=== PATIENT | female | born 1945 | race Caucasian/White ===

== ENCOUNTER → 2016-05-17 10:14 | Outpatient (CLI) | payer MEDICARE ==
[2015-03-20 13:55] VITALS: BMI 20.4
[~2016-05-17 10:14] MED LIST: ACETAMINOPHEN500 M1 PO; GLUCOPHAGE500 MG PO; LIBRIUM25 MG PO; MACROBID100 MG PO; MAG-OX 400 MG400 MG PO; MULTI-DAY VITAM1 TAB PO; PROAIR HFA8.5 GM INH; PROPRANOLOL HCL20 MG PO
== END | disposition home or self-care (01) ==
LOC: D.MRI 05-13 08:30
DX: M54.5 Low back pain (principal)

== ENCOUNTER 2016-06-20 15:08 | Emergency (ER) | payer MEDICARE ==
[2015-03-20 13:55] VITALS: BMI 20.4
[2016-06-20 15:34] LABS: BASOPHILS 0.4 % (0-2); HEMATOCRIT 33.4 % (36.0-48.0); HEMOGLOBIN 11.5 g/dL (12-16); IMMATURE GRANULOCYTES 0.1 % (0-5); LYMPHOCYTES 23.8 % (15-50); MCH 31.2 pg (26.0-34.0); MCHC 34.4 g/dL (31.0-37.0); MCV 90.5 fL (80.0-100.0); MEAN PLATELET VOLUME 8.9 fL (7.4-10.4); MONOCYTES 11.8 % (2-11); NEUTROPHILS 61.9 % (40-80); PLATELET COUNT 221 10x3/uL (130-400); RBC 3.69 10x6/uL (4.00-5.40); RDW 13.6 % (11.5-14.5)
[2016-06-20 16:19] LABS: ALBUMIN 3.6 g/dL (3.4-5.0); BILIRUBIN - TOTAL 0.42 mg/dL (0.2-1.3); CALCIUM 8.8 mg/dL (8.5-10.1); CARBON DIOXIDE 26.1 mmol/L (21.0-32.0); CREATININE - SERUM 1.1 mg/dL (0.6-1.3); POTASSIUM - SERUM 4.1 mmol/L (3.5-5.1); PROTEIN - SERUM 7.4 g/dL (6.4-8.2)
== END 2016-06-20 18:55 | disposition home or self-care (01) ==
LOC: D.ER 15:08
PROVIDERS: Emergency Medicine
DX: E86.0 Dehydration (principal); F41.9 Anxiety disorder, unspecified; F17.200 Nicotine dependence, unspecified, uncomplicated

== ENCOUNTER 2017-12-28 05:22 | Inpatient (IN) | payer MEDICARE ==
[~2017-12-28] VITALS: Ht 165.1 cm; Wt 45.4 kg
--- NOTE | ~2017-12-28 | OP ---
PATIENT NAME: CLIFF LINDO MEDICAL RECORD: [id number] :45 LOCATION:[facility] ADMISSION DATE:12/28/17 SURGEON: MARY KAY BURRIS DO DATE OF OPERATION: 01/02/2018 PROCEDURE PERFORMED: Right reverse total shoulder for fracture. PREOPERATIVE DIAGNOSIS: Four-part right proximal humerus fracture. POSTOPERATIVE DIAGNOSIS: Four-part right proximal humerus fracture. INDICATIONS: Ms. Lindo is a 72-year-old female who fell onto her right side 5 days ago. She fractured her right hip and her right proximal humerus. The right total hip was done on the . Her hemoglobin was low and we waited until today to do her shoulder due to that and that it would be more stress on her body. She was informed of risks and benefits of the procedure and consented to them. SURGEON: Mary Kay Burris DO DESCRIPTION OF PROCEDURE: The patient was taken to the operative suite, laid in the supine position, and positioned in beachchair. She was intubated and sedated and then the right shoulder was prepped and draped in sterile fashion. She was given 900 mg of clindamycin preoperatively. Time-out was performed. Everyone was in agreement with correct side, site, patient, and procedure. The incision then began at the deltopectoral interval down to the pec, where the proximal centimeter of the pec was released and the long head of the biceps tendon was tenodesed to that stump on the humerus. The rotator interval was then opened. The subscap and supraspinatus were then tagged with #2 Ethibond and the humeral head was exposed. A cut was made, finished it off to the fracture and then the glenoid was exposed. A centering pin was used and reamer was used to clean off the glenoid in preparation for the baseplate. The baseplate was then placed and 4 peripheral screws were put in and then the superior was put on with 3 mm of lateralization. We then reamed it by hand and it came to a #9 stem. We trialed the trial. The version was set with a version radha at 30 degrees to the elbow and then this was reduced and fit quite well. It had good position and good tension on the deltoid as well as the conjoined tendon. This was then dislocated and removed. Cement was mixed. Cement restrictor was placed down the humeral shaft and then the cement was placed down the humeral shaft. The actual stem was then placed and impacted into place. Sutures were ran through the greater tuberosity and ran around the stem itself and the poly was placed. The shoulder was reduced. It fit well and then the tuberosity was tied down to the prosthesis. A piece of humeral head was used on the prosthesis as well for bone graft in the window. Then, the greater tuberosity was tied to the stem and the subscapularis was repaired to the humerus. The rotator interval was closed with #2 Ethibond in [id number] stitches. The shoulder had good range of motion after this and any bony spikes were removed at that time with a rongeur. The wound was then thoroughly irrigated and closed with 2-0 Vicryl in inverted interrupted fashion and 4-0 Monocryl on the skin. Then, a Prineo Dermabond was placed on the skin for skin closure and then Adaptic, ABD pad, and Medipore were placed on the shoulder. The patient was placed in a sling, awakened, and taken to recovery in stable condition. BLOOD LOSS: Approximately 100 mL. OPERATIVE REPORT [id number] CLIFF LINDO COMPLICATIONS: None. TRANSINT:[id number] Voice Confirmation ID: [id number] DOCUMENT ID: [id number] MARY KAY BURRIS DO at 1447 CC: [id number] DICTATION DATE: 01/02/18 1542 DAIRY EQUIPMENT INSTALLER: 01/02/18 1826 [facility] [place] IN [facility] [address] [place] [address]
--- NOTE | ~2017-12-28 | MORECARE ---
CASE MANAGEMENT DISCHARGE SUMMARY PATIENT: CLIFF LINDO UNIT: [id number] ADM DATE: 12/28/17 AGE: 72 : 45 SEX: F ROOM/BED: D.2201 AUTHOR: HEATHER CRYSTAL PHYSICIAN: REFERRING PHYSICIAN: SHONA DAMON MD DATE OF SERVICE: 01/10/18 Discharge Plan Patient Name: CLIFF LINDO Facility: [facility]:[place] : 1945 Planned Disposition: Inpatient Rehab Anticipated Discharge Date: Discharge Date: 01/04/2018 Expected LOS: 0 Initial Reviewer: [email or web address] Initial Review Date: 12/28/2017 Generated: 01/10/18 9:57 am Comments DCP- Discharge Planning Updated by [email or web address]: Madina Fischer on 01/04/18 12:[address] I spoke with mr Bustamante to let him know that she was being dc to inpatient rehab DCP- Discharge Planning Updated by [id number]: Madina Fischer on 01/04/18 12:[address] imm served and explained DCP- Discharge Planning Updated by [id number]: Madina Fischer on 01/01/18 1:[address] Patient Name: CLIFF LINDO Admission Status: ER Accout number: [id number] Admission Date: 12-28-2017 : 1945 Admission Diagnosis: Attending: SHONA DAMON Current LOS: 4 Anticipated DC Date: Planned Disposition: Inpatient Rehab Primary Insurance: MEDICARE A & B Discharge Planning Comments: CM met with patient to assess discharge planning needs. Patient lives independently with her and son where she plans to return after inpatient rehab. 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 She denies any DME or home health. She and her son agree that she will need inpatient rehab when she is discharged. They plan on taking a cab home. She will need walker and BSC when she is discharged. She is having arm surgery tomorrow. CM will continue to follow and assist with DC planning Side Stitching Machine Operator: Madina Fischer DCPIA - Discharge Planning Initial Assessment Updated by [email or web address]: Madina Fischer on 01/01/18 2:27 pm * Is the patient Alert and Oriented? Yes * How many steps to enter\exit or inside your home? ramp * PCP angy * Pharm[facility] * Preadmission Environment Home with Family * ADLs Independent * Equipment None * List name and contact numbers for known caregivers / representatives who currently or will assist patient after discharge: augustine Bustamante (son) [phone] * Verbal permission to speak to the caregivers and representatives has been obtained from the patient. Yes * Community resources currently utilized None * Additional services required to return to the preadmission environment? Yes * Can the patient safely return to the preadmission environment? No * Has this patient been hospitalized within the prior 30 days at any hospital? No Coverage Notice Reviewer: [id number] Jaime Fischer Notice Issued Date-Time: 01/04/2018 13:40 Notice Type: IM Discharge Notice Notice Delivered To: Patient Relationship to Patient: Fur Dry Cleaner Name: Delivery Method: HAND - Hand Delivered Sayra Days: Prior Verbal Notification: Recipient Understood Notice: Yes Recipient Signature: Yes Med Rec Note Co-signed by Attending: Coverage Notice Comment: Last DP export: 01/04/18 12:58 Patient Name: CLIFF LINDO Page [id number] at 0857 All edits/amendments must be made on the electronic document DICTATION DATE: 01/10/18856 CANVAS WORKER: TED 01/10/18856 RPT#: [id number] DC DATE:01/04/18 STATUS: DIS IN [facility] [address] [place] [address] END OF REPORT
--- NOTE | ~2017-12-28 | OP ---
PATIENT NAME: CLIFF LINDO MEDICAL RECORD: [id number] :45 LOCATION:[facility] ADMISSION DATE:12/28/17 SURGEON: DOE BURRIS DO DATE OF OPERATION: 12/28/2017 PROCEDURE PERFORMED: Right total hip arthroplasty. PREOPERATIVE DIAGNOSIS: Right femoral neck fracture. POSTOPERATIVE DIAGNOSIS: Right femoral neck fracture. INDICATIONS: Ms. Lindo is a 72-year-old female who had been sober for 2 years she said and got hold of a bottle last night, got drunk and fell onto her right side. She fractured her right hip at the subcapital region. She is a smoker and she says she does not drink any more other than last night. She fell onto her right side, fractured her right hip and her right proximal humerus. I decided to do the right hip first to get her up and ambulating. I informed her of the risks and benefits of the procedure including infection, bleeding, damage to nerves and vessels, fracture, need for further surgery. She was okay with those risks and she consented to the procedure, even blood clots and as the risk. She was okay with that and then consented to the procedure. SURGEON: Doe Burris DO ENGINEERING TEACHER: Kayode Field MD DESCRIPTION OF PROCEDURE: The patient was taken to the operative suite, laid in supine position, the right hip was prepped and draped in sterile fashion and then a timeout was performed. Everyone was in agreement as to the correct site, side, and patient. The patient received 2 grams of Ancef preoperatively. The incision was then began over the tensor fascia isaura using a 10-blade and then a Bovie. Careful dissection was made down to the tensor fascia isaura fascia. This was incised and the fascia was taken anterior to the muscle belly posteriorly. The interval in between the rectus was then opened up and the rectus was taken medially and tensor fascia isaura taken laterally. This procedure was assisted by Dr. Ezra Field. Once the interval was then opened between the tensor fascia isaura and the rectus, the ascending branch of the lateral femoral circumflex was found and tied and then Bovied and Aquamantys was used to coagulate as well. The capsule was then exposed and once the capsule was opened, a hamilton of blood came out due to the fracture. The capsule was then opened and tagged. Hohmanns were placed around the neck. The neck cut was made. The head was then removed and the pulvinar and ligamentum teres was removed out of the acetabulum. Reaming then began, we reamed up to a 48 and 48 cup fit nicely using OsseoTI 48 acetabular cup, a 38 bearing G7 dual mobility hip, and then once the acetabulum was placed it was in good position seen on x-ray. The femur was exposed and the canal finder was used and the Vessel cutter was then used posteriorly. The broaching began at 4 up to 8 and then reduced. Once the hip was reduced with a -3 neck, it seemed to be the correct fit. It was then dislocated again. Once it was dislocated, the stem was kind of loose and a 9 broach was put down and a 9 stem was put down and then we used a high offset 9 Taperloc stem on the femur. This was then reduced and seemed to be in good position and the actual implant was put on and reduced. AP pelvis was taken as well as a right hip to confirm good placement and good fit with the 9. No fracture was seen in the femur either. Thorough irrigation was done throughout the procedure and the capsule was then closed. Surgicel powder and tobramycin, vancomycin were placed in the OPERATIVE REPORT [id number] CLIFF LINDO wound. The tensor fascia isaura fascia was then closed with #1 Vicryl in a npjcio-bs-anhxp in a running locking stitch. The skin was closed with 2-0 Vicryl in inverted interrupted fashion, 4-0 Monocryl was ran the skin, and Prineo glue placed on the skin. Telfa and Tegaderm were placed on the hip. The patient was then awakened and taken to recovery in stable condition. BLOOD LOSS: Approximately 150 mL. COMPLICATIONS: None. TRANSINT:[id number] Voice Confirmation ID: [id number] DOCUMENT ID: [id number] DOE BURRIS DO at 1011 CC: [id number] DICTATION DATE: 12/28/17 1555 SERVICES TECH: 12/28/17 5220 ADM IN [facility] [id number] [place] [address]
--- NOTE | ~2017-12-28 | MORECARE ---
CASE MANAGEMENT DISCHARGE SUMMARY PATIENT: CLIFF LINDO UNIT: [id number] ADM DATE: 12/28/17 AGE: 72 : 45 SEX: F ROOM/BED: D.2201 AUTHOR: BONILLADOC PHYSICIAN: REFERRING PHYSICIAN: SHONA DAMON MD DATE OF SERVICE: 01/04/18 Discharge Plan Patient Name: CLIFF LINDO Facility: [facility]:[place] : 1945 Planned Disposition: Inpatient Rehab Anticipated Discharge Date: Discharge Date: Expected LOS: Initial Reviewer: [id number] Initial Review Date: 12/28/2017 Generated: 01/04/18 2:50 pm Comments DCP- Discharge Planning Updated by [id number]: Madina Fischer on 01/04/18 12:[address] imm served and explained DCP- Discharge Planning Updated by [email or web address]: Madina Fischer on 01/01/18 1:[address] Patient Name: CLIFF LINDO Admission Status: ER Accout number: [id number] Admission Date: 12-28-2017 : 1945 Admission Diagnosis: Attending: SHONA DAMON Current LOS: 4 Anticipated DC Date: Planned Disposition: Inpatient Rehab Primary Insurance: MEDICARE A & B Discharge Planning Comments: CM met with patient to assess discharge planning needs. Patient lives independently with her and son where she plans to return after inpatient rehab. 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 She denies any DME or home health. She and her son agree that she will need inpatient rehab when she is discharged. They plan on taking a cab home. She will need walker and BSC when she is discharged. She is having arm surgery tomorrow. CM will continue to follow and assist with DC planning Construction Rigger: Madina Fischer DCPIA - Discharge Planning Initial Assessment Updated by [email or web address]: Madina Fischer on 01/01/18 2:27 pm * Is the patient Alert and Oriented? Yes * How many steps to enter\exit or inside your home? ramp * PCP angy * Pharmacy [place] * Preadmission Environment Home with Family * ADLs Independent * Equipment None * List name and contact numbers for known caregivers / representatives who currently or will assist patient after discharge: augustine Bustamante (son) [phone] * Verbal permission to speak to the caregivers and representatives has been obtained from the patient. Yes * Community resources currently utilized None * Additional services required to return to the preadmission environment? Yes * Can the patient safely return to the preadmission environment? No * Has this patient been hospitalized within the prior 30 days at any hospital? No Coverage Notice Reviewer: [id number] Jaime Fischer Notice Issued Date-Time: 01/04/2018 13:40 Notice Type: IM Discharge Notice Notice Delivered To: Patient Relationship to Patient: Sales Manager Prearranged Funerals Name: Delivery Method: HAND - Hand Delivered Sayra Days: Prior Verbal Notification: Recipient Understood Notice: Yes Recipient Signature: Yes Med Rec Note Co-signed by Attending: Coverage Notice Comment: Last DP export: 01/01/18 1:36 Patient Name: CLIFF LINDO Page [id number] at 1351 All edits/amendments must be made on the electronic document DICTATION DATE: 01/04/18 1350 CUSTOM HOME INSTALLER: TED 01/04/18 1350 RPT#: [id number] DC DATE: STATUS: ADM IN [facility] [address] [place] [address] END OF REPORT
--- NOTE | ~2017-12-28 | MORECARE ---
CASE MANAGEMENT DISCHARGE SUMMARY PATIENT: CLIFF LINDO UNIT: [id number] ADM DATE: 12/28/17 AGE: 72 : 45 SEX: F ROOM/BED: D.2201 AUTHOR: HEATHER CRYSTAL PHYSICIAN: REFERRING PHYSICIAN: SHONA DAMON MD DATE OF SERVICE: 01/04/18 Discharge Plan Patient Name: CLIFF LINDO Facility: [facility]:[place] : 1945 Planned Disposition: Inpatient Rehab Anticipated Discharge Date: Discharge Date: Expected LOS: Initial Reviewer: [id number] Initial Review Date: 12/28/2017 Generated: 01/04/18 2:58 pm Comments DCP- Discharge Planning Updated by [email or web address]: Madina Fischer on 01/04/18 12:[address] I spoke with mr Bustamante to let him know that she was being dc to inpatient rehab DCP- Discharge Planning Updated by [email or web address]: Madina Fischer on 01/04/18 12:[address] imm served and explained DCP- Discharge Planning Updated by [id number]: Madina Fischer on 01/01/18 1:[address] Patient Name: CLIFF LINDO Admission Status: ER Accout number: [id number] Admission Date: 12-28-2017 : 1945 Admission Diagnosis: Attending: SHONA DAMON Current LOS: 4 Anticipated DC Date: Planned Disposition: Inpatient Rehab Primary Insurance: MEDICARE A & B Discharge Planning Comments: CM met with patient to assess discharge planning needs. Patient lives independently with her and son where she plans to return after inpatient rehab. 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 She denies any DME or home health. She and her son agree that she will need inpatient rehab when she is discharged. They plan on taking a cab home. She will need walker and BSC when she is discharged. She is having arm surgery tomorrow. CM will continue to follow and assist with DC planning Woolen Tester: Madina Fischer DCPIA - Discharge Planning Initial Assessment Updated by [id number]: Madian Fischer on 01/01/18 2:27 pm * Is the patient Alert and Oriented? Yes * How many steps to enter\exit or inside your home? ramp * PCP angy * Pharmacy [facility] * Preadmission Environment Home with Family * ADLs Independent * Equipment None * List name and contact numbers for known caregivers / representatives who currently or will assist patient after discharge: augustine Bustamante (son) [phone] * Verbal permission to speak to the caregivers and representatives has been obtained from the patient. Yes * Community resources currently utilized None * Additional services required to return to the preadmission environment? Yes * Can the patient safely return to the preadmission environment? No * Has this patient been hospitalized within the prior 30 days at any hospital? No Coverage Notice Reviewer: [email or web address] Jaime Fischer Notice Issued Date-Time: 01/04/2018 13:40 Notice Type: IM Discharge Notice Notice Delivered To: Patient Relationship to Patient: Assistant Librarian Name: Delivery Method: HAND - Hand Delivered Sayra Days: Prior Verbal Notification: Recipient Understood Notice: Yes Recipient Signature: Yes Med Rec Note Co-signed by Attending: Coverage Notice Comment: Last DP export: 01/04/18 12:51 Patient Name: CLIFF LINDO Page 17223 at 1358 All edits/amendments must be made on the electronic document DICTATION DATE: 01/04/181357 WOOD CALKER: TED 01/04/18 1358 RPT#: [id number] DC DATE: STATUS: ADM IN [facility] [address] [place] [address] END OF REPORT
--- NOTE | ~2017-12-28 | MORECARE ---
CASE MANAGEMENT DISCHARGE SUMMARY PATIENT: CLIFF LINDO UNIT: [id number] ADM DATE: 12/28/17 AGE: 72 : 45 SEX: F ROOM/BED: D.2201 AUTHOR: HEATHER CRYSTAL PHYSICIAN: REFERRING PHYSICIAN: SHONA DAMON MD DATE OF SERVICE: 01/01/18 Discharge Plan Patient Name: CLIFF LINDO Facility: [facility]:[place] : 1945 Planned Disposition: Inpatient Rehab Anticipated Discharge Date: Discharge Date: Expected LOS: Initial Reviewer: [email or web address] Initial Review Date: 12/28/2017 Generated: 01/01/18 3:36 pm Comments DCP- Discharge Planning Updated by [email or web address]: Madina Fischer on 01/01/18 1:[address] Patient Name: CLIFF LINDO Admission Status: ER Accout number: [id number] Admission Date: 12-28-2017 : 1945 Admission Diagnosis: Attending: SHONA DAMON Current LOS: 4 Anticipated DC Date: Planned Disposition: Inpatient Rehab Primary Insurance: MEDICARE A & B Discharge Planning Comments: CM met with patient to assess discharge planning needs. Patient lives independently with her and son where she plans to return after inpatient rehab. 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 She denies any DME or home health. She and her son agree that she will need inpatient rehab when she is discharged. They plan on taking a cab home. She will need walker and BSC when she is discharged. She is having arm surgery tomorrow. CM will continue to follow and assist with DC planning Program Scheduler: Madina Fischer DCPIA - Discharge Planning Initial Assessment Updated by [email or web address]: Madina Fischer on 01/01/18 2:27 pm * Is the patient Alert and Oriented? Yes * How many steps to enter\exit or inside your home? ramp * PCP angy * Pharmacy [facility] * Preadmission Environment Home with Family * ADLs Independent * Equipment None * List name and contact numbers for known caregivers / representatives who currently or will assist patient after discharge: augustine Bustamante (son) [phone] * Verbal permission to speak to the caregivers and representatives has been obtained from the patient. Yes * Community resources currently utilized None * Additional services required to return to the preadmission environment? Yes * Can the patient safely return to the preadmission environment? No * Has this patient been hospitalized within the prior 30 days at any hospital? No Patient Name: CLIFF LINDO Page 70052 at 1436 All edits/amendments must be made on the electronic document DICTATION DATE: 01/01/181435 ROLL SHOP SUPERVISOR: TED 01/01/181435 RPT#: [id number] DC DATE: STATUS: ADM IN [facility] [address] [place] [address] END OF REPORT
--- NOTE | ~2017-12-28 | HP ---
PATIENT: CLIFF LINDO MEDICAL RECORD: [id number] ACCOUNT: [id number] LOCATION:[facility] : 45 ADMISSION DATE: 12/28/17 PCP: SHONA DAMON MD HISTORY AND PHYSICAL EXAMINATION DATE OF ADMISSION: 12/28/2017 CHIEF COMPLAINT: Pain in right shoulder and pain in right hip. HISTORY OF PRESENT ILLNESS: The patient is a 72-year-old female who had fallen last night. She states she has not had any alcohol in the last 2 to 2-1/2 years. She did buy a pint of whiskey. After drinking whiskey, she states she attempted to answer phone, falling on the floor. She apparently laid in the floor from 6:00 p.m. to 6:00 a.m. this morning. She presented to the Emergency Room, where she was found to have a right hip fracture as well as a right proximal humeral fracture. It was felt the patient warranted admission. PAST MEDICAL HISTORY: Her past history is significant in that she has had history of having COPD. She has had vitamin D deficiency, hyperlipidemia, anxiety, prior history of alcoholism, tobacco use, and essential tremor. She has had history of having asthma in the past. MEDICATIONS: She has been on BuSpar 15 mg one tablet p.o. b.i.d., nabumetone 500 mg two tablets p.o. q.a.m., primidone 250 mg once a day, Ventolin inhaler two puffs q. 4 hours p.r.n. shortness of breath, and Zoloft 50 mg one p.o. daily. ALLERGIES: No known drug allergies. SOCIAL HISTORY: The patient is retired. Educated through the 12th grade. She is . She continues to be a smoker of a pack a day. She has smoked since age 16. She has had a history of alcoholism; but, as stated above, she has not had any alcohol for the past 2-1/2 years until yesterday. FAMILY HISTORY: Noncontributory. REVIEW OF SYSTEMS: CONSTITUTIONAL: She denies any headache, seizure, or syncope. She denies any change in visual or auditory acuity. PULMONARY: She denies any shortness of breath, cough or congestion, history of TB, asthma, or bronchitis. CARDIOVASCULAR: She has had no chest pain, palpitation, PND, or orthopnea. GASTROINTESTINAL: No chronic nausea, vomiting, melena, or hematochezia. GENITOURINARY: No urgency, frequency, or dysuria. PHYSICAL EXAMINATION: GENERAL: In the Emergency Room, she is alert. She is oriented times 3. VITAL SIGNS: Her temperature is 96.8, pulse 84, respirations 18, blood pressure 170/69, and O2 sat is 98%. HEENT: Her head is normocephalic. No lesions. Ears; TMs clear. Eyes; pupils are equal, round, and reactive to light. Her extraocular movements are intact. Her nasal cavity, oral cavity, and oropharynx clear. NECK: Supple. There is no adenopathy. HEART: Regular rate and rhythm without any murmurs, gallops, or rubs. LUNGS: Clear. HISTORY AND PHYSICAL [id number] CLIFF LINDO RAVEN ABDOMEN: Soft and nontender. EXTREMITIES: The patient has large area of ecchymosis over the right shoulder. She does have pain with movement. She also has shortening internal rotation of the right lower extremity and pain in the groin. DIAGNOSTIC DATA: She did have a CT scan of the head. CT scan showed mild chronic microvascular ischemic changes. No acute intracranial abnormalities were noted. Shoulder x-ray revealed impacted comminuted fracture of the right humeral neck as well as the head, extending through the greater tuberosity. Hip x-ray revealed probable nondisplaced fracture of the right femoral neck. LABORATORY DATA: She had a white count of 10.8, hemoglobin 10.9, hematocrit 31.2, and her platelets are 208. Sodium 129, potassium 4.1, chloride is 94, CO2 is 27, BUN is 5, and creatinine is 0.5. INR is 1.0. ASSESSMENT: Status post fall secondary to intoxication of alcohol, right humeral fracture, right hip fracture, history of COPD, anxiety, and essential tremor. PLAN: The patient is admitted. Orthopedic consultation will be obtained for open reduction and internal fixation of the fractures. We will start DT precautions. TRANSINT:[id number] Voice Confirmation ID: [id number] DOCUMENT ID: [id number] SHONA DAMON MD at 0658 CC: [id number] DICTATION DATE: 11/08/18 1822 ENGINEERING SURVEYOR: 12/28/172001 ADM IN [facility] [address] [id number]
[2017-12-28] MEDS ORDERED: MYSOLINE 50 MG50 MG PO (05:26)
[2017-12-28] MEDS ORDERED: PAXIL20 MG PO (05:27)
[2017-12-28 07:42] LABS: BASOPHILS 0.1 % (0-2); EOSINOPHILS 0.2 % (0-7); HEMATOCRIT 31.2 % (36.0-48.0); HEMOGLOBIN 10.9 g/dL (12-16); IMMATURE GRANULOCYTES 0.3 % (0-5); LYMPHOCYTES 8.5 % (15-50); MCH 35.6 pg (26.0-34.0); MCHC 34.9 g/dL (31.0-37.0); MEAN PLATELET VOLUME 8.5 fL (7.4-10.4); MONOCYTES 10.8 % (2-11); NEUTROPHILS 80.1 % (40-80); PLATELET COUNT 208 10x3/uL (130-400); RBC 3.06 10x6/uL (4.00-5.40); RDW 14.3 % (11.5-14.5); WBC 10.8 10x3/uL (4.8-10.8)
[2017-12-28 07:43] VITALS: BP 156/80
[2017-12-28 08:03] LABS: ALBUMIN 3.2 g/dL (3.4-5.0); ALKALINE PHOSPHATASE 100 U/L (46-116); ALT (SGPT) 18 U/L (10-68); BILIRUBIN - TOTAL 0.61 mg/dL (0.2-1.3); CALC OSMOLALITY 255 mosm/kg (275-300); CALCIUM 8.1 mg/dL (8.5-10.1); CARBON DIOXIDE 27.7 mmol/L (21.0-32.0); CHLORIDE - SERUM 94 mmol/L (98-107); CREATININE - SERUM 0.6 mg/dL (0.6-1.3); GLUCOSE 105 mg/dL (74-106); MAGNESIUM - SERUM 1.4 mg/dL (1.8-2.4); POTASSIUM - SERUM 4.1 mmol/L (3.5-5.1); PROTEIN - SERUM 6.5 g/dL (6.4-8.2); SODIUM 129 mmol/L (136-145); UREA NITROGEN 5 mg/dL (7-18); eGFR NON AFRICAN AMERICAN > 90 mL/min (90-120)
[2017-12-28 08:16] LABS: INR 1.02 (0.85-1.17); PROTIME 13.1 SECONDS (11.6-15.0)
[2017-12-28 17:03] VITALS: BP 179/65
[2017-12-28 18:05] VITALS: BP 179/65
[2017-12-28 19:47] VITALS: BP 164/76
[2017-12-29] VITALS (11 sets, daily range): BP systolic 109–154; BP diastolic 46–61; Ht 165.1 cm; Wt 45.4 kg
[2017-12-29 06:14] LABS: CALC OSMOLALITY 256 mosm/kg (275-300); CALCIUM 7.4 mg/dL (8.5-10.1); CARBON DIOXIDE 24.9 mmol/L (21.0-32.0); CHLORIDE - SERUM 97 mmol/L (98-107); CREATININE - SERUM 0.6 mg/dL (0.6-1.3); GLUCOSE 83 mg/dL (74-106); POTASSIUM - SERUM 3.7 mmol/L (3.5-5.1); SODIUM 130 mmol/L (136-145); UREA NITROGEN 4 mg/dL (7-18); eGFR NON AFRICAN AMERICAN > 90 mL/min (90-120)
[2017-12-29 07:14] LABS: BASOPHILS 0.1 % (0-2); EOSINOPHILS 0 % (0-7); IMMATURE GRANULOCYTES 0.5 % (0-5); LYMPHOCYTES 13.3 % (15-50); MCH 34.2 pg (26.0-34.0); MCV 103.7 fL (80.0-100.0); MEAN PLATELET VOLUME 10.1 fL (7.4-10.4); MONOCYTES 10.5 % (2-11); NEUTROPHILS 75.6 % (40-80); RDW 14.5 % (11.5-14.5)
[2017-12-29 07:16] LABS: RBC 2.19 10x6/uL (4.00-5.40); WBC 7.9 10x3/uL (4.8-10.8)
[2017-12-29 07:17] LABS: HEMATOCRIT 22.7 % (36.0-48.0); HEMOGLOBIN 7.5 g/dL (12-16); PLATELET COUNT 109 10x3/uL (130-400)
[2017-12-30 01:05] VITALS: BP 153/62
[2017-12-30 04:45] VITALS: BP 165/66
[2017-12-30 06:13] LABS: BASOPHILS 0.1 % (0-2); EOSINOPHILS 0.2 % (0-7); IMMATURE GRANULOCYTES 0.3 % (0-5); LYMPHOCYTES 8.6 % (15-50); MCHC 34.4 g/dL (31.0-37.0); MEAN PLATELET VOLUME 8.9 fL (7.4-10.4); MONOCYTES 11.9 % (2-11); NEUTROPHILS 78.9 % (40-80); RDW 17.3 % (11.5-14.5)
[2017-12-30 06:21] LABS: HEMATOCRIT 30.5 % (36.0-48.0); HEMOGLOBIN 10.5 g/dL (12-16); MCV 95.9 fL (80.0-100.0); PLATELET COUNT 176 10x3/uL (130-400); RBC 3.18 10x6/uL (4.00-5.40); WBC 10.9 10x3/uL (4.8-10.8)
[2017-12-30 06:26] LABS: CALC OSMOLALITY 254 mosm/kg (275-300); CALCIUM 7.6 mg/dL (8.5-10.1); CARBON DIOXIDE 26.1 mmol/L (21.0-32.0); CHLORIDE - SERUM 94 mmol/L (98-107); CREATININE - SERUM 0.6 mg/dL (0.6-1.3); GLUCOSE 115 mg/dL (74-106); POTASSIUM - SERUM 3.4 mmol/L (3.5-5.1); SODIUM 127 mmol/L (136-145); UREA NITROGEN 9 mg/dL (7-18); eGFR NON AFRICAN AMERICAN > 90 mL/min (90-120)
[2017-12-30 09:18] VITALS: BP 150/61
[2017-12-30 12:28] VITALS: BP 153/68
[2017-12-30 16:28] VITALS: BP 122/52
[2017-12-30 20:06] VITALS: BP 125/53
[2017-12-31 04:26] VITALS: BP 140/58
[2017-12-31 05:01] LABS: BASOPHILS 0.1 % (0-2); EOSINOPHILS 0.8 % (0-7); HEMATOCRIT 27.6 % (36.0-48.0); HEMOGLOBIN 9.5 g/dL (12-16); IMMATURE GRANULOCYTES 0.4 % (0-5); LYMPHOCYTES 9.1 % (15-50); MCH 32.8 pg (26.0-34.0); MCHC 34.4 g/dL (31.0-37.0); MCV 95.2 fL (80.0-100.0); MEAN PLATELET VOLUME 8.7 fL (7.4-10.4); MONOCYTES 11.6 % (2-11); PLATELET COUNT 174 10x3/uL (130-400); WBC 11.4 10x3/uL (4.8-10.8)
[2017-12-31 05:11] LABS: CALC OSMOLALITY 253 mosm/kg (275-300); CALCIUM 7.5 mg/dL (8.5-10.1); CARBON DIOXIDE 27.6 mmol/L (21.0-32.0); CHLORIDE - SERUM 94 mmol/L (98-107); GLUCOSE 107 mg/dL (74-106); POTASSIUM - SERUM 3.5 mmol/L (3.5-5.1); SODIUM 127 mmol/L (136-145); UREA NITROGEN 10 mg/dL (7-18)
[2017-12-31 05:14] LABS: CREATININE - SERUM 0.4 mg/dL (0.6-1.3); eGFR NON AFRICAN AMERICAN > 90 mL/min (90-120)
[2017-12-31 09:47] VITALS: BP 148/65
[2017-12-31 13:46] VITALS: BP 146/71
[2017-12-31 16:47] VITALS: BP 129/62
[2017-12-31 21:29] VITALS: BP 134/58
[2018-01-01 04:23] LABS: BASOPHILS 0.1 % (0-2); CALC OSMOLALITY 252 mosm/kg (275-300); CALCIUM 7.8 mg/dL (8.5-10.1); CARBON DIOXIDE 27.5 mmol/L (21.0-32.0); CHLORIDE - SERUM 93 mmol/L (98-107); CREATININE - SERUM 0.5 mg/dL (0.6-1.3); EOSINOPHILS 1.3 % (0-7); GLUCOSE 101 mg/dL (74-106); HEMATOCRIT 26.9 % (36.0-48.0); HEMOGLOBIN 9.5 g/dL (12-16); IMMATURE GRANULOCYTES 0.2 % (0-5); LYMPHOCYTES 12.5 % (15-50); MCH 33.8 pg (26.0-34.0); MCHC 35.3 g/dL (31.0-37.0); MCV 95.7 fL (80.0-100.0); MEAN PLATELET VOLUME 8.5 fL (7.4-10.4); MONOCYTES 13.8 % (2-11); NEUTROPHILS 72.1 % (40-80); PLATELET COUNT 205 10x3/uL (130-400); POTASSIUM - SERUM 3.8 mmol/L (3.5-5.1); RBC 2.81 10x6/uL (4.00-5.40); RDW 16.5 % (11.5-14.5); SODIUM 126 mmol/L (136-145); UREA NITROGEN 12 mg/dL (7-18); WBC 10.6 10x3/uL (4.8-10.8); eGFR NON AFRICAN AMERICAN > 90 mL/min (90-120)
[2018-01-01 05:02] VITALS: BP 146/63
[2018-01-01 08:32] VITALS: BP 149/69
[2018-01-01 12:48] VITALS: BP 110/55
[2018-01-01 17:17] VITALS: BP 135/59
[2018-01-01 21:11] VITALS: BP 146/62
[2018-01-02] VITALS (8 sets, daily range): BP systolic 120–152; BP diastolic 55–72
[2018-01-02 05:08] LABS: BASOPHILS 0.1 % (0-2); CALC OSMOLALITY 257 mosm/kg (275-300); CARBON DIOXIDE 28.8 mmol/L (21.0-32.0); CHLORIDE - SERUM 94 mmol/L (98-107); CREATININE - SERUM 0.5 mg/dL (0.6-1.3); GLUCOSE 109 mg/dL (74-106); HEMOGLOBIN 9.1 g/dL (12-16); IMMATURE GRANULOCYTES 0.3 % (0-5); LYMPHOCYTES 12.2 % (15-50); MCH 32.6 pg (26.0-34.0); MCHC 33.7 g/dL (31.0-37.0); MCV 96.8 fL (80.0-100.0); MEAN PLATELET VOLUME 8.7 fL (7.4-10.4); MONOCYTES 16.8 % (2-11); NEUTROPHILS 67.6 % (40-80); PLATELET COUNT 237 10x3/uL (130-400); RBC 2.79 10x6/uL (4.00-5.40); RDW 16.3 % (11.5-14.5); SODIUM 128 mmol/L (136-145); UREA NITROGEN 13 mg/dL (7-18); eGFR NON AFRICAN AMERICAN > 90 mL/min (90-120)
[2018-01-03 03:39] VITALS: BP 161/59
[2018-01-03 04:55] LABS: BASOPHILS 0.1 % (0-2); EOSINOPHILS 1.7 % (0-7); HEMATOCRIT 27.5 % (36.0-48.0); HEMOGLOBIN 9.3 g/dL (12-16); IMMATURE GRANULOCYTES 0.4 % (0-5); LYMPHOCYTES 11.2 % (15-50); MCH 32.9 pg (26.0-34.0); MCHC 33.8 g/dL (31.0-37.0); MCV 97.2 fL (80.0-100.0); MEAN PLATELET VOLUME 8.8 fL (7.4-10.4); MONOCYTES 16.6 % (2-11); PLATELET COUNT 270 10x3/uL (130-400); RBC 2.83 10x6/uL (4.00-5.40); RDW 16.2 % (11.5-14.5); WBC 10.7 10x3/uL (4.8-10.8)
[2018-01-03 05:24] LABS: CALCIUM 7.6 mg/dL (8.5-10.1); CHLORIDE - SERUM 94 mmol/L (98-107); GLUCOSE 101 mg/dL (74-106); POTASSIUM - SERUM 4.6 mmol/L (3.5-5.1); SODIUM 129 mmol/L (136-145); eGFR NON AFRICAN AMERICAN 87 mL/min (90-120)
[2018-01-03 05:27] LABS: CALC OSMOLALITY 260 mosm/kg (275-300); CREATININE - SERUM 0.7 mg/dL (0.6-1.3); UREA NITROGEN 19 mg/dL (7-18)
[2018-01-03 09:03] VITALS: BP 162/72
[2018-01-03 12:36] VITALS: BP 166/72
[2018-01-03 16:52] VITALS: BP 166/65
[2018-01-03 20:00] VITALS: BP 169/68
[2018-01-04 03:00] VITALS: BP 153/68
[2018-01-04 05:03] LABS: BASOPHILS 0.2 % (0-2); EOSINOPHILS 1.1 % (0-7); HEMATOCRIT 27.4 % (36.0-48.0); HEMOGLOBIN 9.5 g/dL (12-16); IMMATURE GRANULOCYTES 0.7 % (0-5); LYMPHOCYTES 6.6 % (15-50); MCH 32.9 pg (26.0-34.0); MCHC 34.7 g/dL (31.0-37.0); MEAN PLATELET VOLUME 8.7 fL (7.4-10.4); NEUTROPHILS 76.4 % (40-80); PLATELET COUNT 313 10x3/uL (130-400); RBC 2.89 10x6/uL (4.00-5.40); RDW 16.2 % (11.5-14.5); WBC 13.2 10x3/uL (4.8-10.8)
[2018-01-04 05:25] LABS: MCV 94.8 fL (80.0-100.0)
[2018-01-04 05:32] LABS: CALCIUM 7.8 mg/dL (8.5-10.1); CHLORIDE - SERUM 91 mmol/L (98-107); GLUCOSE 118 mg/dL (74-106); POTASSIUM - SERUM 4.2 mmol/L (3.5-5.1); SODIUM 124 mmol/L (136-145)
[2018-01-04 05:54] LABS: CALC OSMOLALITY 251 mosm/kg (275-300); CREATININE - SERUM 0.5 mg/dL (0.6-1.3); UREA NITROGEN 14 mg/dL (7-18); eGFR NON AFRICAN AMERICAN > 90 mL/min (90-120)
[2018-01-04 08:57] VITALS: BP 162/72
[2018-01-04] MEDS ORDERED: ELIQUIS2.5 MG PO (11:44)
[2018-01-04] MEDS ORDERED: MYSOLINE250 MG PO (11:45)
[2018-01-04] MEDS ORDERED: MEGACE400 MG/10 PO (11:47)
[2018-01-04] MEDS ORDERED: NORCO 5/325 TAB1 TAB PO (11:47)
[2018-01-04 12:46] VITALS: BP 198/93
[2018-01-04] MEDS ORDERED: CALCIUM 250+D T1 TAB PO (16:55)
[2018-01-04] MEDS ORDERED: MULTI-DAY VITAM1 TAB PO (16:56)
[2018-01-04] MEDS ORDERED: SENNA8.6 MG PO (16:56)
== END 2018-01-04 16:06 | DRG 469 ==
LOC: D.ER 05:22 → D.MS 07:24 → D.EDHOLD 07:24 → D.MS 08:33
PROVIDERS: Emergency Medicine; Family Medicine; Orthopaedic Surgery
PROC: 0SR90JZ Replacement of Right Hip Joint with Synthetic Substitute, Open Approach (ICD-10-PCS; principal; 2017-12-28 12:00)
PROC: 0RRJ00Z Replacement of Right Shoulder Joint with Reverse Ball and Socket Synthetic Substitute, Open Approach (ICD-10-PCS; 2018-01-02)
DX: S42.251A Displaced fracture of greater tuberosity of right humerus, initial encounter for closed fracture (principal); S72.011A Unspecified intracapsular fracture of right femur, initial encounter for closed fracture; D62 Acute posthemorrhagic anemia; J44.9 Chronic obstructive pulmonary disease, unspecified; F10.10 Alcohol abuse, uncomplicated; W19.XXXA Unspecified fall, initial encounter

== ENCOUNTER 2018-01-04 16:37 | Inpatient (IN) | payer MEDICARE ==
[~2018-01-04] VITALS: Ht 165.1 cm; Wt 47.6 kg
--- NOTE | ~2018-01-04 | RHP ---
PATIENT: CLIFF LINDO MEDICAL RECORD: [id number] ACCOUNT: [id number] LOCATION:[facility] : 45 ADMISSION DATE: 01/04/18 REHABILITATION HISTORY AND PHYSICAL EXAMINATION POST ADMISSION PHYSICIAN EXAMINATION DATE OF ADMISSION: 01/04/2018 ADMITTING DIAGNOSES: Major multiple fractures, status post right total hip replacement secondary to acute nondisplaced right hip subcapital fracture, also status post total shoulder arthroplasty secondary to a comminuted fracture of the right humeral head and neck with involvement of the greater tuberosity. HISTORY OF PRESENT ILLNESS: The patient admitted to inpatient rehab for multiple medical fractures involving the right hip and also the right humeral head. She presented to ED due to a fall the night prior to the hospitalization. She has a history of alcohol abuse, but has not had a drink in approximately 2 years. She apparently brought a pint of whiskey, had a couple drinks and fell. She attempted to answer the phone apparently fallen to the floor. She laid on the floor from 6:00 p.m. to 6:00 a.m. She presented with complaints of right hip and right shoulder pain. She was found to have an acute nondisplaced right hip subcapital fracture and comminuted fracture of the right humeral head involving the greater tuberosity. She underwent a right MESERET on 12/28/2017 and a right TSA on 01/02/2018. She has had acute blood loss anemia, requiring packed red blood cells. She has had IV antibiotic therapy and impaired mobility. Her right upper extremity is in a sling with weightbearing precautions. She has self-care deficit, weakness. Her primary caregiver is actually her and these are all discharge barriers for her going home. She lives at home with a debilitated . She was completely independent with her ADLs and mobility prior to this fall. Currently, set up for total assist with her ADLs and mod assist to total assist for mobility. She would like to return home back to her prior level of functioning if there is any possibility of this. COMORBIDITIES: Include status post fall with right hip ORIF; total shoulder replacement, status post fall; closed fracture of the right proximal humerus; hyponatremia; acute postop pain; abdominal pain; tobacco use; recent alcohol use and constipation. PAST MEDICAL HISTORY: Significant for COPD, vitamin D deficiency, hyperlipidemia, anxiety, history of alcoholism, tobacco use, essential tremor, asthma, and depression. PAST SURGICAL HISTORY: None prior to this accident. ALLERGIES: No known drug allergies. CURRENT MEDICATIONS: Include Calmoseptine to apply b.i.d., multivitamin daily, Paxil 20 mg daily, Megace 400 mg daily, Senokot 2 tabs at bedtime, calcium 500 mg t.i.d., Mysoline 250 mg at bedtime, [place] 1 tab every 4 hours p.r.n., Eliquis 2.5 mg b.i.d., and polyethylene glycol 17 grams in 8 ounces of water daily. HABITS: No current tobacco use. Obviously, she fell off the wagon and drank some alcohol the other night. FAMILY HISTORY: Noncontributory. HISTORY AND PHYSICAL [id number] CLIFF LINDO SOCIAL HISTORY: The patient hopes to return back home and get back to her prior level of functioning. REVIEW OF SYSTEMS: GENERAL: Denies weakness or fatigue. HEENT: Denies cold, cough, or congestion. CARDIOVASCULAR: Denies chest pain. PHYSICAL EXAMINATION: VITAL SIGNS: Stable, afebrile. GENERAL: A thin female in no acute distress upon exam. HEENT: Normocephalic and atraumatic. Mucosa moist. NECK: Supple. No lymphadenopathy. LUNGS: Clear at this time. HEART: Regular rate and rhythm. ABDOMEN: Benign. EXTREMITIES: She does have normal postop swelling. She has her arm in a sling and hip area looks pretty good. LABORATORY DATA: White count is 12.9, H&H of 9.5 and 27.3 and platelet count is 400. Her sodium is 124, potassium 4.1, BUN and creatinine of 14 and 0.4 and blood sugar is noted to be 108. ASSESSMENT: This is a 72-year-old female patient admitted to rehab with a working diagnosis of multiple fractures. The patient has potential to make improvement. We instituted the following multidisciplinary therapies including but not limited to physical, occupational, respiratory, speech, nutritional services, prosthetics and orthotics. Given her complex medical condition and risk for more complications, rehabilitation services cannot be provided at a low level of care such as senior living facility. PLAN: 1. Admit to [facility] for intensive inpatient therapy to include the following disciplines: A. Physical therapy to improve gait, all transfer skills and bed mobility to a modified independent level. B. Occupational therapy to a modified independent level. C. Case management to assist with discharge planning and placement options. D. Nutrition to assist with nutritional needs. E. Rehabilitation nursing to assist in monitoring the patient's underlying medical conditions and to assist with any type of bowel or bladder management. 2. The patient's current medication and medical care will be continued. 3. The patient will be placed on standard fall precautions. 4. I am going to go ahead and try to replace her sodium while we have her here, which is a common finding that we find in people with alcohol use. 5. I am going to follow up in the a.m. We check these levels and follow up appropriately. TRANSINT:[id number] Voice Confirmation ID: [id number] DOCUMENT ID: [id number] ALANA notes whether there has been none or any medical/functional change since admission: - No change since pre-admission screen. HISTORY AND PHYSICAL [id number] CLIFF LINDO attests patient continues to be appropriate for IRF: - Continues to be appropriate. MATT HERNANDES MD at 1854 CC: [id number] DICTATION DATE: 01/05/18 0841 SIMULATION SOFTWARE ENGINEER: 01/05/18 0923 ADM IN [facility] [address] [place] [address]
[~2018-01-04 16:37] MED LIST changes: +ELIQUIS2.5 MG PO; +MEGACE400 MG/10 PO; +MYSOLINE 50 MG50 MG PO; +MYSOLINE250 MG PO; +NORCO 5/325 TAB1 TAB PO; +PAXIL20 MG PO
[2018-01-04] MEDS ORDERED: CALCIUM 250+D T1 TAB PO (16:55)
[2018-01-04 16:56] VITALS: BP 172/71; BMI 17.5
[2018-01-04] MEDS ORDERED: SENNA8.6 MG PO (16:56)
[2018-01-04] MEDS ORDERED: MULTI-DAY VITAM1 TAB PO (16:56)
[2018-01-05 07:29] LABS: BASOPHILS 0.2 % (0-2); EOSINOPHILS 2.3 % (0-7); HEMATOCRIT 27.3 % (36.0-48.0); HEMOGLOBIN 9.5 g/dL (12-16); IMMATURE GRANULOCYTES 1.2 % (0-5); MCH 32.6 pg (26.0-34.0); MCHC 34.8 g/dL (31.0-37.0); MCV 93.8 fL (80.0-100.0); MEAN PLATELET VOLUME 8.6 fL (7.4-10.4); NEUTROPHILS 74.3 % (40-80); RBC 2.91 10x6/uL (4.00-5.40); RDW 16.3 % (11.5-14.5); WBC 12.9 10x3/uL (4.8-10.8)
[2018-01-05 07:35] LABS: PLATELET COUNT 400 10x3/uL (130-400)
[2018-01-05 07:58] LABS: CALC OSMOLALITY 251 mosm/kg (275-300); CALCIUM 8.2 mg/dL (8.5-10.1); CHLORIDE - SERUM 91 mmol/L (98-107); CREATININE - SERUM 0.4 mg/dL (0.6-1.3); GLUCOSE 108 mg/dL (74-106); POTASSIUM - SERUM 4.1 mmol/L (3.5-5.1); SODIUM 124 mmol/L (136-145); UREA NITROGEN 14 mg/dL (7-18); eGFR NON AFRICAN AMERICAN > 90 mL/min (90-120)
[2018-01-05 12:57] VITALS: Ht 165.1 cm; Wt 47.6 kg
[2018-01-05 19:00] VITALS: BP 103/38
[2018-01-06 06:40] LABS: CALCIUM 7.9 mg/dL (8.5-10.1); CHLORIDE - SERUM 93 mmol/L (98-107); CREATININE - SERUM 0.5 mg/dL (0.6-1.3); GLUCOSE 99 mg/dL (74-106); POTASSIUM - SERUM 4.3 mmol/L (3.5-5.1); SODIUM 126 mmol/L (136-145); eGFR NON AFRICAN AMERICAN > 90 mL/min (90-120)
[2018-01-06 06:41] LABS: CALC OSMOLALITY 254 mosm/kg (275-300); UREA NITROGEN 19 mg/dL (7-18)
[2018-01-06 08:22] VITALS: BP 131/61
[2018-01-06 20:15] VITALS: BP 126/55
[2018-01-07 08:00] VITALS: BP 148/60
[2018-01-07 23:20] VITALS: BP 131/75
[2018-01-08 06:21] LABS: BASOPHILS 0.2 % (0-2); EOSINOPHILS 1.4 % (0-7); HEMOGLOBIN 8.6 g/dL (12-16); IMMATURE GRANULOCYTES 1.2 % (0-5); LYMPHOCYTES 11.8 % (15-50); MCH 31.9 pg (26.0-34.0); MCHC 33.1 g/dL (31.0-37.0); MCV 96.3 fL (80.0-100.0); MEAN PLATELET VOLUME 8.5 fL (7.4-10.4); MONOCYTES 12.3 % (2-11); NEUTROPHILS 73.1 % (40-80); RDW 16.6 % (11.5-14.5); WBC 10.4 10x3/uL (4.8-10.8)
[2018-01-08 06:25] LABS: PLATELET COUNT 500 10x3/uL (130-400)
[2018-01-08 06:37] LABS: CALC OSMOLALITY 258 mosm/kg (275-300); CALCIUM 7.9 mg/dL (8.5-10.1); CARBON DIOXIDE 26.6 mmol/L (21.0-32.0); CHLORIDE - SERUM 95 mmol/L (98-107); CREATININE - SERUM 0.5 mg/dL (0.6-1.3); GLUCOSE 102 mg/dL (74-106); POTASSIUM - SERUM 4.4 mmol/L (3.5-5.1); SODIUM 128 mmol/L (136-145); UREA NITROGEN 18 mg/dL (7-18); eGFR NON AFRICAN AMERICAN > 90 mL/min (90-120)
[2018-01-08 07:50] VITALS: BP 160/61
[2018-01-09 01:48] VITALS: BP 128/56
[2018-01-09 07:50] VITALS: BP 144/63
[2018-01-09 19:25] VITALS: BP 143/78
[2018-01-10 06:53] LABS: BASOPHILS 0.2 % (0-2); EOSINOPHILS 1.5 % (0-7); HEMATOCRIT 24.7 % (36.0-48.0); HEMOGLOBIN 8.2 g/dL (12-16); IMMATURE GRANULOCYTES 1.1 % (0-5); LYMPHOCYTES 13.1 % (15-50); MCHC 33.2 g/dL (31.0-37.0); MCV 96.5 fL (80.0-100.0); MEAN PLATELET VOLUME 8.3 fL (7.4-10.4); MONOCYTES 10.8 % (2-11); NEUTROPHILS 73.3 % (40-80); PLATELET COUNT 563 10x3/uL (130-400); RBC 2.56 10x6/uL (4.00-5.40); RDW 16.7 % (11.5-14.5); WBC 10.4 10x3/uL (4.8-10.8)
[2018-01-10 06:58] LABS: CALC OSMOLALITY 257 mosm/kg (275-300); CALCIUM 8.5 mg/dL (8.5-10.1); CARBON DIOXIDE 23.4 mmol/L (21.0-32.0); CHLORIDE - SERUM 95 mmol/L (98-107); CREATININE - SERUM 0.5 mg/dL (0.6-1.3); GLUCOSE 102 mg/dL (74-106); POTASSIUM - SERUM 4.3 mmol/L (3.5-5.1); SODIUM 127 mmol/L (136-145); UREA NITROGEN 21 mg/dL (7-18); eGFR NON AFRICAN AMERICAN > 90 mL/min (90-120)
[2018-01-10 08:38] VITALS: BP 137/59
[2018-01-10 19:00] VITALS: BP 106/41
[2018-01-11 19:45] VITALS: BP 127/52
[2018-01-12 05:59] LABS: BASOPHILS 0.2 % (0-2); EOSINOPHILS 1.8 % (0-7); HEMATOCRIT 24.8 % (36.0-48.0); HEMOGLOBIN 8.2 g/dL (12-16); IMMATURE GRANULOCYTES 0.8 % (0-5); MCHC 33.1 g/dL (31.0-37.0); MCV 96.9 fL (80.0-100.0); MEAN PLATELET VOLUME 8.2 fL (7.4-10.4); MONOCYTES 14.4 % (2-11); NEUTROPHILS 69.8 % (40-80); PLATELET COUNT 537 10x3/uL (130-400); RBC 2.56 10x6/uL (4.00-5.40); RDW 16.7 % (11.5-14.5)
[2018-01-12 06:14] LABS: CALC OSMOLALITY 264 mosm/kg (275-300); CALCIUM 8.6 mg/dL (8.5-10.1); CARBON DIOXIDE 25.3 mmol/L (21.0-32.0); CHLORIDE - SERUM 98 mmol/L (98-107); CREATININE - SERUM 0.5 mg/dL (0.6-1.3); GLUCOSE 103 mg/dL (74-106); POTASSIUM - SERUM 4.2 mmol/L (3.5-5.1); SODIUM 130 mmol/L (136-145); UREA NITROGEN 24 mg/dL (7-18); eGFR NON AFRICAN AMERICAN > 90 mL/min (90-120)
[2018-01-12 07:51] VITALS: BP 153/61
[2018-01-12 22:38] VITALS: BP 134/63
[2018-01-13 08:04] VITALS: BP 127/55
[2018-01-13 11:50] LABS: HEMOGLOBIN 12.1 g/dL (12-16)
[2018-01-13 23:36] VITALS: BP 142/65
[2018-01-14 08:00] VITALS: BP 158/67
[2018-01-14 19:15] VITALS: BP 164/75
[2018-01-15 07:43] LABS: CALC OSMOLALITY 259 mosm/kg (275-300); CALCIUM 7.8 mg/dL (8.5-10.1); CARBON DIOXIDE 20.7 mmol/L (21.0-32.0); CHLORIDE - SERUM 100 mmol/L (98-107); CREATININE - SERUM 0.5 mg/dL (0.6-1.3); GLUCOSE 94 mg/dL (74-106); POTASSIUM - SERUM 3.2 mmol/L (3.5-5.1); SODIUM 130 mmol/L (136-145); UREA NITROGEN 9 mg/dL (7-18); eGFR NON AFRICAN AMERICAN > 90 mL/min (90-120)
[2018-01-15 07:44] LABS: BASOPHILS 0.1 % (0-2); EOSINOPHILS 0.9 % (0-7); HEMATOCRIT 33.1 % (36.0-48.0); HEMOGLOBIN 11.3 g/dL (12-16); IMMATURE GRANULOCYTES 0.3 % (0-5); LYMPHOCYTES 7.4 % (15-50); MCH 31.1 pg (26.0-34.0); MCHC 34.1 g/dL (31.0-37.0); MCV 91.2 fL (80.0-100.0); MEAN PLATELET VOLUME 8.3 fL (7.4-10.4); MONOCYTES 10.4 % (2-11); NEUTROPHILS 80.9 % (40-80); RBC 3.63 10x6/uL (4.00-5.40); RDW 16.9 % (11.5-14.5); WBC 10.9 10x3/uL (4.8-10.8)
[2018-01-15 07:46] LABS: PLATELET COUNT 405 10x3/uL (130-400)
[2018-01-15 19:30] VITALS: BP 152/67
[2018-01-16 08:00] VITALS: BP 160/76
[2018-01-16 19:30] VITALS: BP 141/56
[2018-01-17 07:46] LABS: BASOPHILS 0.1 % (0-2); EOSINOPHILS 1.3 % (0-7); HEMATOCRIT 33.1 % (36.0-48.0); HEMOGLOBIN 11.3 g/dL (12-16); IMMATURE GRANULOCYTES 0.2 % (0-5); LYMPHOCYTES 12.4 % (15-50); MCHC 34.1 g/dL (31.0-37.0); MCV 90.9 fL (80.0-100.0); MEAN PLATELET VOLUME 8.5 fL (7.4-10.4); MONOCYTES 11.1 % (2-11); NEUTROPHILS 74.9 % (40-80); PLATELET COUNT 346 10x3/uL (130-400); RBC 3.64 10x6/uL (4.00-5.40); RDW 16.4 % (11.5-14.5); WBC 8.2 10x3/uL (4.8-10.8)
[2018-01-17 08:01] VITALS: BP 151/70
[2018-01-17 08:03] LABS: CALC OSMOLALITY 262 mosm/kg (275-300); CARBON DIOXIDE 23.2 mmol/L (21.0-32.0); CHLORIDE - SERUM 101 mmol/L (98-107); CREATININE - SERUM 0.4 mg/dL (0.6-1.3); GLUCOSE 90 mg/dL (74-106); POTASSIUM - SERUM 3.2 mmol/L (3.5-5.1); SODIUM 132 mmol/L (136-145); UREA NITROGEN 6 mg/dL (7-18); eGFR NON AFRICAN AMERICAN > 90 mL/min (90-120)
[2018-01-17 19:10] VITALS: BP 169/72
[2018-01-18 08:00] VITALS: BP 158/71
[2018-01-18 19:15] VITALS: BP 142/66
[2018-01-19 06:08] LABS: BASOPHILS 0.3 % (0-2); EOSINOPHILS 1.3 % (0-7); HEMATOCRIT 32.1 % (36.0-48.0); HEMOGLOBIN 10.9 g/dL (12-16); IMMATURE GRANULOCYTES 0.3 % (0-5); MCH 31.1 pg (26.0-34.0); MCV 91.5 fL (80.0-100.0); MONOCYTES 15.3 % (2-11); NEUTROPHILS 65.8 % (40-80); PLATELET COUNT 323 10x3/uL (130-400); RBC 3.51 10x6/uL (4.00-5.40); RDW 16.2 % (11.5-14.5)
[2018-01-19 06:22] LABS: CARBON DIOXIDE 25.6 mmol/L (21.0-32.0); CHLORIDE - SERUM 102 mmol/L (98-107); CREATININE - SERUM 0.5 mg/dL (0.6-1.3); GLUCOSE 99 mg/dL (74-106); SODIUM 134 mmol/L (136-145); eGFR NON AFRICAN AMERICAN > 90 mL/min (90-120)
[2018-01-19 06:31] LABS: CALC OSMOLALITY 266 mosm/kg (275-300); POTASSIUM - SERUM 4.2 mmol/L (3.5-5.1); UREA NITROGEN 10 mg/dL (7-18)
[2018-01-19 08:00] VITALS: BP 162/70
[2018-01-19 19:00] VITALS: BP 138/60
[2018-01-20 08:00] VITALS: BP 145/67
[2018-01-20 22:16] VITALS: BP 131/62
[2018-01-21 08:00] VITALS: BP 152/74
[2018-01-21 19:30] VITALS: BP 145/64
[2018-01-22 06:40] LABS: BASOPHILS 0.4 % (0-2); EOSINOPHILS 2.5 % (0-7); HEMATOCRIT 38.4 % (36.0-48.0); HEMOGLOBIN 12.6 g/dL (12-16); IMMATURE GRANULOCYTES 0.5 % (0-5); LYMPHOCYTES 18.1 % (15-50); MCHC 32.8 g/dL (31.0-37.0); MCV 94.3 fL (80.0-100.0); MEAN PLATELET VOLUME 9.1 fL (7.4-10.4); MONOCYTES 13.5 % (2-11); PLATELET COUNT 312 10x3/uL (130-400); RBC 4.07 10x6/uL (4.00-5.40); RDW 15.9 % (11.5-14.5); WBC 7.7 10x3/uL (4.8-10.8)
[2018-01-22 07:04] LABS: CALC OSMOLALITY 266 mosm/kg (275-300); CARBON DIOXIDE 29.7 mmol/L (21.0-32.0); CHLORIDE - SERUM 95 mmol/L (98-107); CREATININE - SERUM 0.5 mg/dL (0.6-1.3); GLUCOSE 98 mg/dL (74-106); SODIUM 132 mmol/L (136-145); UREA NITROGEN 18 mg/dL (7-18); eGFR NON AFRICAN AMERICAN > 90 mL/min (90-120)
[2018-01-22 11:41] VITALS: BP 151/71
[2018-01-22 19:35] VITALS: BP 136/74
[2018-01-23 08:15] VITALS: BP 147/67
[2018-01-23] MEDS ORDERED: HYDROCODON-ACE1 EAC7 PO (08:46)
== END 2018-01-23 14:01 | disposition home health service (06) | DRG 560 ==
LOC: D.REHAB 16:37
PROVIDERS: Emergency Medicine
DX: S72.011D Unspecified intracapsular fracture of right femur, subsequent encounter for closed fracture with routine healing (principal); E87.1 Hypo-osmolality and hyponatremia; D62 Acute posthemorrhagic anemia; S42.291D Other displaced fracture of upper end of right humerus, subsequent encounter for fracture with routine healing; M97.31XD Periprosthetic fracture around internal prosthetic right shoulder joint, subsequent encounter; Z96.611 Presence of right artificial shoulder joint; W19.XXXD Unspecified fall, subsequent encounter; G89.18 Other acute postprocedural pain; R10.9 Unspecified abdominal pain; F17.200 Nicotine dependence, unspecified, uncomplicated; K59.00 Constipation, unspecified; J44.9 Chronic obstructive pulmonary disease, unspecified; Z47.1 Aftercare following joint replacement surgery

== ENCOUNTER → 2018-08-03 11:15 | Outpatient (CLI) | payer MEDICARE ==
[2018-01-05 12:57] VITALS: BMI 17.4
[~2018-08-03 11:15] MED LIST changes: +CALCIUM 250+D T1 TAB PO; +HYDROCODON-ACE1 EAC7 PO; +SENNA8.6 MG PO; +VALIUM 2 MG TAB2 MG PO
== END | disposition home or self-care (01) ==
LOC: D.CT 11:15
PROVIDERS: ATTEND Family Medicine
DX: R91.1 Solitary pulmonary nodule (principal)

== ENCOUNTER 2018-08-03 15:27 | Inpatient (IN) | payer MEDICARE ==
[~2018-08-03] VITALS: Ht 165.1 cm; Wt 45.4 kg
[~2018-08-03 15:27] MED LIST changes: -VALIUM 2 MG TAB2 MG PO
[2018-08-03 16:53] LABS: BASOPHILS 0.4 % (0-2); EOSINOPHILS 1.3 % (0-7); HEMOGLOBIN 12.6 g/dL (12-16); IMMATURE GRANULOCYTES 0.3 % (0-5); LYMPHOCYTES 12.5 % (15-50); MCH 32.1 pg (26.0-34.0); MCHC 34.1 g/dL (31.0-37.0); MCV 94.4 fL (80.0-100.0); MEAN PLATELET VOLUME 9.2 fL (7.4-10.4); MONOCYTES 6.3 % (2-11); NEUTROPHILS 79.2 % (40-80); RBC 3.92 10x6/uL (4.00-5.40); RDW 13.2 % (11.5-14.5); WBC 7.4 10x3/uL (4.8-10.8)
[2018-08-03 17:00] LABS: PLATELET COUNT 208 10x3/uL (130-400)
[2018-08-03 17:08] LABS: ALBUMIN 3.6 g/dL (3.4-5.0); ANION GAP 14.7 mmol/L (8-16); BILIRUBIN - TOTAL 0.35 mg/dL (0.2-1.3); CALCIUM 8.5 mg/dL (8.5-10.1); CARBON DIOXIDE 24.8 mmol/L (21.0-32.0); CREATININE - SERUM 0.9 mg/dL (0.6-1.3); POTASSIUM - SERUM 4.5 mmol/L (3.5-5.1); PROTEIN - SERUM 7.6 g/dL (6.4-8.2)
[2018-08-03 18:26] LABS: APPEARANCE CLEAR (CLEAR); COLOR STRAW (YELLOW)
[2018-08-03 18:27] LABS: BILIRUBIN NEGATIVE (NEGATIVE); GLUCOSE NEGATIVE (NEGATIVE); KETONE NEGATIVE (NEGATIVE); NITRITE NEGATIVE (NEGATIVE); PROTEIN NEGATIVE (NEGATIVE); UROBILINOGEN NORMAL (NORMAL)
[2018-08-03 19:22] LABS: CREATINE KINASE 65 UL (21-215); TROPONIN-I < 0.017 ng/mL (0.000-0.060)
[2018-08-03 20:00] VITALS: BP 103/70
--- NOTE | 2018-08-03 20:05 | NUR ---
REPORT RECIEVED FROM EIELEN IN ER.
--- NOTE | 2018-08-03 20:15 | NUR ---
ADMIT TO ROOM 2117 FROM ER. IV LR AT 75ML/HR INFUSING TO LFA. TELEMETRY STARTED. 92/SR. PT ALERT/ORIENTED. ADMISSION HISTORY AND ASSESSMENT COMPLETED. HOME MEDS REVIEWED/UPDATED. CALL LIGHT IN REACH. PT TEACHING ON SAFETY, USING CALL LIGHT FOR ASSISTANCE TO BATHROOM. PLAN OF CARE REVIEWED AND INITIATED.
--- NOTE | 2018-08-03 22:00 | NUR ---
PT GIVEN A SANDWICH TRAY AND DRINKS. WILL ORDER SOFT DIET FOR AM DUE TO HISTORY OF SWALLOWING PROBLEMS.
[2018-08-04] VITALS (7 sets, daily range): BP systolic 107–144; BP diastolic 55–66; Ht 165.1 cm; Wt 45.4 kg
[2018-08-04 01:31] LABS: BASOPHILS 0.5 % (0-2); EOSINOPHILS 1.1 % (0-7); HEMATOCRIT 29.9 % (36.0-48.0); HEMOGLOBIN 10.5 g/dL (12-16); IMMATURE GRANULOCYTES 0.2 % (0-5); MCH 32.8 pg (26.0-34.0); MCHC 35.1 g/dL (31.0-37.0); MCV 93.4 fL (80.0-100.0); NEUTROPHILS 67.2 % (40-80); PLATELET COUNT 189 10x3/uL (130-400); RDW 13.2 % (11.5-14.5); WBC 6.3 10x3/uL (4.8-10.8)
--- NOTE | 2018-08-04 01:31 | NUR ---
PT RESTING IN BED WITH NO DISTRESS. MONITOR AND CPOC.
[2018-08-04] MEDS ORDERED: VALIUM 2 MG TAB2 MG PO (01:37)
[2018-08-04 01:58] LABS: CKMB 0.9 U/L (0.0-3.6); CREATINE KINASE 44 UL (21-215)
[2018-08-04 01:59] LABS: TROPONIN-I < 0.017 ng/mL (0.000-0.060)
[2018-08-04 07:56] LABS: CKMB 0.9 U/L (0.0-3.6); CREATINE KINASE 40 UL (21-215); TROPONIN-I < 0.017 ng/mL (0.000-0.060)
--- NOTE | 2018-08-04 07:58 | NUR ---
REFUSES SCDS AT THIS TIME.
--- NOTE | 2018-08-04 09:48 | NUR ---
TELEMETRY SR. RESTS IN BED W/O C/O VOICED. CALL LIGHT IN REACH. WILL MONITOR.
--- NOTE | 2018-08-04 12:08 | NUR ---
B/P LYING 109/55, SITTING 133/58, AND STANDING 130/58.
--- NOTE | 2018-08-04 14:36 | NUR ---
IV AND TELEMETRY DCD. DC PLANS GIVEN. UNDERSTANDING VOICED. ESCORTED TO CAR BY W/C.
--- NOTE | 2018-08-06 08:27 | MORECARE ---
CASE MANAGEMENT DISCHARGE SUMMARY PATIENT: CLIFF LINDO UNIT: [id number] ADM DATE: 08/03/18 AGE: 72 : 45 SEX: F ROOM/BED: D.7 AUTHOR: HEATHER CRYSTAL PHYSICIAN: REFERRING PHYSICIAN: ANAHI HSIEH DO DATE OF SERVICE: 08/06/18 Discharge Plan Patient Name: CLIFF LINDO Facility: [facility]:[place] : 1945 Planned Disposition: Home Anticipated Discharge Date: 08/04/18 Discharge Date: 08/04/2018 Expected LOS: 1 Initial Reviewer: [email or web address] Initial Review Date: 08/06/2018 Generated: 08/06/18 9:27 am Patient Name: CLIFF LINDO Page [phone] at 0827 All edits/amendments must be made on the electronic document DICTATION DATE: 08/06/18825 COURT RECORDING MONITOR: TED 08/06/18825 RPT#: [id number] DC DATE:08/04/18 STATUS: DIS IN [facility] [address] [place] [address] END OF REPORT
== END 2018-08-04 14:37 | disposition home or self-care (01) | DRG 316 ==
LOC: D.ER 15:27 → D.M2 18:58
PROVIDERS: Emergency Medicine; ADMIT Family Medicine; ATTEND Family Medicine
DX: I95.9 Hypotension, unspecified (principal); E78.5 Hyperlipidemia, unspecified; J44.9 Chronic obstructive pulmonary disease, unspecified; F41.9 Anxiety disorder, unspecified; F32.9 Major depressive disorder, single episode, unspecified; F17.210 Nicotine dependence, cigarettes, uncomplicated; R42 Dizziness and giddiness

== ENCOUNTER → 2018-09-28 09:21 | Outpatient (CLI) | payer MEDICARE ==
[2018-08-04 12:43] VITALS: BMI 16.6
[~2018-09-28 09:21] MED LIST changes: +OMNICEF300 MG PO; +TESSALON PERLE100 MG PO; +VALIUM 2 MG TAB2 MG PO
== END | disposition home or self-care (01) ==
LOC: D.RT 09:21
PROVIDERS: ATTEND Internal Medicine Pulmonary Disease
DX: R06.09 Other forms of dyspnea (principal)

== ENCOUNTER 2018-10-02 05:27 | Outpatient (CLI) | payer MEDICARE ==
[~2018-10-02] VITALS: Ht 165.1 cm; Wt 44.9 kg
[~2018-10-02 05:27] MED LIST changes: -OMNICEF300 MG PO; -TESSALON PERLE100 MG PO
[2018-10-02] MEDS ORDERED: TESSALON PERLE100 MG PO (06:33)
[2018-10-02] MEDS ORDERED: OMNICEF300 MG PO (06:33)
[2018-10-02 06:37] LABS: BASOPHILS 0.8 % (0-2); HEMATOCRIT 38.2 % (36.0-48.0); HEMOGLOBIN 13.1 g/dL (12-16); IMMATURE GRANULOCYTES 0.2 % (0-5); LYMPHOCYTES 28.4 % (15-50); MCH 32.8 pg (26.0-34.0); MCHC 34.3 g/dL (31.0-37.0); MCV 95.5 fL (80.0-100.0); MEAN PLATELET VOLUME 9.9 fL (7.4-10.4); MONOCYTES 9.1 % (2-11); NEUTROPHILS 58.5 % (40-80); PLATELET COUNT 178 10x3/uL (130-400)
[2018-10-02 06:59] VITALS: BP 126/62; Ht 165.1 cm; Wt 44.9 kg
[2018-10-02 07:04] LABS: APTT 30.3 SECONDS (22.8-39.4); INR 1.1 (0.85-1.17); PROTIME 13.7 SECONDS (11.6-15.0)
--- NOTE | 2018-10-02 10:27 | NUR ---
NO DC ORDERS WERE GIVEN. PAGED DR. GARCIA AND HE CALLED. I INFORMED HIM OF LACK OF DC ORDERS. HE SAID SHE CAN GO IF SHE'S NOT COUGHING UP BLOOD AND IF HER O2 SAT IS WNL AND IF SHE CAN DRINK LIQUIDS W/O TROUBLE. WILL CONTINUE TO MONITOR.
--- NOTE | 2018-10-02 10:40 | NUR ---
DC INSTRUCTIONS GIVEN TO PT/FAMILY. STATE UNDERSTANDING. DC'D IV CATH FULLY INTACT.
--- NOTE | 2018-10-02 10:45 | NUR ---
PT LEFT UNIT VIA WC AT 1040
== END 2018-10-02 10:45 | disposition home or self-care (01) ==
LOC: D.OPS 05:27
PROVIDERS: ATTEND Internal Medicine Pulmonary Disease
DX: J18.9 Pneumonia, unspecified organism (principal); Z01.812 Encounter for preprocedural laboratory examination

== ENCOUNTER 2019-07-23 09:44 | Emergency (ER) | payer OTHER ==
[~2019-07-23] VITALS: Ht 165.1 cm; Wt 49.5 kg
[~2019-07-23 09:44] MED LIST changes: +OMNICEF300 MG PO; +TESSALON PERLE100 MG PO
[2019-07-23 09:45] VITALS: Ht 165.1 cm; Wt 49.5 kg
[2019-07-23] MEDS ORDERED: VALIUM5 MG PO (09:54)
[2019-07-23] MEDS ORDERED: ZOLOFT25 MG PO (09:54)
[2019-07-23] MEDS ORDERED: MOBIC7.5 MG PO (10:59)
[2019-07-23] MEDS ORDERED: TYLENOL ARTHRI650 MG PO (10:59)
[2019-07-23 11:24] VITALS: BP 180/82
[2019-07-25] MEDS ORDERED: HYDROCODON-ACE1 EAC7 PO (16:54)
== END 2019-07-23 11:24 | disposition home or self-care (01) ==
LOC: D.ER 09:44
DX: F10.10 Alcohol abuse, uncomplicated (principal); Y90.9 Presence of alcohol in blood, level not specified; F43.21 Adjustment disorder with depressed mood; W19.XXXA Unspecified fall, initial encounter; Y93.9 Activity, unspecified; Y92.9 Unspecified place or not applicable; M79.601 Pain in right arm

== ENCOUNTER 2019-07-26 11:32 | Day surgery (SDC) | payer OTHER ==
[~2019-07-26] VITALS: Ht 162.6 cm; Wt 49.0 kg
[~2019-07-26 11:32] MED LIST changes: +MOBIC7.5 MG PO; +TYLENOL ARTHRI650 MG PO; +VALIUM5 MG PO; +ZOLOFT25 MG PO
[2019-07-26 12:06] LABS: BASOPHILS 0.3 % (0-2); EOSINOPHILS 2.2 % (0-7); HEMATOCRIT 34.7 % (36.0-48.0); HEMOGLOBIN 11.4 g/dL (12-16); IMMATURE GRANULOCYTES 0.3 % (0-5); LYMPHOCYTES 23.3 % (15-50); MCH 33.7 pg (26.0-34.0); MCHC 32.9 g/dL (31.0-37.0); MCV 102.7 fL (80.0-100.0); MEAN PLATELET VOLUME 8.7 fL (7.4-10.4); MONOCYTES 9.2 % (2-11); NEUTROPHILS 64.7 % (40-80); PLATELET COUNT 195 10x3/uL (130-400); RBC 3.38 10x6/uL (4.00-5.40); RDW 13.5 % (11.5-14.5)
[2019-07-26 13:35] VITALS: BP 129/62; Ht 162.6 cm; Wt 49.0 kg
[2019-07-26 18:36] VITALS: BP 102/63
--- NOTE | 2019-07-26 20:30 | NUR ---
PT HAS VOIDED AND KEEP DOWN FLUIDS AND SNACK WITHOUT NAUSEA. HER IV SITE WAS DC'D AND A DRESSING APPLIED. AFTER GETTING DRESSED SHE WAS TAKEN TO A PRIVATE CAR OF A FRIEND AND GIVEN INSTRUCTIONS TO CALL DR BURRIS IN THE AM AND TAKE THE PAIN MED THAT HE GAVE HER A SCRIP FOR YESTERDAY AT HIS OFFICE. SHE KNOWS TO ICE AND ELEVATE IT.
--- NOTE | 2019-07-27 09:29 | OP ---
PATIENT NAME: CLIFF LINDO MEDICAL RECORD: [id number] :45 LOCATION:[facility] ADMISSION DATE: SURGEON: DOE BURRIS DO DATE OF OPERATION: 07/26/2019 PROCEDURE PERFORMED: Right distal radius open reduction internal fixation. PREOPERATIVE DIAGNOSIS: Displaced right intra-articular distal radius fracture. POSTOPERATIVE DIAGNOSIS: Displaced right intra-articular distal radius fracture. INDICATIONS: Ms. Lindo is a 73-year-old female who fell and sustained a fracture to her right distal radius. She was x-rayed and she was seen in my clinic. She was informed that she probably get it fixed to the intra-articular component and more that it was an apex volar with more than 10 degrees of dorsal tilt. She did have good function, and to avoid further pain, she would benefit from open reduction internal fixation. She is okay with that and is aware of the risks including infection, bleeding, damage to the median nerve, other nerves in the area, vessels and malunion, nonunion, need for further surgery, and she signed the consent. SURGEON: Doe Burris DO DESCRIPTION OF PROCEDURE: The patient was taken to the operative suite, laid in supine position and after given a block by anesthesia in the preoperative area and general anesthetic LMA was placed. The right upper extremity was then prepped and draped in sterile fashion. Timeout was performed. Everyone was in agreement with correct side, site, patient and procedure. I exsanguinated the right upper extremity with Esmarch and tourniquet was inflated to 250 mmHg, it was up for 21 minutes. I then began by making an incision over the flexor carpi radialis tendon. Careful dissection made down to the tendon. The tendon was taken ulnarly and then the dorsal aspect of the tendon sheath was cut and careful dissection was made down to the pronator quadratus. This was cleaned off the distal radius. Reduction was then made in the distal radius. The plate was then placed on an Acumed narrow plate, and once it was in adequate position, two K-wires held it and I put cortical screw in the shaft first and then 4 locking screws distally, 3 distally and the one in the radial styloid. The 2 locking screws then placed in the shaft and then the tourniquet was let down. Any bleeding was coagulated with a pickup and Bovie. I then irrigated and closed the skin with 2-0 Vicryl in inverted interrupted fashion and Krishna Delacruz assisted with this as well using 3-0 Vicryl in interrupted fashion and then Prineo glue placed on the skin. She was then dressed with Adaptic, 4 x 4s, cast padding and a volar splint, secured with an Gabriel wrap was placed on the patient. She was then awakened and taken to recovery in stable condition. BLOOD LOSS: Minimal. COMPLICATIONS: None. TRANSINT:[id number] Voice Confirmation ID: [id number] DOCUMENT ID: [id number] OPERATIVE REPORT [id number] CLIFF LINDO MICHAEL D, DO at 0929 CC: [id number] DICTATION DATE: 07/26/191816 WOOD PATTERNMAKER APPRENTICE: 07/27/19 0235 [facility] 07/26/[id number] [place] [address]
== END 2019-07-26 20:30 | disposition home or self-care (01) ==
LOC: D.OPS 11:32 → D.MS 18:20 → D.OPS 20:30
PROVIDERS: Anesthesiology; ATTEND Orthopaedic Surgery
DX: S52.571A Other intraarticular fracture of lower end of right radius, initial encounter for closed fracture (principal)

== ENCOUNTER → 2019-09-20 10:04 | Outpatient (CLI) | payer OTHER ==
[2019-07-26 13:35] VITALS: BMI 18.5
== END | disposition home or self-care (01) ==
LOC: D.NM 10:04
PROVIDERS: ATTEND Nurse Practitioner Family
DX: Z96.611 Presence of right artificial shoulder joint (principal)

== ENCOUNTER 2019-10-01 20:32 | Emergency (ER) | payer OTHER ==
[~2019-10-01] VITALS: Ht 162.6 cm; Wt 49.5 kg
[2019-10-01 20:39] VITALS: Ht 162.6 cm; Wt 49.5 kg
[2019-10-01 21:45] LABS: APTT 31.1 SECONDS (22.8-39.4); INR 0.97 (0.85-1.17); PROTIME 12.8 SECONDS (11.6-15.0)
[2019-10-01 21:51] LABS: CALC OSMOLALITY 250 mosm/kg (275-300); CALCIUM 7.8 mg/dL (8.5-10.1); CARBON DIOXIDE 28.5 mmol/L (21.0-32.0); CHLORIDE - SERUM 89 mmol/L (98-107); CREATININE - SERUM 0.7 mg/dL (0.6-1.3); GLUCOSE 92 mg/dL (74-106); SODIUM 126 mmol/L (136-145); UREA NITROGEN 8 mg/dL (7-18); eGFR NON AFRICAN AMERICAN 87 mL/min (90-120)
[2019-10-01 21:55] LABS: ALBUMIN 3.6 g/dL (3.4-5.0); ALKALINE PHOSPHATASE 117 U/L (30-120); ALT (SGPT) 27 U/L (10-68); BILIRUBIN - TOTAL 0.21 mg/dL (0.2-1.3); PROTEIN - SERUM 7.1 g/dL (6.4-8.2)
[2019-10-01 21:57] LABS: BILIRUBIN NEGATIVE (NEGATIVE); GLUCOSE NEGATIVE (NEGATIVE); KETONE NEGATIVE (NEGATIVE); NITRITE NEGATIVE (NEGATIVE); UROBILINOGEN NORMAL (NORMAL)
[2019-10-01 21:58] LABS: BASOPHILS 0.1 % (0-2); EOSINOPHILS 1.1 % (0-7); HEMATOCRIT 34.1 % (36.0-48.0); HEMOGLOBIN 11.8 g/dL (12-16); IMMATURE GRANULOCYTES 0.3 % (0-5); LYMPHOCYTES 20.2 % (15-50); MCH 33.2 pg (26.0-34.0); MCHC 34.6 g/dL (31.0-37.0); MCV 96.1 fL (80.0-100.0); MEAN PLATELET VOLUME 8.4 fL (7.4-10.4); NEUTROPHILS 69.3 % (40-80); PLATELET COUNT 163 10x3/uL (130-400); RBC 3.55 10x6/uL (4.00-5.40); RDW 12.8 % (11.5-14.5); WBC 7.1 10x3/uL (4.8-10.8)
[2019-10-02 00:02] VITALS: BP 165/74
== END 2019-10-02 00:03 | disposition home or self-care (01) ==
LOC: D.ER 20:32
PROVIDERS: Family Medicine
DX: S42.002A Fracture of unspecified part of left clavicle, initial encounter for closed fracture (principal); D64.9 Anemia, unspecified; E83.51 Hypocalcemia; E87.1 Hypo-osmolality and hyponatremia; R91.8 Other nonspecific abnormal finding of lung field; S20.219A Contusion of unspecified front wall of thorax, initial encounter; W19.XXXA Unspecified fall, initial encounter; Y93.9 Activity, unspecified; Y92.9 Unspecified place or not applicable; R07.9 Chest pain, unspecified; M25.512 Pain in left shoulder

== ENCOUNTER 2019-10-11 18:59 | Inpatient (IN) | payer OTHER ==
[~2019-10-11] VITALS: Ht 162.6 cm; Wt 47.7 kg
[2019-10-11 20:15] LABS: BASOPHILS 0.7 % (0-2); EOSINOPHILS 1.3 % (0-7); HEMATOCRIT 33.2 % (36.0-48.0); HEMOGLOBIN 11.7 g/dL (12-16); IMMATURE GRANULOCYTES 0.3 % (0-5); MCH 33.8 pg (26.0-34.0); MCHC 35.2 g/dL (31.0-37.0); MONOCYTES 8.2 % (2-11); NEUTROPHILS 67.5 % (40-80); RBC 3.46 10x6/uL (4.00-5.40); RDW 12.9 % (11.5-14.5); WBC 7.4 10x3/uL (4.8-10.8)
[2019-10-11 20:20] LABS: GLUCOSE NEGATIVE (NEGATIVE); NITRITE NEGATIVE (NEGATIVE)
[2019-10-11 20:21] LABS: BILIRUBIN NEGATIVE (NEGATIVE); EPITHELIAL CELLS 0-5 /hpf (0-5); KETONE NEGATIVE (NEGATIVE); RED CELLS - URINE 0-5 /hpf (0-5); UROBILINOGEN NORMAL (NORMAL); WHITE CELLS - URINE 0-5 /hpf (NEGATIVE)
[2019-10-11 20:22] LABS: BACTERIA MANY /hpf (NEGATIVE); PLATELET COUNT 310 10x3/uL (130-400)
[2019-10-11 20:26] LABS: CALC OSMOLALITY 242 mosm/kg (275-300); CALCIUM 8.6 mg/dL (8.5-10.1); CARBON DIOXIDE 20.8 mmol/L (21.0-32.0); CHLORIDE - SERUM 88 mmol/L (98-107); CREATININE - SERUM 0.8 mg/dL (0.6-1.3); GLUCOSE 80 mg/dL (74-106); POTASSIUM - SERUM 3.9 mmol/L (3.5-5.1); SODIUM 122 mmol/L (136-145); UREA NITROGEN 8 mg/dL (7-18); eGFR NON AFRICAN AMERICAN 74 mL/min (90-120)
[2019-10-11 20:37] LABS: APTT 32.8 SECONDS (22.8-39.4); INR 1.01 (0.85-1.17); PROTIME 13.2 SECONDS (11.6-15.0)
[2019-10-11 20:42] LABS: ALBUMIN 3.7 g/dL (3.4-5.0); ALKALINE PHOSPHATASE 137 U/L (30-120); ALT (SGPT) 22 U/L (10-68); BILIRUBIN - TOTAL 0.25 mg/dL (0.2-1.3); CREATINE KINASE 113 UL (21-215); MAGNESIUM - SERUM 1.6 mg/dL (1.8-2.4); PROTEIN - SERUM 7.3 g/dL (6.4-8.2); TROPONIN-I < 0.017 ng/mL (0.000-0.060)
--- NOTE | 2019-10-11 22:44 | NUR ---
BANANA BAG SENT TO FLOOR WITH PATIENT
[2019-10-11 22:54] VITALS: BP 117/63; Ht 162.6 cm; Wt 47.7 kg
[2019-10-12 04:00] VITALS: BP 116/50
--- NOTE | 2019-10-12 04:44 | NUR ---
ASSESSED AT THE TIME OF ADMISSION. SHE IS ALERT AND ORIENTED, ABLE TO VERBALIZE NEEDS. VERY TIRED WHEN SHE ARRIVED AND AFTER DOING THE ADMIT PAPERORK SHE FELL ASLEEP. SHE IS GETTING UP TO THE BATHROOM TO VOID WITH MINIMAL ASSIST BUT SHE IS CALLING FOR ASSIST.WE STRAIGHTENED THE SLING TO HER LEFT ARM AND IT REMAINS IN PLACE WHILE SHE IS IN BED. NO NEEDS IDENTIFIED.
[2019-10-12 06:50] LABS: BASOPHILS 0.6 % (0-2); EOSINOPHILS 1.1 % (0-7); HEMOGLOBIN 9.8 g/dL (12-16); IMMATURE GRANULOCYTES 0.3 % (0-5); MCH 32.9 pg (26.0-34.0); MCHC 33.8 g/dL (31.0-37.0); MCV 97.3 fL (80.0-100.0); MEAN PLATELET VOLUME 8.3 fL (7.4-10.4); MONOCYTES 13.1 % (2-11); NEUTROPHILS 65.9 % (40-80); PLATELET COUNT 336 10x3/uL (130-400); RBC 2.98 10x6/uL (4.00-5.40); RDW 13.2 % (11.5-14.5); WBC 6.4 10x3/uL (4.8-10.8)
--- NOTE | 2019-10-12 08:21 | NUR ---
UP TO BR, ALERT AND O, NS INFUSING, NO DISTRESS NOTED, CONT TO MONITOR
[2019-10-12 09:39] VITALS: BP 135/67
[2019-10-12 09:42] LABS: ALBUMIN 3.1 g/dL (3.4-5.0); ALKALINE PHOSPHATASE 115 U/L (30-120); ALT (SGPT) 22 U/L (10-68); BILIRUBIN - TOTAL 0.13 mg/dL (0.2-1.3); CALC OSMOLALITY 256 mosm/kg (275-300); CARBON DIOXIDE 17.3 mmol/L (21.0-32.0); CHLORIDE - SERUM 97 mmol/L (98-107); CKMB 1.4 U/L (0.0-3.6); CREATINE KINASE 92 UL (21-215); CREATININE - SERUM 0.7 mg/dL (0.6-1.3); POTASSIUM - SERUM 3.9 mmol/L (3.5-5.1); PROTEIN - SERUM 6.1 g/dL (6.4-8.2); SODIUM 130 mmol/L (136-145); TROPONIN-I < 0.017 ng/mL (0.000-0.060); UREA NITROGEN 8 mg/dL (7-18); eGFR NON AFRICAN AMERICAN 87 mL/min (90-120)
[2019-10-12 09:45] LABS: MAGNESIUM - SERUM 2.3 mg/dL (1.8-2.4)
[2019-10-12 09:51] LABS: GLUCOSE 68 mg/dL (74-106)
--- NOTE | 2019-10-12 10:40 | NUR ---
UP IN CHAIR AFTER WALKING ALEXANDER WITH PT
[2019-10-12 12:12] VITALS: BP 132/60
[2019-10-12] MEDS ORDERED: FOLIC ACID1 MG PO (13:59)
[2019-10-12] MEDS ORDERED: MULTI-DAY VITAM1 TAB PO (13:59)
[2019-10-12] MEDS ORDERED: NICODERM CQ1 EAC3 TRANSDERM (13:59)
[2019-10-12] MEDS ORDERED: VITAMIN B-1100 M1 PO (13:59)
--- NOTE | 2019-10-12 15:47 | NUR ---
TOBACCO QUITLINE FORM COMPLETED AND FAXED.
--- NOTE | 2019-10-12 16:34 | NUR ---
REVIEWED D/C PAPERS, IV REMOVED, TIP INTACT, AWAITING ON RIDE HOME
--- NOTE | 2019-10-12 17:00 | NUR ---
TAKEN FROM HOSPITAL PER W/C
== END 2019-10-12 17:00 | disposition home or self-care (01) | DRG 897 ==
LOC: D.ER 18:59 → D.MS 21:49
PROVIDERS: Family Medicine; ADMIT Family Medicine Adult Medicine; ATTEND Family Medicine Adult Medicine
DX: F10.129 Alcohol abuse with intoxication, unspecified (principal); E87.1 Hypo-osmolality and hyponatremia; E83.42 Hypomagnesemia; D64.9 Anemia, unspecified; F41.8 Other specified anxiety disorders; R91.8 Other nonspecific abnormal finding of lung field; W19.XXXA Unspecified fall, initial encounter

== ENCOUNTER 2019-10-23 17:01 | Inpatient (IN) | payer OTHER ==
[~2019-10-23] VITALS: Ht 162.6 cm; Wt 47.2 kg
[~2019-10-23 17:01] MED LIST changes: +FOLIC ACID1 MG PO; +NICODERM CQ1 EAC3 TRANSDERM; +VITAMIN B-1100 M1 PO
[2019-10-23 18:41] LABS: HEMATOCRIT 34.5 % (36.0-48.0); HEMOGLOBIN 11.3 g/dL (12-16); LYMPHOCYTES 13.9 % (15-50); MCH 32.9 pg (26.0-34.0); MCHC 32.8 g/dL (31.0-37.0); MCV 100.6 fL (80.0-100.0); MEAN PLATELET VOLUME 8.3 fL (7.4-10.4); NEUTROPHILS 79.3 % (40-80); RBC 3.43 10x6/uL (4.00-5.40); WBC 9.7 10x3/uL (4.8-10.8)
[2019-10-23 18:47] LABS: PLATELET COUNT 237 10x3/uL (130-400)
[2019-10-23 18:51] VITALS: BP 118/49
[2019-10-23 18:52] LABS: APTT 30.1 SECONDS (22.8-39.4); INR 1.02 (0.85-1.17); PROTIME 13.3 SECONDS (11.6-15.0)
[2019-10-23 18:53] LABS: CALCIUM 8.5 mg/dL (8.5-10.1); CARBON DIOXIDE 22.7 mmol/L (21.0-32.0); CREATININE - SERUM 0.9 mg/dL (0.6-1.3); POTASSIUM - SERUM 3.7 mmol/L (3.5-5.1)
[2019-10-23 18:59] LABS: ALBUMIN 3.7 g/dL (3.4-5.0); BILIRUBIN - TOTAL 0.32 mg/dL (0.2-1.3); MAGNESIUM - SERUM 1.7 mg/dL (1.8-2.4); PROTEIN - SERUM 7.3 g/dL (6.4-8.2)
--- NOTE | 2019-10-23 20:35 | NUR ---
PT PLACED IN [place], 2L NC O2 APPLIED. BP IS 74/35. ISAI HERNANDEZ ON UNIT, NOTIFIED OF PT'S BP.
--- NOTE | 2019-10-23 20:49 | NUR ---
VERBAL ORDER ISAI HERNANDEZ FOR 500ML NS BOLUS AT THIS TIME.
--- NOTE | 2019-10-23 20:55 | NUR ---
PT NO LONGER IN [place] POSITIONING.
--- NOTE | 2019-10-23 21:25 | NUR ---
LATE ENTRY, STOP TIME BANANA BAG 2124. STILL INFUSING ON TRANSFER TO FLOOR. APPROX 507 ML INFUSED.
--- NOTE | 2019-10-23 22:00 | NUR ---
ADMITTED TO ROOM FROM ER ALERT AND ORIENTIATED, C/O SEVER PAIN TO LEFT HIP WITH MOVEMNET, HAS SLING TO LEFT ARM FROM PREVIOUS FALL, SEE ASSESSMENT, CALL LIGHT IN REACH
[2019-10-23 22:12] VITALS: BP 143/62; BMI 17.9
--- NOTE | 2019-10-23 23:39 | NUR ---
LINDSEY CATH PLACED TOLERATED WELL, RETURN OF 350CC CLEAR YELLOW URINE
[2019-10-24] VITALS (13 sets, daily range): BP systolic 111–157; BP diastolic 51–65; Ht 162.6 cm; Wt 47.2 kg
[2019-10-24 03:15] LABS: UDS - AMPHET NEGATIVE QUAL (NEGATIVE); UDS - BARB POSITIVE QUAL (NEGATIVE); UDS - BENZO POSITIVE QUAL (NEGATIVE); UDS - COCAINE NEGATIVE QUAL (NEGATIVE); UDS - OPIATE POSITIVE QUAL (NEGATIVE); UDS - PCP NEGATIVE QUAL (NEGATIVE); UDS - THC POSITIVE QUAL (NEGATIVE)
[2019-10-24 03:20] LABS: BILIRUBIN NEGATIVE (NEGATIVE); KETONE SMALL mg/dL (NEGATIVE); NITRITE NEGATIVE (NEGATIVE); UROBILINOGEN NORMAL (NORMAL)
[2019-10-24 03:22] LABS: BACTERIA FEW /hpf (NONE SEEN); EPITHELIAL CELLS 0-5 /hpf (0-5); WHITE CELLS - URINE 0-5 /hpf (0-5)
[2019-10-24 07:52] LABS: BASOPHILS 0.2 % (0-2); EOSINOPHILS 0.6 % (0-7); HEMATOCRIT 27.6 % (36.0-48.0); IMMATURE GRANULOCYTES 0.7 % (0-5); LYMPHOCYTES 7.2 % (15-50); MCH 32.8 pg (26.0-34.0); MCHC 32.6 g/dL (31.0-37.0); MCV 100.7 fL (80.0-100.0); MEAN PLATELET VOLUME 8.9 fL (7.4-10.4); MONOCYTES 10.6 % (2-11); NEUTROPHILS 80.7 % (40-80); PLATELET COUNT 191 10x3/uL (130-400); RDW 13.5 % (11.5-14.5)
[2019-10-24 07:53] LABS: RBC 2.74 10x6/uL (4.00-5.40)
[2019-10-24 08:02] LABS: ALKALINE PHOSPHATASE 102 U/L (30-120); ALT (SGPT) 22 U/L (10-68); BILIRUBIN - TOTAL 0.47 mg/dL (0.2-1.3); CALCIUM 7.4 mg/dL (8.5-10.1); CARBON DIOXIDE 19.6 mmol/L (21.0-32.0); CHLORIDE - SERUM 101 mmol/L (98-107); CREATININE - SERUM 0.7 mg/dL (0.6-1.3); PHOSPHOROUS 3.9 mg/dL (2.5-4.9); PROTEIN - SERUM 5.8 g/dL (6.4-8.2); SODIUM 132 mmol/L (136-145); UREA NITROGEN 11 mg/dL (7-18); eGFR NON AFRICAN AMERICAN 87 mL/min (90-120)
[2019-10-24 08:04] LABS: CALC OSMOLALITY 261 mosm/kg (275-300); GLUCOSE 59 mg/dL (74-106); MAGNESIUM - SERUM 2.2 mg/dL (1.8-2.4); POTASSIUM - SERUM 4.4 mmol/L (3.5-5.1)
--- NOTE | 2019-10-24 08:18 | NUR ---
PT ALERT X 4. BREATH SOUNDS CLEAR BILAT, 2L O2 PER NC. IV TO RIGHT FOREARM PATENT, DRESSING CDI. LINDSEY IN PLACE. PREOP MEDICATIONS GIVEN PER ORDERS. BED LOW, CALL LIGHT IN REACH. NO OTHER NEEDS AT THIS TIME.
--- NOTE | 2019-10-24 09:42 | NUR ---
Rehab Note- Acute Inpatient Rehab prescreen order received. THe patient has scheduled surgery for today. She has [employer] insurance an will require a PreAuth prior to an acute inpatient rehab stay- will need both PT & OT Evals for PreAuth process. Will follow at this time. Thank you for this referral! Dede Cardona RN Clinical Liaison, [facility]
--- NOTE | 2019-10-24 12:40 | NUR ---
PT ARRIVES TO ROOM VIA BED ESCORTED BY RECOVERY ROOM STAFF. PT IS AAO X 4 AND ANSWERS ALL QUESTIONS APPROPRIATLEY. DRESSING TO LEFT HIP IS NOTED AND CDI. ICE PACK TO LEFT HIP. SCD TO RLE. O2 VIA NC @ 2L. PT DENIES PRESENCE OF PAIN AT THIS TIME. PIV TO RIGHT AC INFUSING WITHOUT DIFFICULTY. FALL PRECAUTIONS IN PLACE. BLE PEDAL PULSES ARE PALP. BED IS IN THE LOWEST POSITION. CALL LIGHT AND BEDSIDE TABLE ARE WITIHN REACH. SIDE RAILS X 2. PT DENIES PRESENCE OF N/V/DYSPNEA. WILL CONT TO MONITOR.
[2019-10-25 04:00] VITALS: BP 154/56
--- NOTE | 2019-10-25 04:51 | NUR ---
ASSESSED AT THE BEGINNING OF THE SHIFT. PT IS ALERT AND ORIENTED, ABLE TO VERBALIZE NEEDS. SHE IS OCC. A LITTLE CONFUSED BUT MAINLY ORIENTED. SHE IS WEARING A LT SHOULDER SLING AND HAS A RT LEG SCD IN PLACE WITH A LINDSEY CATH INTACT. WE HAVE GIVEN HER ENOUGH ASSIST AND SHE IS DOING WELL. THERE IS A HAY IN PLACE.
[2019-10-25 06:56] LABS: HEMATOCRIT 23.6 % (36.0-48.0); HEMOGLOBIN 7.7 g/dL (12-16); MCH 32.4 pg (26.0-34.0); MCHC 32.6 g/dL (31.0-37.0); MCV 99.2 fL (80.0-100.0); MEAN PLATELET VOLUME 8.6 fL (7.4-10.4); RBC 2.38 10x6/uL (4.00-5.40); RDW 13.4 % (11.5-14.5); WBC 9.1 10x3/uL (4.8-10.8)
--- NOTE | 2019-10-25 07:15 | NUR ---
REC'D IN BED AWAKE AND ALERT TO SELF. RESP EVEN AND UNLABORED WITH NO DISTRESS NOTED. CAN EXPRESS NEEDS AND WANTS. NO C/O NOTED OR VOICED. NO C/O NOTED OR VOICED. ASSESSMENT COMPLETED. C/L IN REACH AT BEDSIDE.
--- NOTE | 2019-10-25 09:30 | NUR ---
WAS INFORMED BY SON THAT PT MEDICATION HAS TO BE CRUSHED AND PLACED EITHER IN APPLE SAUCE OR PUDDING D/T PT HAVING HARD TIME SWALLING PILLS. INFORMED SON THAT WE WILL HAVE SPEECH TO TONY PT.
[2019-10-25 09:52] VITALS: BP 160/61
[2019-10-25 10:08] LABS: ALBUMIN 2.5 g/dL (3.4-5.0); ANION GAP 10.2 mmol/L (8-16); BILIRUBIN - TOTAL 0.25 mg/dL (0.2-1.3); CARBON DIOXIDE 23.7 mmol/L (21.0-32.0); CREATININE - SERUM 0.8 mg/dL (0.6-1.3); POTASSIUM - SERUM 3.9 mmol/L (3.5-5.1); PROTEIN - SERUM 5.4 g/dL (6.4-8.2)
--- NOTE | 2019-10-25 12:37 | NUR ---
I have reviewed this patient and I concur with the Shift Assessment completed by the Licensed Practical Nurse today this shift.
[2019-10-25 13:23] VITALS: BP 158/71
--- NOTE | 2019-10-25 14:41 | OP ---
PATIENT NAME: CLIFF LINDO MEDICAL RECORD: [id number] :45 LOCATION:[id number] ADMISSION DATE:10/23/19 SURGEON: JOLANTA MICHELLE MD DATE OF OPERATION: 10/24/2019 PREOPERATIVE DIAGNOSES: 1. Left femoral neck fracture. 2. Pelvic ring injury. POSTOPERATIVE DIAGNOSES: 1. Left femoral neck fracture. 2. Pelvic ring injury. PROCEDURE PERFORMED: 1. Exam of pelvic ring under anesthesia. 2. Percutaneous screw fixation, left femoral neck fracture. 3. Closed Management pelvic ring injury INDICATIONS FOR THE PROCEDURE: Ms. Lindo is a 74-year-old female who fell yesterday at home and injured her left hip and pelvis. She was seen in the Emergency Department and found to have a nondisplaced femoral neck fracture as well as a pelvic ring injury involving a left sacral ala fracture and right pubic rami fractures. She was admitted and preop workup was completed. Arrangement was made for her to come to the operating room today. Risks, benefits and alternatives of surgery were discussed with the patient and consent was obtained. DESCRIPTION OF THE PROCEDURE: The patient was met in the holding area where her identity and confirmation of procedure was performed. The left lower extremity was marked. She was taken to the operating room where she was placed supine on the operating table. Anesthesia was administered. The patient received preoperative antibiotics and timeout was performed for initiating the case. On initiation of the case, exam of the pelvic ring under anesthesia was performed. AP inlet and outlet views were obtained. A stress view was performed in both the inlet and outlet views. On the inlet view, there was no displacement of the pelvic ring. On the outlet view, there did appear to be some slight compression at the sacral fracture site, but again no displacement of the pelvic ring. We then moved to the femoral neck fixation portion of the case. The left lower extremity was prepped and draped in a sterile fashion. Fluoroscopy was then used to obtain a reduction of the hip. An incision was made at the lateral hip and our guide pin was then inserted to the lateral hip at the level of the lesser trochanter. It was adjusted for alignment of both the AP and lateral planes and our most inferior guide pin was inserted along the inferior femoral neck, centered in the head of the femur. Using the drill guide Luke gun device, we then placed our posterior screw along the superior-posterior aspect of the femoral neck and adjusted it for its position and then placed our anterior superior guide pin. With the guide pins in place, we then began placing our 6.5 partially threaded cannulated screws. A washer was placed on our inferior screw. It was measured and then advanced out under power until it was near the cortex. It was then hand tightened at the level of the cortex. We had good position and alignment of our screw. We then placed 2 more screws, one posterior superior and one anterior superior to complete our fixation. The wires were then backed off. Again, our screw positioning was determined to be OPERATIVE REPORT [id number] CLIFF LINDO safe and in good position. Guide pins were then removed and final images were obtained, showed good alignment and fixation of the femoral neck. The wound was then irrigated thoroughly with saline. The IT band was repaired with Vicryl suture. Subcutaneous tissue was closed with Vicryl suture and the skin was closed with jolene. A sterile dressing was placed. The patient was turned back over to anesthesia where she was awakened, extubated, and taken to recovery room in stable condition. POSTOPERATIVE PLAN: The patient is going to return to the floor for routine postoperative care. She will receive 24 hours postoperative antibiotics, be started on DVT prophylaxis tomorrow. Physical therapy will be consulted to assist with mobilization. Touchdown weightbearing of left lower extremity. She will likely need a course of rehab upon discharge. ANESTHESIA: General. COMPLICATIONS: None. ESTIMATED BLOOD LOSS: 25 mL. TRANSINT:[id number] Voice Confirmation ID: [id number] DOCUMENT ID: [id number] JOLANTA MICHELLE MD at 1441 CC: [id number] DICTATION DATE: 10/24/19 1207 CLIENT CONSULTANT: 10/24/19 1310 ADM IN [facility] [address] [place] [address]
[2019-10-25 17:49] VITALS: BP 137/63
[2019-10-26 04:00] VITALS: BP 161/68; BP 162/67
[2019-10-26 05:58] LABS: BASOPHILS 0.1 % (0-2); HEMATOCRIT 22.9 % (36.0-48.0); HEMOGLOBIN 7.6 g/dL (12-16); IMMATURE GRANULOCYTES 0.3 % (0-5); LYMPHOCYTES 11.7 % (15-50); MCH 32.6 pg (26.0-34.0); MCHC 33.2 g/dL (31.0-37.0); MCV 98.3 fL (80.0-100.0); MEAN PLATELET VOLUME 8.8 fL (7.4-10.4); MONOCYTES 11.9 % (2-11); PLATELET COUNT 146 10x3/uL (130-400); RBC 2.33 10x6/uL (4.00-5.40); RDW 13.2 % (11.5-14.5); WBC 7.2 10x3/uL (4.8-10.8)
[2019-10-26 06:20] LABS: CALC OSMOLALITY 263 mosm/kg (275-300); CALCIUM 7.3 mg/dL (8.5-10.1); CARBON DIOXIDE 25.1 mmol/L (21.0-32.0); CHLORIDE - SERUM 99 mmol/L (98-107); GLUCOSE 116 mg/dL (74-106); POTASSIUM - SERUM 3.5 mmol/L (3.5-5.1); SODIUM 132 mmol/L (136-145); UREA NITROGEN 8 mg/dL (7-18)
[2019-10-26 06:22] LABS: CREATININE - SERUM 0.5 mg/dL (0.6-1.3); MAGNESIUM - SERUM 1.5 mg/dL (1.8-2.4); PHOSPHOROUS 1.6 mg/dL (2.5-4.9); eGFR NON AFRICAN AMERICAN > 90 mL/min (90-120)
--- NOTE | 2019-10-26 07:15 | NUR ---
REC'D IN WALKING ROUNDS AWAKE AND ALERT. RESP EVEN AND UNLABORED WITH NO DISTRESS NOTED. CAN EXPRESS NEEDS AND WANTS. NO C/O NOTED OR VOICED ASSESSMENT COMPLETED. C/L IN REACH AT BEDSIDE.
[2019-10-26 10:00] VITALS: BP 117/60
[2019-10-26 12:42] VITALS: BP 126/47
--- NOTE | 2019-10-26 14:00 | NUR ---
WAS MEDICATED AT THIS TIME WITH NORCO FOR C/O HIP PAIN.
--- NOTE | 2019-10-26 16:27 | NUR ---
I have reviewed this patient and I concur with the Shift Assessment completed by the Licensed Practical Nurse today this shift.
[2019-10-26 17:39] VITALS: BP 129/52
[2019-10-26 20:00] VITALS: BP 107/41
--- NOTE | 2019-10-26 21:00 | NUR ---
LYING IN BED WATCHING TV. ALERT AND ORIENTED X4. RESP NONLABORED. O2 @ 1.5L/NC. SCDS IN USE BILAT. DRSG NOTED TO LT HIP IS C/D/I. NONPROD COUGH NOTED. PT GIVEN I.S. AND INSTRUCTED ON USE AND OBSERVED PT USE. LINDSEY CATH PATENT AND DRAINING CLEAR YELLOW URINE. NS @ 50 MLHR INFUSING IN LT FOREARM. RATES PAIN 8. DBP 44 SO THIS WRITERS JUDGEMENT NOT TO GIVE PAIN MED AT THIS TIME AND EXPLAINED TO PT AND SHE VERABLIZED UNDERSTANDING. BRUISES NOTED TO BUE. NO DISTRESS. SR ELEVATED X2. CL IN REACH.
--- NOTE | 2019-10-26 21:59 | NUR ---
OT NOTE: PT COMPLETED EOB SITTING WITH MOD A. PT COMPLETED SIT TO SUPINE WITH MIN/MOD A. PT COMPLETED HAIR GROOMING WITH MIN A. [phone] THANK YOU,CAMI NAVA
[2019-10-27] VITALS (10 sets, daily range): BP systolic 127–169; BP diastolic 58–77
--- NOTE | 2019-10-27 01:03 | NUR ---
MEDICATED WITH NORCO FOR C/O PAIN IN LT HIP. CL IN REACH.
[2019-10-27 06:29] LABS: BASOPHILS 0.2 % (0-2); EOSINOPHILS 2.2 % (0-7); HEMATOCRIT 20.5 % (36.0-48.0); IMMATURE GRANULOCYTES 0.2 % (0-5); LYMPHOCYTES 17.9 % (15-50); MCH 32.5 pg (26.0-34.0); MCHC 32.7 g/dL (31.0-37.0); MCV 99.5 fL (80.0-100.0); MONOCYTES 13.6 % (2-11); NEUTROPHILS 65.9 % (40-80); PLATELET COUNT 128 10x3/uL (130-400); RBC 2.06 10x6/uL (4.00-5.40); RDW 13.3 % (11.5-14.5); WBC 5.1 10x3/uL (4.8-10.8)
[2019-10-27 06:31] LABS: HEMOGLOBIN 6.7 g/dL (12-16)
--- NOTE | 2019-10-27 06:36 | NUR ---
PAGED DOG GROOMER FOR DR. HERNANDES TO REPORT CRITICAL HGB.
[2019-10-27 06:40] LABS: CALC OSMOLALITY 269 mosm/kg (275-300); CALCIUM 7.2 mg/dL (8.5-10.1); CARBON DIOXIDE 26.2 mmol/L (21.0-32.0); CHLORIDE - SERUM 103 mmol/L (98-107); CREATININE - SERUM 0.5 mg/dL (0.6-1.3); GLUCOSE 114 mg/dL (74-106); MAGNESIUM - SERUM 1.6 mg/dL (1.8-2.4); PHOSPHOROUS 1.9 mg/dL (2.5-4.9); POTASSIUM - SERUM 3.8 mmol/L (3.5-5.1); SODIUM 135 mmol/L (136-145); UREA NITROGEN 10 mg/dL (7-18); eGFR NON AFRICAN AMERICAN > 90 mL/min (90-120)
--- NOTE | 2019-10-27 09:41 | NUR ---
PT LAYING IN BED ON BACK. A/O. NO NEEDS AT THIS TIME. BLOOD NEEDS TO BE TRANSFUSED SO I ATTEMPTED 2 20G IV ON RIGHT FOREARM. UNSUCCESSFUL. Blanca BATES RN STARTED 20 G ON LEFT FOREARM ONE ATTEMPT. CL IN REACH. CALLED SON BACK. JOCELINE
--- NOTE | 2019-10-27 14:55 | NUR ---
PT LAYING IN BED ON BACK. NO NEEDS AT THIS TIME. WAS ABLE TO SWALLOW HER LIBRIUM WHOLE. CL IN REACH. NO NEEDS AT THIS TIME. 2ND BAG OF BLOOD INFUSING. WCTM
[2019-10-28] VITALS: BP 154/65
[2019-10-28 04:00] VITALS: BP 175/72
[2019-10-28 06:40] LABS: CALC OSMOLALITY 265 mosm/kg (275-300); CALCIUM 7.5 mg/dL (8.5-10.1); CARBON DIOXIDE 26.2 mmol/L (21.0-32.0); CHLORIDE - SERUM 101 mmol/L (98-107); CREATININE - SERUM 0.6 mg/dL (0.6-1.3); GLUCOSE 93 mg/dL (74-106); MAGNESIUM - SERUM 1.8 mg/dL (1.8-2.4); PHOSPHOROUS 3.4 mg/dL (2.5-4.9); POTASSIUM - SERUM 3.7 mmol/L (3.5-5.1); SODIUM 134 mmol/L (136-145); UREA NITROGEN 8 mg/dL (7-18); eGFR NON AFRICAN AMERICAN > 90 mL/min (90-120)
[2019-10-28 06:53] LABS: BASOPHILS 0.3 % (0-2); EOSINOPHILS 3.3 % (0-7); IMMATURE GRANULOCYTES 0.3 % (0-5); LYMPHOCYTES 16.9 % (15-50); MCH 31.6 pg (26.0-34.0); MCHC 33.9 g/dL (31.0-37.0); MEAN PLATELET VOLUME 9.2 fL (7.4-10.4); MONOCYTES 16.9 % (2-11); NEUTROPHILS 62.3 % (40-80); PLATELET COUNT 147 10x3/uL (130-400); RDW 15.7 % (11.5-14.5); WBC 5.8 10x3/uL (4.8-10.8)
[2019-10-28 06:54] LABS: HEMATOCRIT 30.1 % (36.0-48.0); HEMOGLOBIN 10.2 g/dL (12-16); MCV 93.2 fL (80.0-100.0); RBC 3.23 10x6/uL (4.00-5.40)
--- NOTE | 2019-10-28 08:30 | NUR ---
PT LAYING IN BED. REQUESTS ME TO STRAIGHTEN THE SHEETS. THIS WAS DONE. STRAIGHTENED HER RIGHT SOCK. NO FURTHER NEEDS AT THIS TIME. CL IN REACH. WCTM
[2019-10-28 09:27] VITALS: BP 184/77
[2019-10-28 13:45] VITALS: BP 123/74
--- NOTE | 2019-10-28 15:41 | NUR ---
PT RESTING IN BED. CL IN REACH. NO NEEDS AT THIS TIME. WCTM
[2019-10-28 17:48] VITALS: BP 165/70
[2019-10-28 20:28] VITALS: BP 145/69
[2019-10-29 00:24] VITALS: BP 175/77
--- NOTE | 2019-10-29 02:42 | NUR ---
REC'D. CHGE.OF SHIFT WALKING ROUNDS. IN BED WATCHING TV.DENIES PAIN AT PRESENT TIME WILL CONTINUE TO MONITOR FOR ANY CHGES NEUROVAASCULAR STATUS AND FOLLOW CURRENT PLAN OF CARE.
[2019-10-29 04:51] VITALS: BP 144/70
[2019-10-29 06:45] LABS: BASOPHILS 0.3 % (0-2); EOSINOPHILS 1.6 % (0-7); HEMATOCRIT 30.3 % (36.0-48.0); HEMOGLOBIN 9.9 g/dL (12-16); IMMATURE GRANULOCYTES 0.2 % (0-5); LYMPHOCYTES 15.5 % (15-50); MCH 30.7 pg (26.0-34.0); MCHC 32.7 g/dL (31.0-37.0); MCV 93.8 fL (80.0-100.0); MEAN PLATELET VOLUME 8.8 fL (7.4-10.4); MONOCYTES 16.1 % (2-11); NEUTROPHILS 66.3 % (40-80); PLATELET COUNT 168 10x3/uL (130-400); RBC 3.23 10x6/uL (4.00-5.40); RDW 15.1 % (11.5-14.5); WBC 5.7 10x3/uL (4.8-10.8)
[2019-10-29 06:46] LABS: CALC OSMOLALITY 270 mosm/kg (275-300); CALCIUM 7.9 mg/dL (8.5-10.1); CARBON DIOXIDE 25.6 mmol/L (21.0-32.0); CHLORIDE - SERUM 100 mmol/L (98-107); CREATININE - SERUM 0.6 mg/dL (0.6-1.3); GLUCOSE 115 mg/dL (74-106); MAGNESIUM - SERUM 1.7 mg/dL (1.8-2.4); SODIUM 135 mmol/L (136-145); eGFR NON AFRICAN AMERICAN > 90 mL/min (90-120)
[2019-10-29 06:47] LABS: UREA NITROGEN 13 mg/dL (7-18)
[2019-10-29 08:41] VITALS: BP 120/79
--- NOTE | 2019-10-29 11:54 | NUR ---
PATIENT HEAD ANIMAL KEEPER LIGHT COMPLAINING OF RIGHT SIDE IV HURTING. ATTEMPTED TO FLUSH AND INFILTRATED. REMOVED, IV CATH TIP INTACT.
--- NOTE | 2019-10-29 12:03 | NUR ---
PATIENT IN BED. INCONTINENT EPISODE. CLEANED UP AND DID A FULL BED CHANGE. PATIENT RESTING, AWAITING LUNCH. BED LOW POSITION, CALL LIGHT IN REACH, WILL CONTINUE TO MONITOR.
[2019-10-29 13:26] VITALS: BP 120/79
--- NOTE | 2019-10-29 14:28 | NUR ---
OT NOTE: ATTEMPTED TMT THIS AFTERNOON, HOWEVER, PT UNABLE TO TOLERATE DUE TO REPORTED FREQ EPISODES OF DIARRHEA. AURELIA HORVATH, OTR/L
--- NOTE | 2019-10-29 16:05 | NUR ---
Rehab Note- Spoke with SUSANNA Giraldo and she is going to discuss with the patient SNF placement due to being low level at this time. Will continue to follow at this time. Thank you for this referral! Dede Cardona RN Clinical Liaison, [facility] Rehab
[2019-10-29 16:24] VITALS: BP 163/73
[2019-10-29 20:00] VITALS: BP 161/78
--- NOTE | 2019-10-30 02:46 | NUR ---
CHGE. OF SHIFT HAD SMALL LOOSE BM STATES HAS BEEN DOING THIS ALL DAY. PERICARE GIVEN LINENS CHGED.WILL CONTINUE TO MONITOR FOR ANY CHGES NEUROVASCULAR STATUS AND FOLLOW CURRENT PLAN OF CARE.
[2019-10-30 04:00] VITALS: BP 92/64
[2019-10-30 06:47] LABS: CALC OSMOLALITY 266 mosm/kg (275-300); CALCIUM 8.2 mg/dL (8.5-10.1); CARBON DIOXIDE 24.9 mmol/L (21.0-32.0); CHLORIDE - SERUM 100 mmol/L (98-107); CREATININE - SERUM 0.5 mg/dL (0.6-1.3); GLUCOSE 97 mg/dL (74-106); MAGNESIUM - SERUM 1.8 mg/dL (1.8-2.4); POTASSIUM - SERUM 3.9 mmol/L (3.5-5.1); SODIUM 134 mmol/L (136-145); UREA NITROGEN 11 mg/dL (7-18); eGFR NON AFRICAN AMERICAN > 90 mL/min (90-120)
[2019-10-30 06:48] LABS: BASOPHILS 0.4 % (0-2); EOSINOPHILS 2.5 % (0-7); HEMATOCRIT 30.3 % (36.0-48.0); IMMATURE GRANULOCYTES 0.4 % (0-5); LYMPHOCYTES 16.3 % (15-50); MCH 31.2 pg (26.0-34.0); MCV 94.4 fL (80.0-100.0); MEAN PLATELET VOLUME 8.7 fL (7.4-10.4); MONOCYTES 18.9 % (2-11); NEUTROPHILS 61.5 % (40-80); PLATELET COUNT 193 10x3/uL (130-400); RBC 3.21 10x6/uL (4.00-5.40); RDW 14.9 % (11.5-14.5); WBC 5.7 10x3/uL (4.8-10.8)
[2019-10-30 09:36] VITALS: BP 178/81
--- NOTE | 2019-10-30 10:52 | NUR ---
PATIENT IN BED WATCHING TV. DENIES PAIN OR NEEDS. BED LOW POSITION, CALL LIGHT IN REACH, WILL CONTINUE TO MONITOR.
--- NOTE | 2019-10-30 12:49 | NUR ---
PATIENT SOLAR SALES AMBASSADOR LIGHT. EXPLAINS NEED TO URINATE. UP TO BEDSIDE COMMODE WITH X2 PERSON ASSIST.
[2019-10-30 13:24] VITALS: BP 161/73
--- NOTE | 2019-10-30 13:41 | NUR ---
Nutrition follow-up: Diet: Regular PO intake 75% of some meals +BM, loose Labs reviewed Wt: 104# Will continue to provide food choices with selective menus and honor food preferences. RDN following.
--- NOTE | 2019-10-30 16:06 | NUR ---
OT NOTE: PT COMPLETED BED MOB TASKS WITH MIN/MOD A. PT REQUIRED MOD A FOR POSITIONING. PT COMPLETED UB HYGIENE WITH SETUP. [phone] THANK YOU,CAMI NAVA
--- NOTE | 2019-10-30 17:13 | NUR ---
OT NOTE: ASSISTED PT WITH TRANSFERS TO DETERMINE APPROPRIATE DC LOCATION. PT IN RECLINER; MIN ASSIST TO SCOOT TO EDGE OF CHAIR. DUE TO CHAIR BEING LOW TO GROUND, SHE REQUIRED MOD ASSIST FOR SIT TO STAND; MOD VERBAL CUES FOR NWB.. HOWEEVER, ONCE PT IS UP TO STANDING, WITH USE OF WALKER SHE IS ABLE TO PIVOT ON R FOOT WITH MIN ASSIST FOR SUPPORT. PT IS WEAK IN ALL EXTREMETIES MAKING TRANSFERS DIFFICULT, HOWEVER, RECOMMEND IP REHAB TO ALLOW PT TO RETURN HOME TO [facility]. THOUGH SHE DOES EXHIBIT INCREASED PAIN IN L HIP, SHE IS MOTIVATED TO RETURN HOME. PERFORMS WELL WITH UPPER BODY ADLS, BUT REQUIRES EXT ASSIST WITH LOWER BODY ADLS. WILL REQUIRE USE OF ADAP EQUIP FROM REHAB. AURELIA HORVATH, OTR/L [phone]
[2019-10-30 18:21] VITALS: BP 142/69
[2019-10-30 20:00] VITALS: BP 131/66
--- NOTE | 2019-10-31 02:13 | NUR ---
REC'D CHGE OF SHIFT IN BED EYES CLOSED RESP. DEEP AND EVEN.WILL CONTINUE TO MONITOR FOR ANY CHGES NEUROVASCULAR STATUS AND FOLLOW CURRENT PLAN OF CARE
[2019-10-31 04:00] VITALS: BP 161/73
--- NOTE | 2019-10-31 05:02 | NUR ---
I have reviewed this patient and I concur with the Shift Assessment completed by the Licensed Practical Nurse today this shift.
[2019-10-31 06:57] LABS: BASOPHILS 0.2 % (0-2); EOSINOPHILS 2.4 % (0-7); HEMATOCRIT 29.1 % (36.0-48.0); HEMOGLOBIN 9.5 g/dL (12-16); IMMATURE GRANULOCYTES 0.5 % (0-5); LYMPHOCYTES 19.9 % (15-50); MCH 31.1 pg (26.0-34.0); MCHC 32.6 g/dL (31.0-37.0); MCV 95.4 fL (80.0-100.0); MEAN PLATELET VOLUME 8.7 fL (7.4-10.4); MONOCYTES 17.2 % (2-11); NEUTROPHILS 59.8 % (40-80); PLATELET COUNT 226 10x3/uL (130-400); RBC 3.05 10x6/uL (4.00-5.40); RDW 14.9 % (11.5-14.5); WBC 5.5 10x3/uL (4.8-10.8)
[2019-10-31 07:44] LABS: ALBUMIN 2.3 g/dL (3.4-5.0); ALKALINE PHOSPHATASE 92 U/L (30-120); ALT (SGPT) 16 U/L (10-68); BILIRUBIN - TOTAL 0.43 mg/dL (0.2-1.3); CALC OSMOLALITY 272 mosm/kg (275-300); CALCIUM 7.8 mg/dL (8.5-10.1); CARBON DIOXIDE 24.1 mmol/L (21.0-32.0); CHLORIDE - SERUM 102 mmol/L (98-107); CREATININE - SERUM 0.5 mg/dL (0.6-1.3); GLUCOSE 90 mg/dL (74-106); MAGNESIUM - SERUM 1.9 mg/dL (1.8-2.4); POTASSIUM - SERUM 4.1 mmol/L (3.5-5.1); PROTEIN - SERUM 5.2 g/dL (6.4-8.2); SODIUM 136 mmol/L (136-145); eGFR NON AFRICAN AMERICAN > 90 mL/min (90-120)
[2019-10-31 07:47] LABS: UREA NITROGEN 15 mg/dL (7-18)
[2019-10-31 09:48] VITALS: BP 153/70
[2019-10-31 12:00] VITALS: BP 146/72
--- NOTE | 2019-10-31 13:35 | NUR ---
OT NOTE: PERFORMED BED MOB WITH MAX ASSIST FOR SUPINE TO SIT; MIN/MOD ASIST FOR SIT TO STAND WITH WALKER; ABLE TO PIVOT ON R FOOT FROM BED TO CHAIR WITH MIN ASSIST; SIMPLE GROOMING WITH SET UP. AURELIA HORVATH, OTR/L [phone]
[2019-10-31 17:14] VITALS: BP 139/69
--- NOTE | 2019-10-31 17:22 | NUR ---
OT NOTE: PT COMPLETED EOB SITTING WITH MIN A. PT COMPLETED SUPINE TO SIT WITH MOD A. PT COMPLETED UE AROM WITH BED MOB TASKS. [phone] THANK YOU,CAMI NAVA
[2019-10-31 20:00] VITALS: BP 136/52
--- NOTE | 2019-10-31 20:00 | NUR ---
PATIENT RESTING IN BED WATCHING TV. NO S/S OF ACUTE DISTRESS. NO C/O AT THIS TIME. PATIENT HAS IV IN LEFT WRIST, NORMAL SALINE @ 50 ML/HR. IV IS PATENT WITHOUT REDNESS, SWELLING, OR TENDERNESS. PATIENT HAS DRESSING ON LEFT HIP, DRESSING IS C/D/I. PATIENT IS INCONTINENT OF BLADDER STATING, "I JUST HAVE NO IDEA WHEN IT IS COMING ANYMORE." CALL LIGHT WITHIN REACH. WILL CONTINUE TO MONITOR.
--- NOTE | 2019-10-31 20:16 | NUR ---
0700 BEDSIDE REPORT RECEIVED ASSESSMEN COMPLETE
--- NOTE | 2019-10-31 20:17 | NUR ---
1100 UP IN RECLINER CHAIR WATCHING TV
--- NOTE | 2019-10-31 20:18 | NUR ---
1600 ASSISTED BACK TO BED WITH ASSIST X 2
[2019-11-01] VITALS: BP 143/58
[2019-11-01 04:00] VITALS: BP 153/72
--- NOTE | 2019-11-01 05:13 | NUR ---
I have reviewed this patient and I concur with the Shift Assessment completed by the Licensed Practical Nurse today this shift.
[2019-11-01 06:31] LABS: BASOPHILS 0.5 % (0-2); EOSINOPHILS 3.3 % (0-7); HEMATOCRIT 28.8 % (36.0-48.0); HEMOGLOBIN 9.5 g/dL (12-16); IMMATURE GRANULOCYTES 0.4 % (0-5); LYMPHOCYTES 19.2 % (15-50); MCH 31.8 pg (26.0-34.0); MCV 96.3 fL (80.0-100.0); MEAN PLATELET VOLUME 8.7 fL (7.4-10.4); MONOCYTES 18.3 % (2-11); NEUTROPHILS 58.3 % (40-80); RBC 2.99 10x6/uL (4.00-5.40); RDW 14.6 % (11.5-14.5); WBC 5.5 10x3/uL (4.8-10.8)
[2019-11-01 06:38] LABS: PLATELET COUNT 272 10x3/uL (130-400)
[2019-11-01 06:55] LABS: ALBUMIN 2.3 g/dL (3.4-5.0); ALKALINE PHOSPHATASE 104 U/L (30-120); ALT (SGPT) 18 U/L (10-68); BILIRUBIN - TOTAL 0.27 mg/dL (0.2-1.3); CALC OSMOLALITY 269 mosm/kg (275-300); CALCIUM 8.2 mg/dL (8.5-10.1); CARBON DIOXIDE 25.2 mmol/L (21.0-32.0); CHLORIDE - SERUM 101 mmol/L (98-107); CREATININE - SERUM 0.7 mg/dL (0.6-1.3); GLUCOSE 99 mg/dL (74-106); MAGNESIUM - SERUM 1.9 mg/dL (1.8-2.4); PROTEIN - SERUM 5.7 g/dL (6.4-8.2); SODIUM 134 mmol/L (136-145); UREA NITROGEN 17 mg/dL (7-18); eGFR NON AFRICAN AMERICAN 87 mL/min (90-120)
--- NOTE | 2019-11-01 08:23 | NUR ---
The patient is awake and alert, sitting up eating breakfast, bilat. edema noted to bilat. lower extremities.
--- NOTE | 2019-11-01 08:31 | NUR ---
The patient is awake and sitting up eating breakfast, denies needs.
--- NOTE | 2019-11-01 08:46 | MORECARE ---
CASE MANAGEMENT DISCHARGE SUMMARY PATIENT: CLIFF LINDO UNIT: [id number] ADM DATE: 10/23/19 AGE: 74 : 45 SEX: F ROOM/BED: D.2229 AUTHOR: BONILLA,DOC PHYSICIAN: REFERRING PHYSICIAN: MARCELA HERNANDES MD DATE OF SERVICE: 11/01/19 Discharge Plan Patient Name: CLIFF LINDO Facility: [facility]:[place] : 1945 Planned Disposition: Anticipated Discharge Date: Discharge Date: Expected LOS: Initial Reviewer: [email or web address] Initial Review Date: 10/31/2019 Generated: 11/01/19 9:46 am Comments DCP- Discharge Planning Updated by [email or web address]: Kristal Herrera on 11/01/19 7:[address] Patient Name: CLIFF LINDO Admission Status: ER Accout number: [id number] Admission Date: 10-23-2019 : 1945 Admission Diagnosis:DISPLACED ARTICULAR FRACTURE OF HEAD OF LEFT FEMUR, INI Attending: MATT HERNANDES Current LOS: 9 Anticipated DC Date: Planned Disposition: Primary Insurance: NOVASYSMCR Discharge Planning Comments: SPOKE WITH PATIENT YESTERDAY AND SHE WOULD LIKE ANY SNF THAT IS IN NETWORK WITH HER INSURANCE. CANDIDA SIGNED. FAXED REFERRAL TO [facility] TO FIND SNF PLACEMENT. WAITING CALL BACK TODAY. Communication Signals Intelligence: Kristal Herrera DCP- Discharge Planning Updated by [email or web address]: Kristal Herrera on 10/30/19 3:[address] Patient Name: CLIFF LINDO Admission Status: ER Accout number: [id number] Admission Date: 10-23-2019 : 1945 Admission Diagnosis:DISPLACED ARTICULAR FRACTURE OF HEAD OF LEFT FEMUR, INI Attending: MATT HERNANDES Current LOS: 7 Anticipated DC Date: Planned Disposition: Primary Insurance: NOVASYSMCR Discharge Planning Comments: CM met with patient at bedside after explaining CM role and obtaining verbal consent. CM discussed availability / needs of home health, REHAB and medical equipment. PATIENT STATES CURRENT WITH [facility] BUT WANTS ME TO COME BACK LATER AND TALK WITH HER. SHE HAS TO USE THE BATHROOM. Communication Signals Intelligence: Kristal Herrera External Providers External Provider: OTHER-OTHER Next Contact Date: Service Request Date: Service Type: Resolution: Reviewer: Comments: Coverage Notice Reviewer: [email or web address] - Kristal Herrera Notice Issued Date-Time: 11/01/2019 8:42 Notice Type: Patient Choice Letter Notice Delivered To: Patient Relationship to Patient: Technology Director Name: Delivery Method: HAND - Hand Delivered Sayra Days: Prior Verbal Notification: Recipient Understood Notice: Yes Recipient Signature: Yes Med Rec Note Co-signed by Attending: Coverage Notice Comment: ANY SNF IN [place] THAT IS IN NETWORK WITH HER INSURANCE. FAXED REFERRAL TO [facility]. Patient Name: CLIFF LINDO Page [phone] at 0846 All edits/amendments must be made on the electronic document DICTATION DATE: 11/01/1946 ELEMENTARY SUBSTITUTE TEACHER: TED 11/01/1946 RPT#: [id number] DC DATE: STATUS: ADM IN [facility] [address] [place] [address] END OF REPORT
[2019-11-01 09:24] VITALS: BP 137/59
--- NOTE | 2019-11-01 10:51 | NUR ---
The patient c/o generalized pain rates pain 10/10, [place] po, monitor.
--- NOTE | 2019-11-01 11:30 | NUR ---
The patient is resting easier, but not asleep as she is receiving phone calls.
[2019-11-01 13:51] VITALS: BP 155/59
--- NOTE | 2019-11-01 15:16 | NUR ---
OT NOTE: PT COMPLETED SUPINE TO SIT WITH MOD A. PT COMPLETED SIT TO STAND WITH MIN/MOD A. PT COMPLETED BED TO C TSF WITH MIN A. PT COMPLETED TOILET HYGIENE WITH SETUP. [phone] THANK YOU,CAMI NAVA
--- NOTE | 2019-11-01 16:09 | NUR ---
Rehab Note- Acute Inpatient reconsulted with patient able to participate better with therapy services at this time. The patient has [employer] insurance and will require a PreAuth. Have initiated PreAuth process and faxed clinicals for review for possible inpatient acute rehab stay. Will await determination at this time. Thank you for this referral! Dede Cardona RN Clinical Liaison, [facility] Rehab
[2019-11-01 17:43] VITALS: BP 152/70
--- NOTE | 2019-11-01 18:20 | NUR ---
The patient is c/o pain where tape is, changed the IV tape to papertape.
--- NOTE | 2019-11-01 18:32 | NUR ---
The patient c/o pain generalized 11/29. [place] po provided. Monitor.
--- NOTE | 2019-11-01 20:00 | NUR ---
PATIENT RESTING IN BED WATCHING TV. NO S/S OF ACUTE DISTRESS. NO C/O AT THIS TIME. PATIENT HAS RIGHT FOREARM, SALINE LOC. IV IS PATENT WITHOUT REDNESS, SWELLING, OR TENDERNESS. PATIENT HAS A LEFT HIP DRESSING, AND SEEMS TO HAVE PAIN ANYTIME SHE MOVES. PATIENT IS INCONTINENT OF BOWEL AND BLADDER BECAUSE "IT HURTS TOO MUCH TO GET UP AND USE THE BEDSIDE COMMODE." CALL LIGHT WITHIN REACH. BED ALARM ON. WILL CONTINUE TO MONITOR.
[2019-11-01 20:10] VITALS: BP 159/62
[2019-11-02] VITALS: BP 149/56
--- NOTE | 2019-11-02 02:26 | NUR ---
I have reviewed this patient and I concur with the Shift Assessment completed by the Licensed Practical Nurse today this shift.
[2019-11-02 04:00] VITALS: BP 132/64
[2019-11-02 06:33] LABS: BASOPHILS 0.8 % (0-2); EOSINOPHILS 2.8 % (0-7); HEMATOCRIT 29.3 % (36.0-48.0); HEMOGLOBIN 9.5 g/dL (12-16); IMMATURE GRANULOCYTES 0.4 % (0-5); LYMPHOCYTES 16.9 % (15-50); MCHC 32.4 g/dL (31.0-37.0); MCV 95.8 fL (80.0-100.0); MEAN PLATELET VOLUME 8.7 fL (7.4-10.4); MONOCYTES 18.2 % (2-11); NEUTROPHILS 60.9 % (40-80); PLATELET COUNT 325 10x3/uL (130-400); RBC 3.06 10x6/uL (4.00-5.40); RDW 14.5 % (11.5-14.5); WBC 5.3 10x3/uL (4.8-10.8)
[2019-11-02 07:23] LABS: ALBUMIN 2.5 g/dL (3.4-5.0); ALKALINE PHOSPHATASE 113 U/L (30-120); ALT (SGPT) 18 U/L (10-68); BILIRUBIN - TOTAL 0.32 mg/dL (0.2-1.3); CALC OSMOLALITY 267 mosm/kg (275-300); CALCIUM 8.5 mg/dL (8.5-10.1); CARBON DIOXIDE 23.3 mmol/L (21.0-32.0); CHLORIDE - SERUM 99 mmol/L (98-107); CREATININE - SERUM 0.6 mg/dL (0.6-1.3); GLUCOSE 100 mg/dL (74-106); POTASSIUM - SERUM 3.9 mmol/L (3.5-5.1); SODIUM 133 mmol/L (136-145); UREA NITROGEN 18 mg/dL (7-18); eGFR NON AFRICAN AMERICAN > 90 mL/min (90-120)
[2019-11-02 09:54] VITALS: BP 144/60
--- NOTE | 2019-11-02 11:15 | NUR ---
PT ALERT X 4. BREATH SOUNDS CLEAR BILAT. IV TO RIGHT FOREARM, SALINE LOCKED. DRESSING TO LEFT HIP CDI. PT REPORTING PAIN OF 10/10, MEDICATED PER ORDERS, WILL CONTINUE TO MONITOR. BED LOW, CALL LIGHT IN REACH. NO OTHER NEEDS AT THIS TIME.
[2019-11-02 12:43] VITALS: BP 137/58
[2019-11-02 16:00] VITALS: BP 120/53
--- NOTE | 2019-11-02 19:10 | NUR ---
A&O, UP TO BEDSIDE COMMODE AND BACK IN BED, BREATHING EVEN UNLABORED, CALL LIGHT IN REACH, DENIES NEEDS, BED LOWEST POSITION, IV RFA SL, LEFT HIP DRESSING CDI
[2019-11-02 20:00] VITALS: BP 138/56
[2019-11-03] VITALS: BP 142/56
[2019-11-03 04:00] VITALS: BP 150/72
--- NOTE | 2019-11-03 06:00 | NUR ---
I have reviewed this patient and I concur with the Shift Assessment completed by the Licensed Practical Nurse today this shift.
[2019-11-03 06:25] LABS: BASOPHILS 0.6 % (0-2); EOSINOPHILS 2.8 % (0-7); HEMATOCRIT 29.2 % (36.0-48.0); HEMOGLOBIN 9.4 g/dL (12-16); IMMATURE GRANULOCYTES 0.6 % (0-5); LYMPHOCYTES 20.5 % (15-50); MCH 30.8 pg (26.0-34.0); MCHC 32.2 g/dL (31.0-37.0); MCV 95.7 fL (80.0-100.0); MEAN PLATELET VOLUME 8.6 fL (7.4-10.4); MONOCYTES 15.9 % (2-11); NEUTROPHILS 59.6 % (40-80); PLATELET COUNT 334 10x3/uL (130-400); RBC 3.05 10x6/uL (4.00-5.40); RDW 14.2 % (11.5-14.5); WBC 5.4 10x3/uL (4.8-10.8)
[2019-11-03 07:09] LABS: ALBUMIN 2.5 g/dL (3.4-5.0); ALKALINE PHOSPHATASE 132 U/L (30-120); BILIRUBIN - TOTAL 0.34 mg/dL (0.2-1.3); CALC OSMOLALITY 268 mosm/kg (275-300); CALCIUM 8.5 mg/dL (8.5-10.1); CARBON DIOXIDE 24.5 mmol/L (21.0-32.0); CHLORIDE - SERUM 99 mmol/L (98-107); CREATININE - SERUM 0.6 mg/dL (0.6-1.3); GLUCOSE 96 mg/dL (74-106); MAGNESIUM - SERUM 2.1 mg/dL (1.8-2.4); POTASSIUM - SERUM 3.9 mmol/L (3.5-5.1); PROTEIN - SERUM 6.2 g/dL (6.4-8.2); SODIUM 133 mmol/L (136-145); UREA NITROGEN 20 mg/dL (7-18); eGFR NON AFRICAN AMERICAN > 90 mL/min (90-120)
[2019-11-03 07:15] LABS: ALT (SGPT) 23 U/L (10-68)
[2019-11-03 08:46] VITALS: BP 126/59
[2019-11-03 12:44] VITALS: BP 164/76
[2019-11-03 16:42] VITALS: BP 131/54
--- NOTE | 2019-11-03 19:00 | NUR ---
ALERT AND ORIENTED WATCHING TV. TELE MONITOR ON AND SECURED PER ORDER. LEFT HIP DRESSING IN TACT. SPOKE WITH PATIENT ABOUT PAIN CONTROL. REQUESTS PAIN MEDICINE WHEN AVAILABLE. SPOKE WITH PATIENT ABOUT DAILY DRESSING CHANGE.. VERBALIZED UNDERSTANDING. DENIES FURTHER NEEDS AT THIS TIME. CALL LIGHT REMAINS CLOSE TO PATIENT. CPOC.
[2019-11-03 20:00] VITALS: BP 174/69
--- NOTE | 2019-11-03 22:00 | NUR ---
DRESSING CHANGE PERFORMED PER ORDER. PATIENT TOLERATED WELL. DENIES FURTHER NEEDS AT THIS TIME. CALL LIGHT REMAINS CLOSE. CPOC.
[2019-11-04] VITALS: BP 154/69
[2019-11-04 04:00] VITALS: BP 163/67
[2019-11-04 06:01] LABS: BASOPHILS 0.5 % (0-2); EOSINOPHILS 3.4 % (0-7); HEMATOCRIT 29.4 % (36.0-48.0); HEMOGLOBIN 9.5 g/dL (12-16); IMMATURE GRANULOCYTES 0.5 % (0-5); LYMPHOCYTES 21.9 % (15-50); MCH 30.9 pg (26.0-34.0); MCHC 32.3 g/dL (31.0-37.0); MCV 95.8 fL (80.0-100.0); MEAN PLATELET VOLUME 8.5 fL (7.4-10.4); MONOCYTES 13.6 % (2-11); NEUTROPHILS 60.1 % (40-80); PLATELET COUNT 351 10x3/uL (130-400); RBC 3.07 10x6/uL (4.00-5.40); RDW 13.9 % (11.5-14.5); WBC 5.5 10x3/uL (4.8-10.8)
[2019-11-04 06:30] LABS: ALBUMIN 2.6 g/dL (3.4-5.0); ALKALINE PHOSPHATASE 151 U/L (30-120); ALT (SGPT) 20 U/L (10-68); BILIRUBIN - TOTAL 0.34 mg/dL (0.2-1.3); CALC OSMOLALITY 265 mosm/kg (275-300); CALCIUM 8.5 mg/dL (8.5-10.1); CHLORIDE - SERUM 99 mmol/L (98-107); CREATININE - SERUM 0.6 mg/dL (0.6-1.3); GLUCOSE 84 mg/dL (74-106); MAGNESIUM - SERUM 1.8 mg/dL (1.8-2.4); POTASSIUM - SERUM 4.4 mmol/L (3.5-5.1); PROTEIN - SERUM 5.7 g/dL (6.4-8.2); SODIUM 132 mmol/L (136-145); UREA NITROGEN 17 mg/dL (7-18); eGFR NON AFRICAN AMERICAN > 90 mL/min (90-120)
--- NOTE | 2019-11-04 07:30 | NUR ---
PT RESTING QUIETLY IN BED. PT VOICES INCONTINENCE OF URINE. ASSISTED PT WITH ALICIA CARE AND CHANGE OF BED LINENS. REPORTS PAIN 3/10 AT THIS TIME. DENIES NEED FOR PAIN MEDICATION AT THIS TIME. SALINE LOC TO RIGHT FOREARM SITE WITHOUT REDNESS OR EDEMA. DENIES FURTHER NEEDS AT THIS TIME. CL WITHIN REACH. ENCOURAGED TO CALL WITH NEEDS. CONTINUE POC
[2019-11-04 09:11] VITALS: BP 134/61
[2019-11-04 12:41] VITALS: BP 131/60
--- NOTE | 2019-11-04 15:12 | NUR ---
Rehab Note- Received call and fax from Juli Briones with Auth approval for inpatient acute rehab stay. Auth #[id number]. Notified SUSANNA Giraldo of Auth approval. Thank you for this referral! Dede Cardona RN Clinical Liaison, [facility] Rehab
[2019-11-04] MEDS ORDERED: ACETAMINOPHEN500 M1 PO (16:30)
[2019-11-04] MEDS ORDERED: ELIQUIS2.5 MG PO (16:30)
[2019-11-04] MEDS ORDERED: MIRALAX17 GM PO (16:31)
[2019-11-04] MEDS ORDERED: COLACE100 MG PO (16:31)
[2019-11-04] MEDS ORDERED: PROTONIX40 MG PO (16:31)
[2019-11-04] MEDS ORDERED: LIBRIUM5 MG PO (16:31)
[2019-11-04 16:58] VITALS: BP 115/58
--- NOTE | 2019-11-04 17:00 | NUR ---
OT NOTE: PT COMPLETED SUPINE TO SIT WITH MIN A. PT COMPLETED SIT TO STAND USING WALKER WITH MIN A. PT REQUIRED FREQUENT CUES FOR NON WT BEARING ON LE. PT COMPLETED BED TO BSC TSF WITH MIN A. PT COMPLETED TOILETING TASKS WITH MIN A FOR GARMENT MANAGEMENT AND MOD A FOR HYGIENE. 1028-11 OLYA CORBETT COTA
--- NOTE | 2019-11-05 10:31 | MORECARE ---
CASE MANAGEMENT DISCHARGE SUMMARY PATIENT: CLIFF LINDO UNIT: [id number] ADM DATE: 10/23/19 AGE: 74 : 45 SEX: F ROOM/BED: D.2229 AUTHOR: BONILLA,DOC PHYSICIAN: REFERRING PHYSICIAN: MARCELA HERNANDES MD DATE OF SERVICE: 11/05/19 Discharge Plan Patient Name: CLIFF LINDO Facility: [facility]:[place] : 1945 Planned Disposition: Anticipated Discharge Date: Discharge Date: 11/04/2019 Expected LOS: Initial Reviewer: [email or web address] Initial Review Date: 10/31/2019 Generated: 11/05/19 11:31 am DCP- Discharge Planning Updated by [email or web address]: Kristal Herrera on 11/01/19 7:[address] Patient Name: CLIFF LINDO Admission Status: ER Accout number: [id number] Admission Date: 10-23-2019 : 1945 Admission Diagnosis:DISPLACED ARTICULAR FRACTURE OF HEAD OF LEFT FEMUR, INI Attending: MATT HERNANDES Current LOS: 9 Anticipated DC Date: Planned Disposition: Primary Insurance: NOVASYSMCR Discharge Planning Comments: SPOKE WITH PATIENT YESTERDAY AND SHE WOULD LIKE ANY SNF THAT IS IN NETWORK WITH HER INSURANCE. CANDIDA SIGNED. FAXED REFERRAL TO [facility] TO FIND SNF PLACEMENT. WAITING CALL BACK TODAY. Shredder Operator: Kristal Herrera DCP- Discharge Planning Updated by [id number]: Kristal Herrera on 10/30/19 3:[address] Patient Name: CLIFF LINDO Admission Status: ER Accout number: [id number] Admission Date: 10-23-2019 : 1945 Admission Diagnosis:DISPLACED ARTICULAR FRACTURE OF HEAD OF LEFT FEMUR, INI Attending: MATT HERNANDES Current LOS: 7 Anticipated DC Date: Planned Disposition: Primary Insurance: NOVASYSMCR Discharge Planning Comments: CM met with patient at bedside after explaining CM role and obtaining verbal consent. CM discussed availability / needs of home health, REHAB and medical equipment. PATIENT STATES CURRENT WITH [facility] BUT WANTS ME TO COME BACK LATER AND TALK WITH HER. SHE HAS TO USE THE BATHROOM. Shredder Operator: Kristal Herrera Coverage Notice Reviewer: [id number] - Kristal Sharon Notice Issued Date-Time: 11/01/2019 8:42 Notice Type: Patient Choice Letter Notice Delivered To: Patient Relationship to Patient: Linen Controller Name: Delivery Method: HAND - Hand Delivered Sayra Days: Prior Verbal Notification: Recipient Understood Notice: Yes Recipient Signature: Yes Med Rec Note Co-signed by Attending: Coverage Notice Comment: ANY SNF IN [place] THAT IS IN NETWORK WITH HER INSURANCE. FAXED REFERRAL TO [facility]. Last DP export: 11/01/19 7:46 a Patient Name: CLIFF LINDO Page [phone] at 1031 All edits/amendments must be made on the electronic document DICTATION DATE: 11/05/19 1030 MANAGER TRACK: TED 11/05/19 1030 RPT#: [id number] DC DATE:11/04/19 STATUS: DIS IN [id number] [place] [address] END OF REPORT
--- NOTE | 2019-11-06 08:55 | MORECARE ---
CASE MANAGEMENT DISCHARGE SUMMARY PATIENT: CLIFF LINDO UNIT: [id number] ADM DATE: 10/23/19 AGE: 74 : 45 SEX: F ROOM/BED: D.2229 AUTHOR: BONILLA,DOC PHYSICIAN: REFERRING PHYSICIAN: MARCELA HERNANDES MD DATE OF SERVICE: 11/06/19 Discharge Plan Patient Name: CLIFF LINDO Facility: [facility]:[place] : 1945 Planned Disposition: Anticipated Discharge Date: Discharge Date: 11/04/2019 Expected LOS: Initial Reviewer: [email or web address] Initial Review Date: 10/31/2019 Generated: 11/06/19 9:54 am DCP- Discharge Planning Updated by [id number]: Kristal Herrera on 11/01/19 7:[address] Patient Name: CLIFF LINDO Admission Status: ER Accout number: [id number] Admission Date: 10-23-2019 : 1945 Admission Diagnosis:DISPLACED ARTICULAR FRACTURE OF HEAD OF LEFT FEMUR, INI Attending: MATT HERNANDES Current LOS: 9 Anticipated DC Date: Planned Disposition: Primary Insurance: NOVASYSMCR Discharge Planning Comments: SPOKE WITH PATIENT YESTERDAY AND SHE WOULD LIKE ANY SNF THAT IS IN NETWORK WITH HER INSURANCE. CANDIDA SIGNED. FAXED REFERRAL TO [facility] TO FIND SNF PLACEMENT. WAITING CALL BACK TODAY. Lime Spreader: Kristal Herrera DCP- Discharge Planning Updated by [id number]: Kristal Herrera on 10/30/19 3:[address] Patient Name: CLIFF LINDO Admission Status: ER Accout number: [id number] Admission Date: 10-23-2019 : 1945 Admission Diagnosis:DISPLACED ARTICULAR FRACTURE OF HEAD OF LEFT FEMUR, INI Attending: MATT HERNANDES Current LOS: 7 Anticipated DC Date: Planned Disposition: Primary Insurance: NOVASYSMCR Discharge Planning Comments: CM met with patient at bedside after explaining CM role and obtaining verbal consent. CM discussed availability / needs of home health, REHAB and medical equipment. PATIENT STATES CURRENT WITH [facility] BUT WANTS ME TO COME BACK LATER AND TALK WITH HER. SHE HAS TO USE THE BATHROOM. Lime Spreader: Kristal Herrera Coverage Notice Reviewer: [id number] - Kristal Sharon Notice Issued Date-Time: 11/01/2019 8:42 Notice Type: Patient Choice Letter Notice Delivered To: Patient Relationship to Patient: Fleet Salesperson Name: Delivery Method: HAND - Hand Delivered Sayra Days: Prior Verbal Notification: Recipient Understood Notice: Yes Recipient Signature: Yes Med Rec Note Co-signed by Attending: Coverage Notice Comment: ANY SNF IN [place] THAT IS IN NETWORK WITH HER INSURANCE. FAXED REFERRAL TO [facility]. Last DP export: 11/05/19 9:31 a Patient Name: CLIFF LINDO Page [phone] at 0855 All edits/amendments must be made on the electronic document DICTATION DATE: 11/06/19854 ELECTRIC RELAY TESTER: TED 11/06/1955 RPT#: [id number] DC DATE:11/04/19 STATUS: DIS IN [id number] [place] [address] END OF REPORT
== END 2019-11-04 18:42 | DRG 956 ==
LOC: D.ER 17:01 → D.MS 19:29 → D.M3 19:29 → D.MS 10-24 12:14
PROVIDERS: Family Medicine; Orthopaedic Surgery; ADMIT Emergency Medicine; ATTEND Emergency Medicine
PROC: 0QH734Z Insertion of Internal Fixation Device into Left Upper Femur, Percutaneous Approach (ICD-10-PCS; principal; 2019-10-24 08:15)
DX: S72.002A Fracture of unspecified part of neck of left femur, initial encounter for closed fracture (principal); S32.511A Fracture of superior rim of right pubis, initial encounter for closed fracture; F17.213 Nicotine dependence, cigarettes, with withdrawal; E87.1 Hypo-osmolality and hyponatremia; D62 Acute posthemorrhagic anemia; F10.129 Alcohol abuse with intoxication, unspecified; E78.5 Hyperlipidemia, unspecified; W19.XXXA Unspecified fall, initial encounter; I95.9 Hypotension, unspecified; J43.9 Emphysema, unspecified; M19.90 Unspecified osteoarthritis, unspecified site; F41.8 Other specified anxiety disorders; E83.42 Hypomagnesemia

== ENCOUNTER 2019-11-04 18:21 | Inpatient (IN) | payer MEDICARE ==
[~2019-11-04] VITALS: Ht 162.6 cm; Wt 47.6 kg
--- NOTE | ~2019-11-04 | RHP ---
PATIENT: CLIFF LINDO MEDICAL RECORD: [id number] ACCOUNT: [id number] LOCATION:[facility]1110 : 45 ADMISSION DATE: 11/04/19 REHABILITATION HISTORY AND PHYSICAL EXAMINATION POST ADMISSION PHYSICIAN EXAMINATION ADMITTING DIAGNOSIS: Pelvic ring injury. HISTORY OF PRESENT ILLNESS: The patient is a 74-year-old female patient admitted secondary to a left sacral ala fracture anteriorly, which is comminuted and mildly displaced fracture in the right superior pubic ramus. She got an impacted minimally displaced fracture also on the left femoral neck. She was admitted through the Emergency Department on 10/23/2019 after she fell at home. She injured her left hip and pelvis. She was seen in the Emergency Room and found to have a nondisplaced femoral neck fracture as well as pelvic ring fracture involving the left sacral ala and also the right pubic ramus. The patient is complaining of low back and hip pain. She describes it as severe. Extremities has normal pulses. She has no other changes there. The patient was admitted to the facility on 10/11/2019 for multiple falls and acute alcohol intoxication. On 10/23/2019, she presented after another fall. She did have an elevated alcohol level at that time. The patient is awake and conversant, but has a poor recall the day's events. She does say that she tripped and fell over her own feet. She does reports she was told that she did have a low sodium in the past and that she was supposed to be taking salt pills upon her discharge. Orthopedic was consulted in the Emergency Department. The patient was admitted for further evaluation. She went to the OR on 10/29. She had a percutaneous screw fixation of left femoral neck fracture. Her postop has been complicated because of the acute blood loss anemia. She received 2 units packed red blood cells. She has also had a little bit of a postop temperature. Her blood pressure has been somewhat labile also. She has also had hyponatremia with sodium of 127. Previously, she lived with her son, was independent with ADLs and mobility using a rolling walker at times. Currently, she is mild to max assist for ADLs and mobility secondary nonweightbearing status on her left lower extremity and also pain control. She would like to return home after her stay here in the rehabilitation. Comorbidities include weakness, multiple falls, fracture of the pubic ramus, displaced fracture of the left femoral neck, hypotension, hyponatremia, anemia, alcohol abuse, nicotine dependence and withdrawal, hypoxia, labile blood pressure. PAST MEDICAL HISTORY: Significant for essential tremor, cataracts, she has got a history of dyslipidemia, emphysema, got a history of compression fractures, multiple falls. PAST SURGICAL HISTORY: Includes hysterectomy. She has had a history of shoulder surgery and hip surgery. ALLERGIES: No known drug allergies. CURRENT MEDICATIONS: Thiamine, she is 100 mg daily; she is on Zoloft 25 mg daily; polyethylene glycol 17 grams in 8 ounces of water daily; she is a Nicoderm patch 14 mg every 24 hours; she is on multivitamin daily; folic acid daily; Protonix 40 mg b.i.d.; she is on primidone 250 mg at bedtime; Colace 100 mg b.i.d.; Diazepam 5 mg b.i.d.; chlordiazepoxide 5 mg t.i.d.; Eliquis 2.5 mg HISTORY AND PHYSICAL [id number] CLIFF LINDO b.i.d.; [place] 5/325 one tab every 6 hours p.r.n., and Tylenol as needed. HABITS: Does have a history of tobacco use, alcohol use and also marijuana use. FAMILY HISTORY: Noncontributory. SOCIAL HISTORY: The patient hopes to return back home, get back to her prior level of functioning. REVIEW OF SYSTEMS: GENERAL: Does complain of weakness and fatigue. HEENT: She denies cold, cough or congestion. CARDIOVASCULAR: Denies any chest pain. PHYSICAL EXAMINATION: VITAL SIGNS: Stable, afebrile. GENERAL: A well-developed female, in no distress upon exam. HEENT: Normocephalic and atraumatic. Mucosa moist. NECK: Supple. No lymphadenopathy. LUNGS: Clear in upper carrera. No wheezing, rhonchi or rales. HEART: Regular rate and rhythm. No murmurs, rubs or gallops. ABDOMEN: Soft, benign, and nondistended. Positive bowel sounds times 4. She does have noted hepatomegaly. EXTREMITIES: Does have postop area that appears within normal limits at this time. NEUROLOGIC: She has proximal muscle weakness. LABORATORY DATA: Her white count was 6.4, H&H of 9.9 and 30.2 and platelet count of 386. Her sodium is 131, potassium 4.1, BUN and creatinine of 21 and 0.7 and blood sugar was noted to be 96. IMPRESSION: This is a 74-year-old female patient admitted to the rehab with a working diagnosis orthopedic in nature with impacted femoral neck fracture and a pubic ramus fracture. The patient has potential to make improvement. We instituted the following multidisciplinary therapies, including not limited to physical, occupational, respiratory, speech, nutritional services, prosthetics and orthotics. Given her complex medical condition and risks for more complications, rehabilitation services cannot be provided at a low level of care such a long term facility. PLAN: 1. Admit to [facility] for inpatient therapy to include the following disciplines; A. Physical therapy to improve gait, all transfer skills and bed mobility to a modified independent level. B. Occupational therapy to improve activities of daily living. C. Case management to help with discharge planning and placement options. D. Nutrition to assist with nutritional needs. E. Rehabilitation nursing to assist in monitoring the patient's underlying medical conditions and to assist with any type of bowel or bladder management. 2. The patient's current medication and medical care will be continued. 3. Placed on standard fall precautions. 4. The patient's estimated length of stay is approximately 7-10 days. 5. We will discuss this patient during care team staff meeting this week. Continue on home medicines where appropriate. Watch for any signs of DT. She HISTORY AND PHYSICAL [id number] CLIFF LINDO is on anticoagulants at this time and also GI prophylaxis and we will see again in the morning. TRANSINT:[id number] Voice Confirmation ID: [id number] DOCUMENT ID: [id number] ALANA notes whether there has been none or any medical/functional change since admission: - No change since preadmission screen. ALANA attests patient continues to be appropriate for IRF: - Continues to be appropriate. MARCELA HERNANDES MD CC: [id number] DICTATION DATE: 11/05/19 1044 DELINQUENT NOTICE MACHINE OPERATOR: 11/05/19 1307 ADM IN [facility] [address] [place] [address]
[~2019-11-04 18:21] MED LIST changes: +COLACE100 MG PO; +LIBRIUM5 MG PO; +MIRALAX17 GM PO; +PROTONIX40 MG PO
--- NOTE | 2019-11-04 19:37 | NUR ---
PT IN BED, NO NEEDS NOTED, SAFETY PRECAUTIONS IN PLACE,RESPIRATIONS EVEN/UNLABORED, FLUIDS/CALL LIGHT WITHIN REACH
[2019-11-04 20:00] VITALS: BP 155/84
[2019-11-04 23:20] VITALS: BP 137/54; BMI 18.0
[2019-11-05 07:16] LABS: CALC OSMOLALITY 265 mosm/kg (275-300); CALCIUM 8.9 mg/dL (8.5-10.1); CARBON DIOXIDE 26.4 mmol/L (21.0-32.0); CHLORIDE - SERUM 99 mmol/L (98-107); CREATININE - SERUM 0.7 mg/dL (0.6-1.3); GLUCOSE 96 mg/dL (74-106); POTASSIUM - SERUM 4.1 mmol/L (3.5-5.1); SODIUM 131 mmol/L (136-145); UREA NITROGEN 21 mg/dL (7-18); eGFR NON AFRICAN AMERICAN 87 mL/min (90-120)
[2019-11-05 07:48] LABS: BASOPHILS 0.5 % (0-2); EOSINOPHILS 2.5 % (0-7); HEMATOCRIT 30.7 % (36.0-48.0); HEMOGLOBIN 9.9 g/dL (12-16); IMMATURE GRANULOCYTES 0.5 % (0-5); LYMPHOCYTES 18.7 % (15-50); MCH 30.9 pg (26.0-34.0); MCHC 32.2 g/dL (31.0-37.0); MCV 95.9 fL (80.0-100.0); MEAN PLATELET VOLUME 8.6 fL (7.4-10.4); MONOCYTES 12.6 % (2-11); NEUTROPHILS 65.2 % (40-80); PLATELET COUNT 386 10x3/uL (130-400); RDW 13.7 % (11.5-14.5); WBC 6.4 10x3/uL (4.8-10.8)
[2019-11-05 08:10] VITALS: BP 136/65
--- NOTE | 2019-11-05 09:05 | NUR ---
SHE IS ALERT, TALKING. TAKES HER MEDICATIONS CRUSHED IN PUDDING. SHE HAS PROBLEMS WITH LARGE PILLS. SHE HAS A DRESSING TO HER UPPER THIGH, CLEAN, DRY, AND INTACT. THE CALL LIGHT IS WITHIN REACH.
[2019-11-05 12:24] VITALS: Ht 162.6 cm; Wt 47.6 kg
[2019-11-05 19:23] VITALS: BP 131/52
--- NOTE | 2019-11-05 19:37 | NUR ---
PT IN BED, NO IMMEDIATE NEEDS NOTED, RESPIRATIONS EVEN/UNLABORED, SAFETY PRECAUTIONS IN PLACE, FLUIDS/CALL LIGHT WITHIN REACH
--- NOTE | 2019-11-06 02:22 | NUR ---
PT ASLEEP, AROUSES EASILY TO VOICE, NO IMMEDIATE NEEDS NOTED, RESPIRATIONS EVEN/UNLABORED, PT SAFETY PRECAUTIONS IN PLACE, FLUIDS/CALL LIGHT WITHIN REACH
[2019-11-06 07:47] LABS: ANION GAP 8.5 mmol/L (8-16); CALCIUM 8.5 mg/dL (8.5-10.1); CARBON DIOXIDE 27.9 mmol/L (21.0-32.0); CREATININE - SERUM 0.8 mg/dL (0.6-1.3); POTASSIUM - SERUM 4.4 mmol/L (3.5-5.1)
[2019-11-06 07:48] LABS: BASOPHILS 0.7 % (0-2); EOSINOPHILS 2.4 % (0-7); HEMATOCRIT 30.4 % (36.0-48.0); HEMOGLOBIN 9.8 g/dL (12-16); IMMATURE GRANULOCYTES 0.7 % (0-5); LYMPHOCYTES 17.9 % (15-50); MCHC 32.2 g/dL (31.0-37.0); MCV 96.2 fL (80.0-100.0); MEAN PLATELET VOLUME 8.5 fL (7.4-10.4); MONOCYTES 11.7 % (2-11); NEUTROPHILS 66.6 % (40-80); PLATELET COUNT 390 10x3/uL (130-400); RBC 3.16 10x6/uL (4.00-5.40); RDW 13.8 % (11.5-14.5); WBC 5.8 10x3/uL (4.8-10.8)
--- NOTE | 2019-11-06 07:56 | NUR ---
PT RESTING IN BED WITH EYES OPEN CALL LIGHT IN REACH WILL MONITER
[2019-11-06 08:00] VITALS: BP 137/63
--- NOTE | 2019-11-06 10:26 | NUR ---
I have reviewed this patient and I concur with the Shift Assessment completed by the Licensed Practical Nurse today this shift.
--- NOTE | 2019-11-06 14:46 | NUR ---
CARE TEAM MEETING: PATIENT IS NEW TO UNIT FROM THE ACUTE FLOOR. PATIENT PCP IS DR. HSIEH. SHE IS A CLIENT OF [facility]. PATIENT PLANS TO DISCHARGE BACK TO HER HOME. PATIENT WILL BE RA AT NEXT MEETING. WILL CONTINUE TO FOLLOW WITH PATIENT.
--- NOTE | 2019-11-06 15:00 | NUR ---
PT RESTING IN BED WITH EYES OPEN CALL LIGHT IN REACH WILL MONITER
[2019-11-06 19:52] VITALS: BP 127/62
--- NOTE | 2019-11-06 23:58 | NUR ---
PT REQUESTED AND GIVEN ICE PACK FOR LEFT LEG PAIN, RESPIRATION EVEN/UNLABORED, NO NEEDS NOTED, PT SAFETY PRECAUTIONS IN PLACE, FLUIDS/CALL LIGHT WITHIN REACH
--- NOTE | 2019-11-07 04:26 | NUR ---
PRN NORCO GIVEN, 10 OF 10 LEG/HIP PAIN
--- NOTE | 2019-11-07 08:00 | NUR ---
PT RESTING IN BED WITH EYES OPEN CALL LIGHT IN REACH NO PROBLEMS WILL MONITER
[2019-11-07 08:10] VITALS: BP 136/55
--- NOTE | 2019-11-07 17:55 | NUR ---
PT RESTING IN BED WITH EYES OPEN CALL LIGHT IN REACH WILL MONITER
--- NOTE | 2019-11-07 19:21 | NUR ---
PT IN BED WATCHING TV, RESPIRATIONS EVEN/UNLABORED, NO IMMEDIATE NEEDS NOTED, FLUIDS/CALL LIGHT WITHIN REACH
[2019-11-07 19:34] VITALS: BP 133/58
--- NOTE | 2019-11-08 01:26 | NUR ---
PT IN BED ASLEEP, AROUSES EASILY TO VOICE, RESPIRATIONS EVEN/UNLABORED, NO IMMEDIATE NEEDS NOTED, FLUIDS/CALL LIGHT WITHIN REACH
--- NOTE | 2019-11-08 05:14 | NUR ---
PRN NORCO GIVEN FOR 10 OF 10 LEG PAIN
[2019-11-08 07:57] LABS: CALC OSMOLALITY 271 mosm/kg (275-300); CALCIUM 8.4 mg/dL (8.5-10.1); CARBON DIOXIDE 23.9 mmol/L (21.0-32.0); CHLORIDE - SERUM 99 mmol/L (98-107); CREATININE - SERUM 0.7 mg/dL (0.6-1.3); GLUCOSE 95 mg/dL (74-106); POTASSIUM - SERUM 4.1 mmol/L (3.5-5.1); SODIUM 132 mmol/L (136-145); UREA NITROGEN 33 mg/dL (7-18); eGFR NON AFRICAN AMERICAN 87 mL/min (90-120)
[2019-11-08 08:05] LABS: BASOPHILS 0.3 % (0-2); EOSINOPHILS 1.9 % (0-7); HEMATOCRIT 27.8 % (36.0-48.0); IMMATURE GRANULOCYTES 0.5 % (0-5); MCH 30.9 pg (26.0-34.0); MCHC 32.4 g/dL (31.0-37.0); MCV 95.5 fL (80.0-100.0); MEAN PLATELET VOLUME 8.5 fL (7.4-10.4); MONOCYTES 11.1 % (2-11); NEUTROPHILS 62.2 % (40-80); PLATELET COUNT 365 10x3/uL (130-400); RBC 2.91 10x6/uL (4.00-5.40); RDW 13.8 % (11.5-14.5); WBC 5.8 10x3/uL (4.8-10.8)
--- NOTE | 2019-11-08 08:30 | NUR ---
SHE IS ALERT, TALKING. NO C/O PAIN. LEFT HIP HAS POLINA, NO REDNESS. THE CALL LIGHT IS WITHIN REACH AND BED ALARM ON.
--- NOTE | 2019-11-08 15:02 | NUR ---
CLINICAL UPDATES FAXED TO [facility] , , AUTH. # [id number] WITH FAX CONFORMATION RECIEVED. WILL CONTINUE TO FOLLOW WITH PATIENT.
--- NOTE | 2019-11-08 16:12 | NUR ---
THE POLINA REMOVED FROM THE LEFT HIP, PER LIBIA SECOTO, DR. BYNUM'S NURSE. THE CALL LIGHT IS WITHIN REACH.
--- NOTE | 2019-11-08 19:54 | NUR ---
PATIENT USED CALL LIGHT FOR ASSIST. PATIENT MINIMAL ASSIST INTO & OUT OF BED & WHEELCHAIR. VOID ONLY. RETURNED TO LOW BED. CALL LIGHT WITHIN REACH. ALARM WAIVER SIGNED. WILL CONTINUE TO MONITOR.
[2019-11-08 19:56] VITALS: BP 160/64
--- NOTE | 2019-11-08 20:00 | NUR ---
PATIENT RECEIVED SITTING UP IN BED. ASSESSMENT & CALL LIGHT WITHIN REACH. CALL LIGHT WITHIN REACH. WILL CONTINUE TO MONITOR.
--- NOTE | 2019-11-08 20:30 | NUR ---
PATIENT GIVEN MEDICATIONS IN PUDDING. PATIENT TOILETED & HAD VOID ONLY. RETURNED TO LOW BED. CALL LIGHT WITHIN REACH. WILL CONTINUE TO MONITOR.
--- NOTE | 2019-11-09 00:08 | NUR ---
I have reviewed this patient and I concur with the Shift Assessment completed by the Licensed Practical Nurse today this shift.
--- NOTE | 2019-11-09 00:41 | NUR ---
PATIENT AWAKE. MINIMAL ASSIST INTO & OUT OF WHEELCHAIR. STANDBY ASSIST WITH TOILETING. VOID ONLY. RETURNED TO LOW BED. CALL LIGHT WITHIN REACH. WILL CONTINUE TO MONITOR.
--- NOTE | 2019-11-09 03:10 | NUR ---
ASSISTED PT TO RESTROOM AND BACK TO BED WITH MIN ASSIST. MODERATE VOID. PERICARE AND HAND HYGIENE PERFORMED INDEPENDENTLY. CALL LIGHT AND WATER WITHIN REACH. FALL PRECAUTIONS IN PLACE. CPOC
--- NOTE | 2019-11-09 03:43 | NUR ---
PATIENT AWAKE. APPLYING LOTION TO ARMS. BED LOW. CALL LIGHT WITHIN REACH. ICE WATER GIVEN. WILL CONTINUE TO MONITOR.
--- NOTE | 2019-11-09 05:03 | NUR ---
PATIENT USED CALL LIGHT FOR ASSIST. MINIMAL ASSIST INTO & OUT OF BED & WHEELCHAIR. PATIENT MINIAL ASSIST ONTO & OFF TOILET. VOID ONLY. BED LOW. CALL LIGHT WITHIN REACH. WILL CONTINUE TO MONITOR.
[2019-11-09 07:00] VITALS: BP 116/55
--- NOTE | 2019-11-09 08:06 | NUR ---
SHE IS ALERT, TALKING. TOOK THE "BIG" PILLS CRUSHES IN PUDDING. SHE GETTING OUT OF THE BED TO THE BATHROOM USING A WHEELCHAIR. THE CALL LIGHT IS WITHIN REACH AND THE BED ALARM IS ON.
[2019-11-09 19:51] VITALS: BP 131/53
--- NOTE | 2019-11-09 20:00 | NUR ---
PATIENT RECEIVED SITTING UP IN BED WATCHING TV. ASSESSMENT & VITAL SIGNS DONE. NO C/O PAIN OR DISTRESS. BED LOW. CALL LIGHT & BEDSIDE TABLE WITHIN REACH. WILL CONTINUE TO MONITOR.
--- NOTE | 2019-11-10 00:43 | NUR ---
PATIENT USED CALL LIGHT FOR ASSIST. PATIENT STANDBY ASSIST ONTO & OFF OF COMMODE & IN & OUT OF WHEEELCHAIR. VOID ONLY. RETURNED TO LOW BED. CALL LIGHT WITHIN REACH. WILL CONTINUE TO MONITOR.
--- NOTE | 2019-11-10 02:40 | NUR ---
PATIENT STANDBY ASSIST INTO & OUT OF BED, ON & OFF COMMODE. PATIENT INDEPENDENT CLEANING SELF. RETURNED TO LOW BED. CALL LIGHT WITHIN REACH. WILL CONTINUE TO MONITOR.
[2019-11-10 07:33] VITALS: BP 118/56
--- NOTE | 2019-11-10 08:24 | NUR ---
ASSISSTED PATIENT TO THE BEDPAN. PLACED PATIENT IN CLEAN CLOTHES AND IN THE WHEELCHAIR. DELIVERED BREAKFAST TRAY TO THE BEDSIDE TABLE
[2019-11-10 19:50] VITALS: BP 142/63
--- NOTE | 2019-11-10 20:00 | NUR ---
PATIENT RECEIVED LAYING IN BED WATCHING TV. ASSESSMENT & VITAL SIGNS DONE. PATIENT STANDBY ASSIST IN & OUT OF BED. STANDBY ON & OFF COMMODE. VOID ONLY. RETURNED TO LOW BED. CALL LIGHT WITHIN REACH. WILL CONTINUE TO MONITOR.
--- NOTE | 2019-11-11 01:21 | NUR ---
PATIENT USED CALL LIGHT FOR ASSIST. PATIENT STANDBY INTO & OUT OF BED & WHEELCHAIR. PATIENT STANDBY ONTO & OFF COMMODE. VOID ONLY. BED LOW. CALL LIGHT WITHIN REACH. WILL CONTINUE TO MONITOR.
--- NOTE | 2019-11-11 04:25 | NUR ---
PATIENT USED CALL LIGHT FOR ASSIST. PATIENT STANDBY ASSIST TO BATHROOM. PATIENT RETURNED BACK TO LOW BED. CALL LIGHT WITHIN REACH. WILL CONTINUE TO MONITOR.
[2019-11-11 06:31] LABS: BASOPHILS 0.2 % (0-2); EOSINOPHILS 1.5 % (0-7); HEMATOCRIT 26.7 % (36.0-48.0); HEMOGLOBIN 8.4 g/dL (12-16); IMMATURE GRANULOCYTES 0.3 % (0-5); LYMPHOCYTES 19.8 % (15-50); MCH 30.9 pg (26.0-34.0); MCHC 31.5 g/dL (31.0-37.0); MCV 98.2 fL (80.0-100.0); MEAN PLATELET VOLUME 8.9 fL (7.4-10.4); MONOCYTES 10.4 % (2-11); NEUTROPHILS 67.8 % (40-80); PLATELET COUNT 310 10x3/uL (130-400); RBC 2.72 10x6/uL (4.00-5.40); WBC 6.5 10x3/uL (4.8-10.8)
[2019-11-11 06:33] LABS: ANION GAP 11.5 mmol/L (8-16); CALCIUM 8.3 mg/dL (8.5-10.1); CARBON DIOXIDE 23.9 mmol/L (21.0-32.0); CREATININE - SERUM 0.8 mg/dL (0.6-1.3); POTASSIUM - SERUM 4.4 mmol/L (3.5-5.1)
--- NOTE | 2019-11-11 12:52 | NUR ---
Nutrition Follow-up: Diet: Regular + Ensure TID PO intake: 100% x last 7 meals. States that her appetite is "excellent." She is writing in food preferences on menu. States that she is drinking Ensure. Last BM: 11/09/19. Wt: 105# (11/05/19) Meds noted: megace (started 11/05/19), miralax. Labs noted: Na 133(L), Glu 125 Recommend continue current diet, oral nutrition supplements, and appetite stimulant. RD following.
[2019-11-11 19:25] VITALS: BP 144/64
--- NOTE | 2019-11-11 20:00 | NUR ---
AWAKE AND ALERT. RESTING IN BED WITH RESPIRATIONS UNLABORED. UP TO BATHROOM AND BACK TO BED. NO ACUTE DISTRESS NOTED. CALL LIGHT IN REACH.
--- NOTE | 2019-11-12 02:42 | NUR ---
SLEEPING WITH RESPIRATIONS UNLABORED. NO DISTRESS NOTED.
--- NOTE | 2019-11-12 05:01 | NUR ---
QUIET HOURS. NO ACUTE CHANGES IN CONDITION THIS SHIFT. RESTING IN BED WITH NO DISTRESS NOTED.
--- NOTE | 2019-11-12 07:43 | NUR ---
PT RESTING IN BED WITH EYES OPEN CALL LIGHT IN REACH WILL MONITER
[2019-11-12 08:01] VITALS: BP 131/61
--- NOTE | 2019-11-12 18:17 | NUR ---
PT RESTING IN BED WITH EYES OPEN CALL LIGHT IN REACH NO PROBLEMS WILL MONITER
--- NOTE | 2019-11-12 19:32 | NUR ---
AWAKE AND ALERT. RESTING IN BED WITH RESPIRATIONS UNLABORED. STATES SHE HAD A GOOD DAY AND HER APPETITE WAS SO MUCH BETTER SINCE SHE HAS BEEN ON MEGACE. NO ACUTE DISTRESS NOTED. CALL LIGHT IN REACH.
[2019-11-12 19:37] VITALS: BP 164/57
--- NOTE | 2019-11-13 01:10 | NUR ---
RESTING QUIETLY WITH RESPIRATIONS UNLABORED. NO DISTRESS NOTED.
--- NOTE | 2019-11-13 03:11 | NUR ---
AWAKE IN BED WATCHING TV. DENIES NEEDS OR DISCOMFORTS AT THIS TIME.
--- NOTE | 2019-11-13 05:15 | NUR ---
QUIET HOURS. NO ACUTE CHANGES IN CONDITION THIS SHIFT. RESTING IN BED WITH NO DISTRESS NOTED.
[2019-11-13 06:32] LABS: BASOPHILS 0.3 % (0-2); EOSINOPHILS 1.1 % (0-7); HEMATOCRIT 28.1 % (36.0-48.0); HEMOGLOBIN 8.9 g/dL (12-16); IMMATURE GRANULOCYTES 0.4 % (0-5); LYMPHOCYTES 18.2 % (15-50); MCH 30.9 pg (26.0-34.0); MCHC 31.7 g/dL (31.0-37.0); MCV 97.6 fL (80.0-100.0); MEAN PLATELET VOLUME 8.9 fL (7.4-10.4); MONOCYTES 9.3 % (2-11); NEUTROPHILS 70.7 % (40-80); PLATELET COUNT 282 10x3/uL (130-400); RBC 2.88 10x6/uL (4.00-5.40); RDW 14.1 % (11.5-14.5); WBC 7.4 10x3/uL (4.8-10.8)
[2019-11-13 06:37] LABS: ANION GAP 10.9 mmol/L (8-16); CALCIUM 8.6 mg/dL (8.5-10.1); CARBON DIOXIDE 25.9 mmol/L (21.0-32.0); CREATININE - SERUM 0.9 mg/dL (0.6-1.3); POTASSIUM - SERUM 4.8 mmol/L (3.5-5.1)
[2019-11-13 08:00] VITALS: BP 142/84
--- NOTE | 2019-11-13 08:38 | NUR ---
SHE IS IN THE GYM, TOOK MEDICATIONS WITH PUDDING, CRUSHED. NO NEW ISSUES. PRN GIVEN FOR PAIN. SHE HAS SOME THERAPY LEFT TO DO.
--- NOTE | 2019-11-13 10:49 | NUR ---
LATE ENTRY FOR 11/12/19 CLINICAL UPDATES FAXED TO JC AT , AUTH. # [id number], WITH FAX CONFORMATION RECIEVED
--- NOTE | 2019-11-13 13:41 | NUR ---
CARE TEAM MEETING: PATIENT IS DOING WELL IN THERAPY AND WILL DC IN AM. WILL CONTINUE TO FOLLOW WITH PATIENT.
[2019-11-13 19:08] VITALS: BP 138/54
--- NOTE | 2019-11-13 20:00 | NUR ---
PATIENT RECEIVED SITTING UP IN BED WATCHING TV. ASSESSMENT & VITAL SIGNS DONE. BED LOW. CALL LIGHT WITHIN REACH. WILL CONTINUE TO MONITOR.
--- NOTE | 2019-11-14 02:32 | NUR ---
PATIENT USED CALL LIGHT FOR ASSIST. C/O OF PAIN LEVEL 9 TO BOTH LEGS. NORCO GIVEN PER ORDER. BED LOW. CALL LIGHT WITHIN REACH. WILL CONTINUE TO MONITOR.
[2019-11-14 07:58] VITALS: BP 123/63
[2019-11-14] MEDS ORDERED: NORCO-7.5 PO (08:31)
[2019-11-14] MEDS ORDERED: MEGACE400 MG/10 PO (08:32)
--- NOTE | 2019-11-14 09:14 | NUR ---
SHE IS READY TO GO HOME TODAY. SHE IS GOING TO THE BATHROOM BY HERSELF WITH THE WHEELCHAIR. PRN GIVEN FOR PAIN. THE CALL LIGHT IS WITHIN REACH AND THE BED ALARM IS ON.
--- NOTE | 2019-11-14 09:37 | NUR ---
PATIENT DISCHARGING HOME TODAY WITH FAMILY. [facility] WILL RESUME THERAPY AT HOME. CANDIDA SIGNED, IMM SERVED AND EXPLAINED, ONE GIVEN TO PATIENT AND ONE FILED IN CHART. NO COMPARE DATA REVIEWED PATIENT IS A CLIENT OF [facility] AND WISHES TO CONTINUE WITH THEIR SERVICE. MICHAEL HAS DELIVERED A WHEELCHAIR. DR. HSIEH 11/21/19 @ 10:00, DR. JOLANTA MICHELLE 12/06/19 @ 9:00. DC INSTRUCTIONS HAVE BEEN FAXED TO PCP, HOME HEALTH, PATIENT INSURANCE ( [facility], AUTH. # [id number] , FAXED TO , WITH FAX CONFORMATION RECIEVED) AND REVIEWED WITH PATIENT PER PRIMARY NURSE.
--- NOTE | 2019-11-14 13:30 | NUR ---
EDUCATED HER ABOUT HER MEDICATIONS, ANSWERED QUESTIONS ABOUT HER MEDICATIONS AND FOLLOW UP APPOINTMENTS. SHE SIGNED HER PAPAERWORK, SHE IS WAITING FOR SON TO GET HER, LEFT VIA A WHEELCHAIR TO THE FRONT DOOR.
== END 2019-11-14 13:35 | disposition home health service (06) | DRG 560 ==
LOC: D.REHAB 18:21
PROVIDERS: ADMIT Emergency Medicine; ATTEND Emergency Medicine
DX: S32.511D Fracture of superior rim of right pubis, subsequent encounter for fracture with routine healing (principal); E87.1 Hypo-osmolality and hyponatremia; F17.203 Nicotine dependence unspecified, with withdrawal; D62 Acute posthemorrhagic anemia; W19.XXXD Unspecified fall, subsequent encounter; S72.002D Fracture of unspecified part of neck of left femur, subsequent encounter for closed fracture with routine healing; R53.1 Weakness; I95.9 Hypotension, unspecified; D64.9 Anemia, unspecified; R09.02 Hypoxemia; F10.129 Alcohol abuse with intoxication, unspecified; F41.8 Other specified anxiety disorders; M19.90 Unspecified osteoarthritis, unspecified site; J43.9 Emphysema, unspecified; E83.42 Hypomagnesemia

== ENCOUNTER 2020-04-12 09:45 | Inpatient (IN) | payer OTHER ==
[~2020-04-12] VITALS: Ht 162.6 cm; Wt 40.8 kg
[2020-04-12] VITALS (7 sets, daily range): BP systolic 138–154; BP diastolic 69–77; BMI 15.4
[~2020-04-12 09:45] MED LIST changes: +NORCO-7.5 PO
--- NOTE | 2020-04-12 09:56 | NUR ---
PATIENT PLACED IN GOWN AND ASSISTED TO POSITION OF COMFORT.
[2020-04-12 10:14] LABS: BASOPHILS 0.2 % (0-2); EOSINOPHILS 0.4 % (0-7); HEMATOCRIT 27.7 % (36.0-48.0); HEMOGLOBIN 9.2 g/dL (12-16); IMMATURE GRANULOCYTES 1.3 % (0-5); LYMPHOCYTE ABS# 0.87 10x3/uL (1.18-3.74); LYMPHOCYTES 8.8 % (15-50); MCHC 33.2 g/dL (31.0-37.0); MCV 99.3 fL (80.0-100.0); MEAN PLATELET VOLUME 7.7 fL (7.4-10.4); MONOCYTES 9.4 % (2-11); NEUTROPHIL ABS# 7.88 10x3/uL (1.56-6.13); NEUTROPHILS 79.9 % (40-80); PLATELET COUNT 242 10x3/uL (130-400); RBC 2.79 10x6/uL (4.00-5.40); RDW 12.4 % (11.5-14.5); WBC 9.9 10x3/uL (4.8-10.8)
--- NOTE | 2020-04-12 10:14 | NUR ---
RADIOLOGY AT BEDSIDE FOR X RAYS.
[2020-04-12 10:21] LABS: APTT 35.7 SECONDS (22.8-39.4); INR 1.27 (0.85-1.17); PROTIME 14.8 SECONDS (11.6-15.0)
[2020-04-12 10:45] LABS: CALC OSMOLALITY 261 mosm/kg (275-300); CALCIUM 8.3 mg/dL (8.5-10.1); CARBON DIOXIDE 19.2 mmol/L (21.0-32.0); CHLORIDE - SERUM 90 mmol/L (98-107); CREATININE - SERUM 1.4 mg/dL (0.6-1.3); GLUCOSE 96 mg/dL (74-106); POTASSIUM - SERUM 4.1 mmol/L (3.5-5.1); SODIUM 128 mmol/L (136-145); UREA NITROGEN 26 mg/dL (7-18); eGFR NON AFRICAN AMERICAN 39 mL/min (90-120)
[2020-04-12 11:14] LABS: ALBUMIN 2.5 g/dL (3.4-5.0); ALKALINE PHOSPHATASE 147 U/L (30-120); ALT (SGPT) 54 U/L (10-68); BILIRUBIN - TOTAL 0.65 mg/dL (0.2-1.3); CKMB 0.6 U/L (0.0-3.6); CREATINE KINASE 23 UL (21-215); PRO BNP 345 pg/mL (0-125); PROTEIN - SERUM 6.9 g/dL (6.4-8.2); TROPONIN-I < 0.017 ng/mL (0.000-0.060)
--- NOTE | 2020-04-12 12:10 | NUR ---
PATIENT CLEANED OF STOOL, NEW BRIEF APPLIED, NEW SOCKS AND BLANKET APPLIED.
--- NOTE | 2020-04-12 12:30 | NUR ---
DR WOODS AT BEDSIDE.
--- NOTE | 2020-04-12 13:32 | NUR ---
PATIENT ASSISTED TO POSITION OF COMFORT.
--- NOTE | 2020-04-12 16:43 | NUR ---
PATIENT BRIEF CLEANED AND TAKEN TO SURGERY BY OR TEAM.
--- NOTE | 2020-04-12 19:04 | NUR ---
ADDITIONAL ASSESSMENT; LT WRIST IS ALSO WRAPPED WITH MERNA BAND. THUMB WITH CAST PADDING.
--- NOTE | 2020-04-12 19:16 | NUR ---
REPORT FROM [facility]. ASSUMING CARE AT THIS TIME.
--- NOTE | 2020-04-12 20:19 | NUR ---
PATIENT AMB WITH STEADY GAIT TO AND FROM BATHROOM. NAD NOTED AND A&OX4.
[2020-04-13] VITALS (7 sets, daily range): BP systolic 104–140; BP diastolic 50–65
--- NOTE | 2020-04-13 07:12 | OP ---
PATIENT NAME: CLIFF LINDO MEDICAL RECORD: [id number] :45 LOCATION:D. D.1208 ADMISSION DATE:04/12/20 SURGEON: MARY KAY BURRIS DO DATE OF OPERATION: 04/12/2020 PROCEDURE PERFORMED: Left reverse total shoulder arthroplasty. PREOPERATIVE DIAGNOSIS: Left humeral head fracture. POSTOPERATIVE DIAGNOSIS: Left humeral head fracture. INDICATIONS: Ms. Lindo is a 74-year-old female, who fell about 10 days ago. She reports she was unable to come to the clinic to get checked out due to the snow and she came to the ER today. She had bruising. She has a base of the thumb fracture as well, metacarpal, it was nondisplaced and she fractured through the humeral head. It had shifted medially and inferiorly. Due to that fact I told her we would need to fix it and a reverse total shoulder would be the best option for her to get her moving right away. She was okay with that and she signed consent. She was aware of the risks and benefits of the procedure including infection, bleeding, fracture, need for further surgery, continued pain, blood clots, failure of implants, dislocation and she signed the consent. SURGEON: MARY KAY BURRIS DO DESCRIPTION OF PROCEDURE: The patient was taken to the operative suite, laid in supine position, given general anesthetic and LMA was placed. She was then moved over to the OR bed and positioned in the beach chair position and given 900 mg of clindamycin. The left shoulder was prepped and draped in sterile fashion. Timeout was performed. Everyone was in agreeance with the correct side, site, patient and procedure. I then made an incision over the deltopectoral interval, made careful dissection down to the humeral head. I sized the humerus. I tied the long head of the biceps tendon to the pec after I release part of the pec and then took the interval up into the shoulder joint. I then tagged the subscapularis and peeled it off the humerus. I then removed the humeral head as it fractured right at the surgical neck and I removed it. We then exposed the glenoid, removed the labrum, put a centering pin in and reamed out the glenoid, impacted in the baseplate for the glenosphere, put in a 30 screw for the standard screw and then two 25 and a 20 in the superior anterior, inferior, posterior two 25 and the posterior superior was a 20 locking screws. I then impacted on the glenosphere and then exposed the humerus, reamed and then broached to 13. I trialled a +3 tray, it fit very well, had good tension on the deltoid and conjoined tendon, did not dislocate easily. I then dislocated that and removed the trials and put in the actual implants and put a retention poly in. She had good range of motion and there was no shucking, had good tension on the conjoined tendon as well as the deltoid fibers. We then irrigated with 10% povidine iodine with 500 mL of normal saline solution, let it sit for a couple of minutes and irrigated out with a liter of normal saline proximally and coagulated any bleeding with Aquamantys. I then put in zaire, vancomycin and tobramycin powder. Jose Delacruz, certified surgical heel sprayer first then closed the skin after I put a drain in and exited posteriorly. He closed the skin with 2-0 Vicryl in interrupted fashion, 4-0 Monocryl ran the skin and Prineo glue on the skin. Dressed with Telfa and Tegaderm. She was then put in also a thumb spica splint, awakened and taken to recovery in stable condition. OPERATIVE REPORT [id number] CLIFF LINDO BLOOD LOSS: Minimal. COMPLICATIONS: None. TRANSINT:[id number] Voice Confirmation ID: [id number] DOCUMENT ID: [id number] MARY KAY BURRIS DO at 0712 CC: [id number] DICTATION DATE: 04/12/201849 DRIVE TESTER: 04/13/20 0138 ADM IN [facility] [address] [place] [id number]
--- NOTE | 2020-04-13 08:04 | NUR ---
PT SEEN AND ASSESSED. STATES PAIN 2/10 AT PRESENT. LEFT SHOULDER DRESSING CLEAN DRY AND INTACT WITH ROSE DRAIN COMPRESSED. LEFT ARM IN SLING. BILAT SCDS ON. INSTRUCTED/ENCOURAGED FOR INCENTIVE SPIROMETRY-PULLED 500CC. CALL LIGHT IN REACH
[2020-04-13 08:17] LABS: INR 1.23 (0.85-1.17); PROTIME 14.3 SECONDS (11.6-15.0)
[2020-04-13 08:18] LABS: APTT 38.2 SECONDS (22.8-39.4)
[2020-04-13 09:49] LABS: BASOPHILS 0.2 % (0-2); EOSINOPHILS 0.4 % (0-7); HEMATOCRIT 23.1 % (36.0-48.0); HEMOGLOBIN 7.7 g/dL (12-16); LYMPHOCYTE ABS# 0.63 10x3/uL (1.18-3.74); LYMPHOCYTES 7.7 % (15-50); MCHC 33.3 g/dL (31.0-37.0); MCV 99.1 fL (80.0-100.0); MEAN PLATELET VOLUME 7.8 fL (7.4-10.4); MONOCYTES 6.2 % (2-11); NEUTROPHIL ABS# 6.87 10x3/uL (1.56-6.13); NEUTROPHILS 84.5 % (40-80); PLATELET COUNT 209 10x3/uL (130-400); RBC 2.33 10x6/uL (4.00-5.40); RDW 12.3 % (11.5-14.5); WBC 8.1 10x3/uL (4.8-10.8)
[2020-04-13 10:08] LABS: BILIRUBIN - TOTAL 0.21 mg/dL (0.2-1.3); CALCIUM 7.7 mg/dL (8.5-10.1); CREATININE - SERUM 1.2 mg/dL (0.6-1.3); PROTEIN - SERUM 5.8 g/dL (6.4-8.2)
[2020-04-13 10:10] LABS: ANION GAP 10.9 mmol/L (8-16); CARBON DIOXIDE 25.3 mmol/L (21.0-32.0); POTASSIUM - SERUM 3.2 mmol/L (3.5-5.1)
[2020-04-13 11:11] LABS: % SATURATION 26 % (15-55); IRON 20 ug/dl (35-150); TOTAL IRON BIND CAPACITY 76 ug/dl (260-445); UNSAT IRON BIND CAPACITY 56 ug/dl (150-375)
[2020-04-13 11:39] LABS: FERRITIN 785 ng/mL (3-244); LDH 180 U/L (81-234)
[2020-04-13 14:57] LABS: UDS - AMPHET NEGATIVE QUAL (NEGATIVE); UDS - BARB POSITIVE QUAL (NEGATIVE); UDS - BENZO POSITIVE QUAL (NEGATIVE); UDS - COCAINE NEGATIVE QUAL (NEGATIVE); UDS - OPIATE POSITIVE QUAL (NEGATIVE); UDS - PCP NEGATIVE QUAL (NEGATIVE); UDS - THC NEGATIVE QUAL (NEGATIVE)
[2020-04-13 15:46] LABS: BILIRUBIN NEGATIVE (NEGATIVE); KETONE MODERATE mg/dL (NEGATIVE); NITRITE NEGATIVE (NEGATIVE); UROBILINOGEN NORMAL mg/dL (< 2)
[2020-04-13 15:58] LABS: BACTERIA MODERATE HPF (NONE SEEN)
--- NOTE | 2020-04-13 18:22 | NUR ---
1750-BLOOD TRANSFUSION STARTED. INSTRUCTED PT TO LET NURSE KNOW IF ANY SOB, ITCHING, OR WHEEZING DEVELOPS. CONTINUE TO MONITOR. CALL LIGHT IN REACH
--- NOTE | 2020-04-13 21:40 | NUR ---
1 UNIT PRBC TRANSFUSION COMPLETE. NO S/S OF A REACTION. PT ASKED FOR HER BRIEF TO BE CHANGED DUE TO INCONTINENCE OF URINE. BRIEF CHANGED AND SHE WAS CLEANED UP. SHE DENIES PAIN OR NEEDS AT THIS TIME. HER BED IS LOW, BED ALARM ON AND CALL LIGHT IS WITHIN REACH.
[2020-04-14] VITALS: BP 118/62
[2020-04-14 05:55] VITALS: BP 122/74
--- NOTE | 2020-04-14 07:29 | NUR ---
DAVOL DRAIN REMOVED PER ORDERS TO LEFT SHOULDER. SMALL 2 X 2 COVERED WITH WHITE SQUARE BORDER GUAZE. DATED. TOLERATED WELL.
[2020-04-14 07:36] VITALS: BP 140/65
--- NOTE | 2020-04-14 07:57 | NUR ---
AWAKE AND ALERT. ORIENTED X3. LUNGS HAVE WHEEZES THROUGHOUT LUNG BLACK. REPORTS DRY COUGH. SKIN IS INTACT WITHOUT REDNESS EXCEPT INCISION TO LEFT SHOULDER WHICH HAS A DRY INTACT DRESSING IN PLACE. NEURO CHECKS TO LEFT ARM WNL. IV TO RIGHT FOREARM/AC AREA IS PATENT WITHOUT REDNESS AT INSERTION SITE. DENIES NEEDS.
[2020-04-14 08:04] LABS: BASOPHILS 0.3 % (0-2); EOSINOPHILS 0.3 % (0-7); HEMATOCRIT 26.2 % (36.0-48.0); HEMOGLOBIN 8.8 g/dL (12-16); IMMATURE GRANULOCYTES 1.3 % (0-5); LYMPHOCYTE ABS# 0.86 10x3/uL (1.18-3.74); LYMPHOCYTES 14.2 % (15-50); MCH 31.9 pg (26.0-34.0); MCHC 33.6 g/dL (31.0-37.0); MONOCYTES 8.1 % (2-11); NEUTROPHIL ABS# 4.57 10x3/uL (1.56-6.13); NEUTROPHILS 75.8 % (40-80); PLATELET COUNT 182 10x3/uL (130-400); RBC 2.76 10x6/uL (4.00-5.40); RDW 14.6 % (11.5-14.5)
[2020-04-14 08:16] LABS: ALKALINE PHOSPHATASE 126 U/L (30-120); ALT (SGPT) 28 U/L (10-68); BILIRUBIN - TOTAL 0.33 mg/dL (0.2-1.3); CALCIUM 7.7 mg/dL (8.5-10.1); CARBON DIOXIDE 23.4 mmol/L (21.0-32.0); CHLORIDE - SERUM 99 mmol/L (98-107); POTASSIUM - SERUM 3.8 mmol/L (3.5-5.1); PROTEIN - SERUM 5.1 g/dL (6.4-8.2); SODIUM 134 mmol/L (136-145); eGFR NON AFRICAN AMERICAN 87 mL/min (90-120)
[2020-04-14 08:17] LABS: CALC OSMOLALITY 266 mosm/kg (275-300); CREATININE - SERUM 0.7 mg/dL (0.6-1.3); GLUCOSE 97 mg/dL (74-106); UREA NITROGEN 10 mg/dL (7-18)
[2020-04-14 08:18] LABS: MCV 94.9 fL (80.0-100.0)
--- NOTE | 2020-04-14 09:43 | NUR ---
ATE MOST OF BREAKFAST. TOOK AM MEDS CRUSHED. DENIES NEEDS.
[2020-04-14 11:20] VITALS: BP 154/67
--- NOTE | 2020-04-14 11:49 | NUR ---
Rehab Note- Acute Inpatient Rehab prescreen order received. The patient has [employer] insurance and will require a PreAUth prior to an inpatient acute rehab stay. She has a pending OT Eval that will be needed for PreAuth process. Will begin PreAuth and follow at this time. THank you for this referral! Dede Cardona RN Clinical Liaison,, [facility] Rehab
[2020-04-14 17:50] VITALS: BP 136/76
--- NOTE | 2020-04-14 18:54 | NUR ---
PATIENT RESTING IN BED WITH NO S/S OF DISTRESS. BED IN LOWEST POSITION AND CALL LIGHT WITHIN REACH. ENCOURAGED PATIENT TO CALL WITH NEEDS.
--- NOTE | 2020-04-14 19:11 | NUR ---
RESTING QUIETLY IN BED. DENIES NEEDS. NO CHANGES NOTED.
[2020-04-14 19:54] VITALS: BP 132/62
--- NOTE | 2020-04-14 21:29 | NUR ---
ADMINISTERED MEDS PER ORDERS. PATIENT RACHEL. WELL ENCOURAGED TO CALL WITH NEEDS.
[2020-04-15 05:05] VITALS: BP 145/72
[2020-04-15] MEDS ORDERED: HYDROCODON-ACE1 EA10 PO (07:24)
--- NOTE | 2020-04-15 07:40 | NUR ---
PT RESTING IN BED. C/O PAIN TO LEFT SHOULDER 11/29 AT THIS TIME. PAIN MEDICATION ADMINISTERED PER MD ORDERS. DRESSING TO LEFT SHOULDER C/D/I. SLING IN PLACE. EXTREMITY WARM TO TOUCH, ABLE TO MOVE FINGERS. IV TO RIGHT FOREARM WITH 1/2 NS @ 50ML/HR INFUSING VIA PUMP. SITE WITHOUT REDNESS OR EDEMA. DENIES FURTHER NEEDS AT THIS TIME. CL WITHIN REACH. ENCOURAGED TO CALL WITH NEEDS. CONTINUE POC
[2020-04-15 08:54] LABS: BASOPHILS 0.2 % (0-2); EOSINOPHILS 0.6 % (0-7); HEMATOCRIT 27.6 % (36.0-48.0); HEMOGLOBIN 9.2 g/dL (12-16); LYMPHOCYTE ABS# 1.11 10x3/uL (1.18-3.74); LYMPHOCYTES 16.7 % (15-50); MCH 31.8 pg (26.0-34.0); MCHC 33.3 g/dL (31.0-37.0); MCV 95.5 fL (80.0-100.0); MEAN PLATELET VOLUME 8.4 fL (7.4-10.4); MONOCYTES 9.9 % (2-11); NEUTROPHIL ABS# 4.69 10x3/uL (1.56-6.13); NEUTROPHILS 70.6 % (40-80); PLATELET COUNT 210 10x3/uL (130-400); RBC 2.89 10x6/uL (4.00-5.40); RDW 14.3 % (11.5-14.5); WBC 6.6 10x3/uL (4.8-10.8)
[2020-04-15 09:15] LABS: ALKALINE PHOSPHATASE 139 U/L (30-120); ALT (SGPT) 26 U/L (10-68); BILIRUBIN - TOTAL 0.23 mg/dL (0.2-1.3); CALC OSMOLALITY 262 mosm/kg (275-300); CALCIUM 7.9 mg/dL (8.5-10.1); CARBON DIOXIDE 28.4 mmol/L (21.0-32.0); CHLORIDE - SERUM 99 mmol/L (98-107); CREATININE - SERUM 0.6 mg/dL (0.6-1.3); GLUCOSE 102 mg/dL (74-106); POTASSIUM - SERUM 3.5 mmol/L (3.5-5.1); PROTEIN - SERUM 5.3 g/dL (6.4-8.2); SODIUM 132 mmol/L (136-145); UREA NITROGEN 8 mg/dL (7-18); eGFR NON AFRICAN AMERICAN > 90 mL/min (90-120)
[2020-04-15 09:21] VITALS: BP 155/77
--- NOTE | 2020-04-15 11:09 | NUR ---
OT NOTE: PT DOING WELL. BED MOB WITH MIN ASSIST FOR SUPINE TO SIT. AMB TO BATHROOM WITH MIN ASSIST... UNSTEADY GAIT; TOILETING WITH SBA; MOD ASSIST TO FREDA BRIEF AND SOCKS; AMB AROUND ROOM FOR ENDURANCE TRAINING. ABLE TO PERFORM GROOMING TASKS WITH SET UP...READJUSTED SLING AND CLEANED L ARM SECONDARY TO PT REPORTING SEVERE ITCHING. PT ALSO POINTS OUT A SMALL AREA ON L LOWER QUAD OF ABDOMEN. APPEARS TO BE A WOUND THAT IS HEALING. SHE REPORTS THAT IT CAME UP SINCE SHES BEEN IN HOSPITAL. NURSING NOTIFED AND CAME TO EXAMINE. AURELIA HORVATH, OTR/L [id number]
--- NOTE | 2020-04-15 11:30 | MORECARE ---
CASE MANAGEMENT DISCHARGE SUMMARY PATIENT: CLIFF LINDO UNIT: [id number] ADM DATE: 04/12/20 AGE: 74 : 45 SEX: F ROOM/BED: [facility]8 AUTHOR: HEATHER CRYSTAL PHYSICIAN: REFERRING PHYSICIAN: SILVIO WOODS MD DATE OF SERVICE: 04/15/20 Discharge Plan Patient Name: CLIFF LINDO Facility: [facility]:[place] : 1945 Planned Disposition: Inpatient Rehab Anticipated Discharge Date: Discharge Date: Expected LOS: Initial Reviewer: [email or web address] Initial Review Date: 04/12/2020 Generated: 04/15/20 12:29 pm Patient Name: CLIFF LINDO Page 42414 at 1130 All edits/amendments must be made on the electronic document DICTATION DATE: 04/15/20 112 BUSINESS PROCESS COORDINATOR: TED 04/15/20 1129 RPT#: [id number] DC DATE: STATUS: ADM IN [facility] [address] [place] [address] END OF REPORT
--- NOTE | 2020-04-15 11:38 | MORECARE ---
CASE MANAGEMENT DISCHARGE SUMMARY PATIENT: CLIFF LINDO UNIT: [id number] ADM DATE: 04/12/20 AGE: 74 : 45 SEX: F ROOM/BED: D.1208 AUTHOR: BONILLA,DOC PHYSICIAN: REFERRING PHYSICIAN: SILVIO WOODS MD DATE OF SERVICE: 04/15/20 Discharge Plan Patient Name: CLIFF LINDO Facility: [facility]:[place] : 1945 Planned Disposition: Inpatient Rehab Anticipated Discharge Date: Discharge Date: Expected LOS: Initial Reviewer: [email or web address] Initial Review Date: 04/12/2020 Generated: 04/15/20 12:38 pm Comments DCP- Discharge Planning Updated by [email or web address]: Miranda Combs on 04/15/20 10:[address] Patient Name: CLIFF LINDO Admission Status: ER Accout number: [id number] Admission Date: 04-12-2020 : 1945 Admission Diagnosis:HYPO-OSMOLALITY AND HYPONATREMIA Attending: SILVIO WOODS Current LOS: 3 Anticipated DC Date: Planned Disposition: Inpatient Rehab Primary Insurance: [employer] Discharge Planning Comments: CM met with patient to complete initial dc planning assessment. CM educated patient on the CM role and verbal consent given by patient to complete assessment. Patient lives at home with friend. Patient is independent. At discharge patient plans to return home and feels this is a safe discharge. CM discussed availability of home health, rehab services, and medical equipment. CANDIDA signed requesting inpatient rehab @ [facility]. CM spoke with Shania and they will send out for auth. Patient plans to resume [facility]. Patient will have friend to transport home. Patient denied known discharge needs at this time. CM will continue to follow and will assist as needed with dc plans/needs. Software Systems Architect: Miranda Combs DCPIA - Discharge Planning Initial Assessment Updated by [email or web address]: Miranda Combs on 04/15/20 11:32 am * Is the patient Alert and Oriented? Yes * How many steps to enter\exit or inside your home? * PCP FARO * Pharmacy [facility] * Preadmission Environment Home with Family * ADLs Independent * Equipment Wheelchair * Other Equipment GRABBER * List name and contact numbers for known caregivers / representatives who currently or will assist patient after discharge: LEILA GÓMEZ - [phone], * Verbal permission to speak to the caregivers and representatives has been obtained from the patient. N/A * Community resources currently utilized Home Health * Please name any agencies selected above. [facility] * Additional services required to return to the preadmission environment? No * Can the patient safely return to the preadmission environment? Yes * Has this patient been hospitalized within the prior 30 days at any hospital? No Last DP export: 04/15/20 10:30 a Patient Name: CLIFF LINDO Page 26879 at 1138 All edits/amendments must be made on the electronic document DICTATION DATE: 04/15/201137 GEOMETRY PROFESSOR: TED 04/15/208 RPT#: [id number] DC DATE: STATUS: ADM IN [facility] [address] [place] [address] END OF REPORT
--- NOTE | 2020-04-15 11:47 | MORECARE ---
CASE MANAGEMENT DISCHARGE SUMMARY PATIENT: CLIFF LINDO UNIT: [id number] ADM DATE: 04/12/20 AGE: 74 : 45 SEX: F ROOM/BED: D.1208 AUTHOR: BONILLA,DOC PHYSICIAN: REFERRING PHYSICIAN: SILVIO WOODS MD DATE OF SERVICE: 04/15/20 Discharge Plan Patient Name: CLIFF LINDO Facility: [facility]:[place] : 1945 Planned Disposition: Inpatient Rehab Anticipated Discharge Date: Discharge Date: Expected LOS: Initial Reviewer: [email or web address] Initial Review Date: 04/12/2020 Generated: 04/15/20 12:46 pm Comments DCP- Discharge Planning Updated by [email or web address]: Miranda Combs on 04/15/20 10:[address] Patient Name: CLIFF LINDO Admission Status: ER Accout number: [id number] Admission Date: 04-12-2020 : 1945 Admission Diagnosis:HYPO-OSMOLALITY AND HYPONATREMIA Attending: SILVIO WOODS Current LOS: 3 Anticipated DC Date: Planned Disposition: Inpatient Rehab Primary Insurance: [employer] Discharge Planning Comments: CM met with patient to complete initial dc planning assessment. CM educated patient on the CM role and verbal consent given by patient to complete assessment. Patient lives at home with friend. Patient is independent. At discharge patient plans to return home and feels this is a safe discharge. CM discussed availability of home health, rehab services, and medical equipment. CANDIDA signed requesting inpatient rehab @ [facility]. CM spoke with Shania and they will send out for auth. Patient plans to resume [facility]. Patient will have friend to transport home. Patient denied known discharge needs at this time. CM will continue to follow and will assist as needed with dc plans/needs. Medium Cycle Salesperson: Miranda Combs DCPIA - Discharge Planning Initial Assessment Updated by [id number]: Miranda Combs on 04/15/20 11:32 am * Is the patient Alert and Oriented? Yes * How many steps to enter\exit or inside your home? * PCP FARO * Pharmacy [facility] * Preadmission Environment Home with Family * ADLs Independent * Equipment Wheelchair * Other Equipment GRABBER * List name and contact numbers for known caregivers / representatives who currently or will assist patient after discharge: LEILA GÓMEZ - [phone], * Verbal permission to speak to the caregivers and representatives has been obtained from the patient. N/A * Community resources currently utilized Home Health * Please name any agencies selected above. [facility] * Additional services required to return to the preadmission environment? No * Can the patient safely return to the preadmission environment? Yes * Has this patient been hospitalized within the prior 30 days at any hospital? No Coverage Notice Reviewer: [email or web address] Jaime Combs Notice Issued Date-Time: 04/15/2020 10:05 Notice Type: IM Discharge Notice Notice Delivered To: Patient Relationship to Patient: Self Potato Inspector Name: Delivery Method: HAND - Hand Delivered Sayra Days: Prior Verbal Notification: Recipient Understood Notice: Yes Recipient Signature: Yes Med Rec Note Co-signed by Attending: Coverage Notice Comment: Reviewer: [id number] Combs Notice Issued Date-Time: 04/15/2020 10:05 Notice Type: Patient Choice Letter Notice Delivered To: Patient Relationship to Patient: Self Potato Inspector Name: Delivery Method: HAND - Hand Delivered Sayra Days: Prior Verbal Notification: Recipient Understood Notice: Yes Recipient Signature: Yes Med Rec Note Co-signed by Attending: Coverage Notice Comment: INPATIENT REHAB [facility] Last DP export: 04/15/20 10:38 a Patient Name: CLIFF LINDO Page [phone] at 1147 All edits/amendments must be made on the electronic document DICTATION DATE: 04/15/20 1146 MILL TENDER SECOND OPERATOR: TED 04/15/20 1146 RPT#: [id number] DC DATE: STATUS: ADM IN [facility] [address] [place] [address] END OF REPORT
[2020-04-15 12:09] VITALS: Ht 162.6 cm; Wt 40.8 kg
[2020-04-15 13:43] VITALS: BP 149/70
--- NOTE | 2020-04-15 16:29 | NUR ---
OT NOTE: PT COMPLETED SUPINE TO SIT WITH MIN A. PT COMPLETED SIT TO STAND WITH CGA. PT COMPLETED ADL MOB WITH CGA. PT REQUIRED MIN A FOR SLING ADJUSTMENT. PT COMPLETED SITTING BALANCE WITH SBA. 1240-1 OLYA CORBETT COTA
[2020-04-15 16:58] VITALS: BP 148/69
[2020-04-15 20:00] VITALS: BP 109/62
[2020-04-16 04:30] VITALS: BP 142/61
[2020-04-16 07:24] VITALS: BP 140/62
--- NOTE | 2020-04-16 08:10 | NUR ---
PT ALERT, ORIENTED, AND AWAKE. NO NEEDS AT THIS TIME. STATES PAIN IS A 7 OUT OF 10 ON THE PAIN SCALE. CL IN REACH. WCTM
[2020-04-16 09:07] LABS: HEMATOCRIT 28.5 % (36.0-48.0); HEMOGLOBIN 9.5 g/dL (12-16); MCH 33.1 pg (26.0-34.0); MCHC 33.3 g/dL (31.0-37.0); MEAN PLATELET VOLUME 7.7 fL (7.4-10.4); NEUTROPHILS 67.3 % (40-80); PLATELET COUNT 243 10x3/uL (130-400); RBC 2.87 10x6/uL (4.00-5.40); RDW 14.6 % (11.5-14.5); WBC 5.9 10x3/uL (4.8-10.8)
[2020-04-16 09:12] LABS: MCV 99.3 fL (80.0-100.0)
[2020-04-16 09:24] LABS: ALKALINE PHOSPHATASE 125 U/L (30-120); ALT (SGPT) 21 U/L (10-68); BILIRUBIN - TOTAL 0.24 mg/dL (0.2-1.3); CALC OSMOLALITY 265 mosm/kg (275-300); CALCIUM 7.7 mg/dL (8.5-10.1); CARBON DIOXIDE 26.1 mmol/L (21.0-32.0); CHLORIDE - SERUM 99 mmol/L (98-107); CREATININE - SERUM 0.6 mg/dL (0.6-1.3); GLUCOSE 89 mg/dL (74-106); POTASSIUM - SERUM 3.4 mmol/L (3.5-5.1); PROTEIN - SERUM 5.2 g/dL (6.4-8.2); SODIUM 134 mmol/L (136-145); UREA NITROGEN 9 mg/dL (7-18); eGFR NON AFRICAN AMERICAN > 90 mL/min (90-120)
--- NOTE | 2020-04-16 10:23 | NUR ---
Rehab Note- Received notification of approved authorization for an inpatient acute rehab stay. Auth #[id number] for 7 days. Notified SUSANNA Jean. Thank you for this referral! Dede Cardona RN Clinical Liaison, [facility] Rehab
--- NOTE | 2020-04-16 12:33 | NUR ---
PT DRESSING CHANGED PER DR BURRIS. INCISION CLEAN, DRY, AND INTACT. NO NEEDS AT THIS TIME. CL IN REACH. WCTM
--- NOTE | 2020-04-16 14:56 | NUR ---
IV THERAPY REMOVED FROM RIGHT FOREARM WITH TIP INTACT. DISCHARGE PAPERS SIGNED FOR REHAB.
--- NOTE | 2020-04-16 16:15 | NUR ---
OT NOTE: PT COMPLETED BUE AROM EXS. PT COMPLETED SUPINE TO SIT WITH CGA. PT COMPLETED ADLMOB WITH CGA. PT REQUIRED TOTAL A WITH MEDICAL EQUIPMENT MANAGEMENT. PT COMPLETED TOILETING WITH SPV. PT COMPLETED TOILET HYGIENE WITH MIN-MOD A. PT ATTEMPTED HYGIENE. [id number] THANK YOU,CAMI NAVA
--- NOTE | 2020-04-16 17:20 | MORECARE ---
CASE MANAGEMENT DISCHARGE SUMMARY PATIENT: CLIFF LINDO UNIT: [id number] ADM DATE: 04/12/20 AGE: 74 : 45 SEX: F ROOM/BED: D.1208 AUTHOR: BONILLA,DOC PHYSICIAN: REFERRING PHYSICIAN: SILVIO WOODS MD DATE OF SERVICE: 04/16/20 Discharge Plan Patient Name: CLIFF LINDO Facility: [facility]:[place] : 1945 Planned Disposition: Inpatient Rehab Anticipated Discharge Date: Discharge Date: 04/16/2020 Expected LOS: Initial Reviewer: [email or web address] Initial Review Date: 04/12/2020 Generated: 04/16/20 6:20 pm Comments DCP- Discharge Planning Updated by [email or web address]: Miranda Combs on 04/15/20 10:[address] Patient Name: CLIFF LINDO Admission Status: ER Accout number: [id number] Admission Date: 04-12-2020 : 1945 Admission Diagnosis:HYPO-OSMOLALITY AND HYPONATREMIA Attending: SILVIO WOODS Current LOS: 3 Anticipated DC Date: Planned Disposition: Inpatient Rehab Primary Insurance: [employer] Discharge Planning Comments: CM met with patient to complete initial dc planning assessment. CM educated patient on the CM role and verbal consent given by patient to complete assessment. Patient lives at home with friend. Patient is independent. At discharge patient plans to return home and feels this is a safe discharge. CM discussed availability of home health, rehab services, and medical equipment. CANDIDA signed requesting inpatient rehab @ [facility]. CM spoke with Shania and they will send out for auth. Patient plans to resume [facility]. Patient will have friend to transport home. Patient denied known discharge needs at this time. CM will continue to follow and will assist as needed with dc plans/needs. Emergency Man: Miranda Combs DCPIA - Discharge Planning Initial Assessment Updated by [email or web address]: Miranda Combs on 04/15/20 11:32 am * Is the patient Alert and Oriented? Yes * How many steps to enter\exit or inside your home? * PCP FARO * Pharmacy [facility] * Preadmission Environment Home with Family * ADLs Independent * Equipment Wheelchair * Other Equipment GRABBER * List name and contact numbers for known caregivers / representatives who currently or will assist patient after discharge: LEILA GÓMEZ - [phone], * Verbal permission to speak to the caregivers and representatives has been obtained from the patient. N/A * Community resources currently utilized Home Health * Please name any agencies selected above. [facility] * Additional services required to return to the preadmission environment? No * Can the patient safely return to the preadmission environment? Yes * Has this patient been hospitalized within the prior 30 days at any hospital? No Coverage Notice Reviewer: [email or web address] Jaime Combs Notice Issued Date-Time: 04/15/2020 10:05 Notice Type: IM Discharge Notice Notice Delivered To: Patient Relationship to Patient: Self Laborer Tree Tapping Name: Delivery Method: HAND - Hand Delivered Sayra Days: Prior Verbal Notification: Recipient Understood Notice: Yes Recipient Signature: Yes Med Rec Note Co-signed by Attending: Coverage Notice Comment: Reviewer: [email or web address] Combs Notice Issued Date-Time: 04/15/2020 10:05 Notice Type: Patient Choice Letter Notice Delivered To: Patient Relationship to Patient: Self Laborer Tree Tapping Name: Delivery Method: HAND - Hand Delivered Sayra Days: Prior Verbal Notification: Recipient Understood Notice: Yes Recipient Signature: Yes Med Rec Note Co-signed by Attending: Coverage Notice Comment: INPATIENT REHAB [facility] Last DP export: 04/15/20 10:47 a Patient Name: CLIFF LINDO Page 49767 at 1720 All edits/amendments must be made on the electronic document DICTATION DATE: 04/16/20 172 CORPORATE SECURITIES RESEARCH ANALYST: TED 04/16/20 172 RPT#: [id number] DC DATE:04/16/20 STATUS: DIS IN [facility] [address] [place] [address] END OF REPORT
== END 2020-04-16 14:26 | DRG 483 ==
LOC: D.ER 09:45 → D.EDHOLD 14:07 → D.M3 14:07
PROVIDERS: Family Medicine; Orthopaedic Surgery; ADMIT Emergency Medicine; ATTEND Emergency Medicine
PROC: 0RRK00Z Replacement of Left Shoulder Joint with Reverse Ball and Socket Synthetic Substitute, Open Approach (ICD-10-PCS; principal; 2020-04-12 16:00)
DX: S42.302A Unspecified fracture of shaft of humerus, left arm, initial encounter for closed fracture (principal); E43 Unspecified severe protein-calorie malnutrition; E87.1 Hypo-osmolality and hyponatremia; F17.203 Nicotine dependence unspecified, with withdrawal; D62 Acute posthemorrhagic anemia; N17.9 Acute kidney failure, unspecified; Z68.1 Body mass index [BMI] 19.9 or less, adult; S62.202A Unspecified fracture of first metacarpal bone, left hand, initial encounter for closed fracture; W18.30XA Fall on same level, unspecified, initial encounter; M79.622 Pain in left upper arm; F10.20 Alcohol dependence, uncomplicated; F12.90 Cannabis use, unspecified, uncomplicated; Z91.81 History of falling; J43.9 Emphysema, unspecified; F41.8 Other specified anxiety disorders

== ENCOUNTER 2020-04-16 14:48 | Inpatient (IN) | payer MEDICARE ==
[~2020-04-16] VITALS: Ht 162.6 cm; Wt 37.2 kg
[~2020-04-16 14:48] MED LIST changes: +HYDROCODON-ACE1 EA10 PO
[2020-04-16 15:26] VITALS: BP 104/62; BMI 14.1
--- NOTE | 2020-04-16 19:15 | NUR ---
RECIEVED PT SITTING UP IN BED WATCHING TV. CL IN REACH. DENIES NEEDS AT THIS TIME. BED IN LOW SIDE RAILS X2. A/O X4. LUNGS CLEAR. BOWEL ACTIVE X4. RESP EVEN AND UNLABORED. LEFT ARM IN SLING. CPOC
[2020-04-16 20:00] VITALS: BP 125/63
--- NOTE | 2020-04-17 06:16 | NUR ---
I have reviewed this patient and I concur with the Shift Assessment completed by the Licensed Practical Nurse today this shift.
[2020-04-17 06:19] LABS: BASOPHILS 0.4 % (0-2); EOSINOPHILS 1.2 % (0-7); HEMATOCRIT 26.1 % (36.0-48.0); HEMOGLOBIN 8.4 g/dL (12-16); LYMPHOCYTE ABS# 1.56 10x3/uL (1.18-3.74); LYMPHOCYTES 20.6 % (15-50); MCH 31.6 pg (26.0-34.0); MCHC 32.2 g/dL (31.0-37.0); MCV 98.1 fL (80.0-100.0); MEAN PLATELET VOLUME 8.1 fL (7.4-10.4); MONOCYTES 14.7 % (2-11); NEUTROPHIL ABS# 4.62 10x3/uL (1.56-6.13); NEUTROPHILS 61.1 % (40-80); PLATELET COUNT 220 10x3/uL (130-400); RBC 2.66 10x6/uL (4.00-5.40); RDW 14.3 % (11.5-14.5)
[2020-04-17 06:26] LABS: WBC 7.6 10x3/uL (4.8-10.8)
[2020-04-17 06:32] LABS: CALC OSMOLALITY 265 mosm/kg (275-300); CALCIUM 7.8 mg/dL (8.5-10.1); CARBON DIOXIDE 28.2 mmol/L (21.0-32.0); CHLORIDE - SERUM 102 mmol/L (98-107); CREATININE - SERUM 0.6 mg/dL (0.6-1.3); GLUCOSE 84 mg/dL (74-106); POTASSIUM - SERUM 3.9 mmol/L (3.5-5.1); SODIUM 134 mmol/L (136-145); UREA NITROGEN 11 mg/dL (7-18); eGFR NON AFRICAN AMERICAN > 90 mL/min (90-120)
--- NOTE | 2020-04-17 08:00 | NUR ---
PATIENT IS ALERT/ORIET. CALL LIGHT WITHIN REACH. VOICES NO NEEDS AT THIS TIME. WILL CONTINUE WITH PLAN OF CARE
[2020-04-17 08:03] VITALS: BP 127/56
--- NOTE | 2020-04-17 09:39 | NUR ---
PATIENT ADMITTED TO REHAB FROM ACUTE FLOOR. HER PCP IS DR. HSIEH. DISCHARGE PLANS ARE TO RETURN HOME. SHE IS CLIENT OF [facility] AND WANTS TO CONTINUE WITH THEM [place]. DME AT HOME IS A WHEELCHAIR. WILL CONTINUE TO FOLLOW WITH PATIENT.
--- NOTE | 2020-04-17 09:51 | NUR ---
OCCUPATIONAL THERAPIST WORKING WITH CLEM[employer]. HELPING PATIENT WITH A SHOWER.
--- NOTE | 2020-04-17 13:30 | NUR ---
PATIENT RESTING IN BED AFTER THERAPY. EYES SHUT. CALL LIGHT WITHIN REACH.
[2020-04-17 15:20] VITALS: Ht 162.6 cm; Wt 37.2 kg
--- NOTE | 2020-04-17 16:10 | NUR ---
EYES OPEN, SITTING UP IN BED WATCHING T.V. CALL LIGHT WITHIN REACH
[2020-04-17 20:00] VITALS: BP 126/58
--- NOTE | 2020-04-17 21:45 | NUR ---
PATIENT USED CALL LIGHT FOR ASSIST TO BATHROOM. ALARM TURNED OFF. PATIENT MINIMAL ASSIST OUT OF BED. VOID ONLY. RETURNED TO LOW BED. LEFT ARM PLACED ON PILLOW. ALARM ON. CALL LIGHT WITHIN REACH. WILL CONTINUE TO MONITOR.
--- NOTE | 2020-04-18 01:07 | NUR ---
PATIENT USED CALL LIGHT FOR ASSIST. PATIENT MINIMAL ASSIST OUT OF BED & IN & OUT OF WHEELCHAIR ONTO COMMODE. VOID ONLY. RETURNED TO LOW BED, NO ASSIST. ALARM ON. CALL LIGHT & BEDSIDE TABLE WITHIN REACH. WILL CONTINUE TO MONITOR.
--- NOTE | 2020-04-18 03:39 | NUR ---
PATIENT EYES CLOSED. RESPIRATIONS 18 & EVEN. LEFT ARM ELEVATED ON PILLOW. NO C/O PAIN OR DISTRESS AT THIS TIME. BEDSIDE TABLE & CALL LIGHT WITHIN REACH. ALARM ON. WILL CONTINUE TO MONITOR.
--- NOTE | 2020-04-18 07:53 | NUR ---
PATIENT IS ALERT/ORIENT. CALL LIGHT WITHIN REACH. VOICES NO NEEDS AT THIS TIME. WILL CONTINUE WITH PLAN OF CARE
[2020-04-18 09:55] VITALS: BP 121/588
--- NOTE | 2020-04-18 14:41 | NUR ---
PATIENT IN REHAB ROOM. WORKING WITH OCCUPATIONAL THERAPIST
--- NOTE | 2020-04-18 20:00 | NUR ---
PATIENT RECEIVED SITTING UP IN BED. LEFT ARM SLING ON & ARM ELEVATED ON PILLOW. NO C/O PAIN OR DISTRESS AT THIS TIME. ASSESSMENT & VITAL SIGNS DONE. PATIENT TOILETED & HAD VOID & BM. PATIENT WASHED HER HANDS. RETURNED TO LOW BED. ALARM ON. CALL LIGHT & BEDSIDE TABLE WITHIN REACH. WILL CONTINUE TO MONITOR.
[2020-04-18 20:06] VITALS: BP 122/52
--- NOTE | 2020-04-19 00:29 | NUR ---
I have reviewed this patient and I concur with the Shift Assessment completed by the Licensed Practical Nurse today this shift.
--- NOTE | 2020-04-19 01:01 | NUR ---
PATIENT USED CALL LIGHT FOR ASSIST. PATIENT STANDBY ASSIST AMBULATING TO BATHROOM. VOID & BM. PATIENT WASHED HER HANDS. RETURNED TO LOW BED. ALARM ON. BEDSIDE TABLE & CALL LIGHT WITHIN REACH. WILL CONTINUE TO MONITOR.
--- NOTE | 2020-04-19 03:21 | NUR ---
PATIENT AWAKE ASKING FOR SNACK. PATIENT GIVEN SHERBERT & ICE WATER. BED LOW. CALL LIGHT WITHIN REAH. WILL CONTINUE TO MONITOR.
[2020-04-19 08:00] VITALS: BP 120/84
--- NOTE | 2020-04-19 15:01 | NUR ---
PT RESTING IN BED WITH EYES OPEN CALL LIGHT IN REACH WILL MONITER
--- NOTE | 2020-04-19 17:54 | NUR ---
PT RESTING IN BED WITH EYES OPEN CALL LIGHT IN REACH NO PROBLEMS WILL MONITER
--- NOTE | 2020-04-19 18:40 | NUR ---
I have reviewed this patient and I concur with the Shift Assessment completed by the Licensed Practical Nurse today this shift.
[2020-04-19 19:48] VITALS: BP 127/58
--- NOTE | 2020-04-19 23:50 | NUR ---
I have reviewed this patient and I concur with the Shift Assessment completed by the Licensed Practical Nurse today this shift.
--- NOTE | 2020-04-20 02:35 | NUR ---
PATIENT EYES CLOSED. RESPIRATIONS 18 & EVEN. LEFT ARM ON PILLOW. BED LOW. ALARM ON. CALL LIGHT WITHIN REACH. WILL CONTINUE TO MONITOR.
--- NOTE | 2020-04-20 04:49 | NUR ---
PATIENT AWAKE. NEW DRESSING PER DR. BURRIS APPLIED TO LEFT UPPER ARM. TAPE & GLUE INTACT. NO DRAINAGE NOTED ON OLD DRESSING. PATIENT TOLERATED IT WELL.
[2020-04-20 07:46] VITALS: BP 120/60
[2020-04-20 09:43] LABS: BASOPHILS 0.3 % (0-2); EOSINOPHILS 0.9 % (0-7); HEMATOCRIT 23.6 % (36.0-48.0); HEMOGLOBIN 7.6 g/dL (12-16); LYMPHOCYTE ABS# 1.36 10x3/uL (1.18-3.74); LYMPHOCYTES 19.7 % (15-50); MCH 31.9 pg (26.0-34.0); MCHC 32.2 g/dL (31.0-37.0); MCV 99.2 fL (80.0-100.0); MONOCYTES 17.5 % (2-11); NEUTROPHILS 60.6 % (40-80); PLATELET COUNT 255 10x3/uL (130-400); RBC 2.38 10x6/uL (4.00-5.40); RDW 14.5 % (11.5-14.5); WBC 6.9 10x3/uL (4.8-10.8)
[2020-04-20 09:51] LABS: ANION GAP 9.4 mmol/L (8-16); CALCIUM 7.6 mg/dL (8.5-10.1); CARBON DIOXIDE 26.3 mmol/L (21.0-32.0); POTASSIUM - SERUM 3.7 mmol/L (3.5-5.1)
--- NOTE | 2020-04-20 19:12 | NUR ---
RECEIVED PT SITTING UP IN BED WATCHING TV. CL IN REACH. DENIES NEEDS AT THIS TIME. BED IN LOW SIDE RAILS X2. BED ALARM ON. RESP EVEN AND UNLABORED. LEFT ARM SLING IN PLACE. MINIMAL ASSIST/STAND BY GETTING UP. LUNGS CLEAR. BOWEL ACTIVE X4. CPOC
[2020-04-20 20:05] VITALS: BP 124/55
--- NOTE | 2020-04-21 01:24 | NUR ---
I have reviewed this patient and I concur with the Shift Assessment completed by the Licensed Practical Nurse today this shift.
[2020-04-21 08:00] VITALS: BP 122/57
--- NOTE | 2020-04-21 13:51 | NUR ---
CLINICAL UPDATES FAXED TO CLARISA/LAURA , AUTH. #[id number] REQUESTING EXTENSION OF DAYS. FAX CONFORMATION RECEIVED.WILL CONTINUE TO FOLLOW WITH PATIENT.
--- NOTE | 2020-04-21 14:00 | NUR ---
Nutrition Follow-up Diet: Regular + Ensure TID PO intake: 100% x last 4 meals recorded. Spoke with patient's RN who states that patient is eating all the food on her tray and that she needs double/larger portions to help with weight gain. She is drinking Ensure TID. Patient did throw-up on her lunch tray today. Last BM: 03/24/20 x 2. Wt: 82# (04/17/20) Meds noted: thiamin, miralax, MVI, folate, megace Labs noted: Na 135(L), BUN 20(H), Glu 132(H) Recommendations/Interventions: -Will have kitchen increase portion sizes -Recommend continue current diet and oral nutrition supplement -RD will continue to monitor PO intake and wt trend -RD will follow-up within 7 days.
--- NOTE | 2020-04-21 19:12 | NUR ---
RECIEVED PT LYING IN BED RESTING QUIETLY. NO DISTRESS NOTED. EYES CLOSED. RESP EVEN AND UNLABORED. 2ND UNIT OF BLOOD BEING ADMINISTERED AT THIS TIME THRU PERIPHERAL IV IN RIGHT FOREARM. VITALS WNL. NO S/S OF ADVERSE REACTIONS. BED IN LOW SIDE RAILS X2. A/O X4. LUNGS CLEAR. BOWEL ACTIVE X4. LEFT ARM IN SLING. CPOC
[2020-04-21 19:20] VITALS: BP 158/65
--- NOTE | 2020-04-22 05:02 | NUR ---
I have reviewed this patient and I concur with the Shift Assessment completed by the Licensed Practical Nurse today this shift.
[2020-04-22 06:53] LABS: ANION GAP 10.5 mmol/L (8-16); CALCIUM 7.9 mg/dL (8.5-10.1); CARBON DIOXIDE 24.8 mmol/L (21.0-32.0); CREATININE - SERUM 0.8 mg/dL (0.6-1.3)
[2020-04-22 06:54] LABS: POTASSIUM - SERUM 4.3 mmol/L (3.5-5.1)
[2020-04-22 07:21] LABS: BASOPHILS 0.5 % (0-2); EOSINOPHILS 1.1 % (0-7); HEMOGLOBIN 10.9 g/dL (12-16); IMMATURE GRANULOCYTES 0.4 % (0-5); LYMPHOCYTE ABS# 1.48 10x3/uL (1.18-3.74); LYMPHOCYTES 18.8 % (15-50); MCH 30.6 pg (26.0-34.0); MCV 92.7 fL (80.0-100.0); MEAN PLATELET VOLUME 8.5 fL (7.4-10.4); MONOCYTES 18.5 % (2-11); NEUTROPHIL ABS# 4.79 10x3/uL (1.56-6.13); NEUTROPHILS 60.7 % (40-80); PLATELET COUNT 270 10x3/uL (130-400); RBC 3.56 10x6/uL (4.00-5.40); RDW 17.6 % (11.5-14.5); WBC 7.9 10x3/uL (4.8-10.8)
[2020-04-22 07:27] VITALS: BP 159/74
--- NOTE | 2020-04-22 08:34 | NUR ---
SHE IS WORKING WITH THERAPY. HER LEFT ARM IS IN A SLING. SHE LIKES HER MEDICATIONS CRUSHED. WILL ASK ABOUT THE CAST ON HER ARM.
--- NOTE | 2020-04-22 09:59 | NUR ---
SPOKE WITH DR. BURRIS, HE SAID TO TAKE THE CAST OFF OF HER LEFT ARM. CONTINUE WEARING THE SLING.
[2020-04-22 20:29] VITALS: BP 144/66
--- NOTE | 2020-04-23 02:06 | NUR ---
I have reviewed this patient and I concur with the Shift Assessment completed by the Licensed Practical Nurse today this shift.
[2020-04-23 08:06] VITALS: BP 154/70
--- NOTE | 2020-04-23 13:58 | NUR ---
PT RESTING IN BED WITH EYES OPEN CALL LIGHT IN REACH WILL MONITER
--- NOTE | 2020-04-23 15:06 | NUR ---
CARE TEAM MEETING: PATIENT IS DOING WELL IN THERAPY. HER TENATIVE DC DATE IS 04/30/20. WILL CONTINUE TO FOLLOW WITH PATIENT AND WILL ASSIST WITH HER DC NEEDS.
--- NOTE | 2020-04-23 18:18 | NUR ---
PT RESTING IN BED WITHE EYES OPEN CALL LIGHT IN REACH NO PROBLEMS WILL MONITER
[2020-04-23 20:28] VITALS: BP 168/70
--- NOTE | 2020-04-24 02:24 | NUR ---
PT RESTING WITH EYES CLOSED. RESPIRATIONS EVEN AND UNLABORED. HER BED IS LOW, BED ALARM ON AND CALL LIGHT WITHIN REACH.
[2020-04-24 07:51] LABS: ANION GAP 11.2 mmol/L (8-16); CALCIUM 8.5 mg/dL (8.5-10.1); CARBON DIOXIDE 23.3 mmol/L (21.0-32.0); CREATININE - SERUM 0.9 mg/dL (0.6-1.3); POTASSIUM - SERUM 4.5 mmol/L (3.5-5.1)
[2020-04-24 08:00] VITALS: BP 140/63
--- NOTE | 2020-04-24 08:00 | NUR ---
PT RESTING IN BED WITH EYES OPEN CALL LIGHT IN REACH NO PROBLEMS WILL MONITER
[2020-04-24 08:01] LABS: BASOPHILS 0.5 % (0-2); EOSINOPHILS 1.4 % (0-7); HEMATOCRIT 33.9 % (36.0-48.0); HEMOGLOBIN 11.2 g/dL (12-16); IMMATURE GRANULOCYTES 0.5 % (0-5); LYMPHOCYTE ABS# 1.61 10x3/uL (1.18-3.74); LYMPHOCYTES 18.9 % (15-50); MCH 30.8 pg (26.0-34.0); MCV 93.1 fL (80.0-100.0); MEAN PLATELET VOLUME 8.5 fL (7.4-10.4); MONOCYTES 9.5 % (2-11); NEUTROPHILS 69.2 % (40-80); PLATELET COUNT 267 10x3/uL (130-400); RBC 3.64 10x6/uL (4.00-5.40); RDW 17.1 % (11.5-14.5); WBC 8.5 10x3/uL (4.8-10.8)
--- NOTE | 2020-04-24 18:08 | NUR ---
PT RESTING IN BED WITH EYES OPEN CALL LIGHT IN REACH NO PROBLEMS WILL MONITER
[2020-04-24 19:36] VITALS: BP 160/73
--- NOTE | 2020-04-24 20:00 | NUR ---
PATIENT RECEIVED SITTING UP IN BED WATCHING TV. ASSESSMENT & VITAL SIGNS DONE. LEFT ARM & SHOULDER IN SLING. NO C/O PAIN AT THIS TIME. BED LOW. ALARM ON. CALL LIGHT WITHIN REACH. WILL CONTINUE TO MONITOR.
--- NOTE | 2020-04-25 00:28 | NUR ---
PATIENT USED CALL LIGHT FOR ASSIST TO BATHROOM. PATIENT MINIMAL ASSIST OUT OF BED. PATIENT AMBULATED TO BATHROOM. SLOW STEADY GAIT WITH THIS NURSE WALKING BEDSIDE PATIENT. NO ASSIST WITH TOILETING. VOID ONLY. NO ASSIST ON OR OFF COMMODE. PATIENT WASHED HER HANDS. DENTURES RINSED OFF. ADHESIVE APPLIED TO UPPER DENTURE. PATIENT PLACED DENTURES IN MOUTH & RETURNED TO BED. SLOW STEADY GAIT. PATIENT HOB 25 DEGREES, PATIENT PLACED HER BODY IN POSITION OF CHOICE. ALARM ON. SIDETABLE, CALL LIGHT WITHIN REACH. WILL CONTINUE TO MONITOR.
--- NOTE | 2020-04-25 01:18 | NUR ---
I have reviewed this patient and I concur with the Shift Assessment completed by the Licensed Practical Nurse today this shift.
--- NOTE | 2020-04-25 02:06 | NUR ---
PATIENT USED CALL LIGHT FOR ASSIST. PATIENT MINIMAL ASSIST OUT OF BED. STANDBY ASSIST AMBULATING TO BATHROOM. VOID ONLY. PATIENT WASHED HANDS. STANDBY ASSIST TO BED. ALARM ON. PATIENT REQUEST FOR PUDDING. PUDDING OPENED & GIVEN TO PATIENT. BED LOW. CALL LIGHT WITHIN REACH. WILL CONTINUE TO MONITOR.
--- NOTE | 2020-04-25 07:45 | NUR ---
PATIENT IS ALERT/ORIENT. CALL LIGHT WITHIN REACH. VOICES NO NEEDS AT THIS TIME. WILL CONTINUE WITH PLAN OF CARE.
[2020-04-25 10:21] VITALS: BP 162/100
--- NOTE | 2020-04-25 12:27 | NUR ---
PATIENT NEEDS HELP WITH MEAL TRAYS DUE TO LEFT SHOULDER FRACTURE. SLING IN PLACE. FOOD CUT UP FOR PATIENTS AND CARTONS OPENED
--- NOTE | 2020-04-25 12:53 | NUR ---
SALINE LOCK REMOVED FROM RIGHT FOREARM. PATIENT HAS NO IV MEDICATIONS
--- NOTE | 2020-04-25 14:53 | NUR ---
I have reviewed this patient and I concur with the Shift Assessment completed by the Licensed Practical Nurse today this shift.
--- NOTE | 2020-04-25 17:45 | NUR ---
PATIENT SITTING UP IN BED TO EAT SUPPER. VOICES NO NEEDS AT THIS TIME.
--- NOTE | 2020-04-25 20:00 | NUR ---
PATIENT RECEIVED SITTING UP IN BED. ASSESSMENT & VITAL SIGNS DONE. SLING ON LEFT SHOULDER. DRESSING C/D/I. PATIENT STANDBY ASSIST TO THE BATHROOM. VOID & BM. PATIENT WASHED HER HANDS AND AMBULATED BACK TO BED. ALARM ON. CALL LIGHT & BEDSIDE TABLE WITHIN REACH. WILL CONTINUE TO MONITOR.
[2020-04-25 20:02] VITALS: BP 156/74
--- NOTE | 2020-04-26 05:10 | NUR ---
I have reviewed this patient and I concur with the Shift Assessment completed by the Licensed Practical Nurse today this shift.
--- NOTE | 2020-04-26 05:17 | NUR ---
PATIENT AWAKE TOILETED FOR THE 4TH TIME. VOID & BM'S EACH TIME. PATIENT RETURNED TO LOW BED. ALARM ON. BEDSIDE TABLE & CALL LIGHT WITHIN REACH. WILL CONTINUE TO MONITOR.
--- NOTE | 2020-04-26 08:39 | NUR ---
SHE IS GETTING A SHOWER THIS MORNING. SHE HAS A DRESSING TO THE LEFT SHOULDER AREA WITH A SLING AND A BRACE FOR HER LEFT THUMB. SHE HAS A SMALL RED AREA ON HER LEFT KNEE AND A SCAB TO HER LEFT LOWER ABD.
[2020-04-26 13:28] VITALS: BP 147/96
[2020-04-26 19:00] VITALS: BP 143/67
--- NOTE | 2020-04-26 20:25 | NUR ---
PATIENT RECEIVED SITTING UP IN BED WATCHING TV. ASSESSMENT & VITAL SIGNS DONE. SLING ON LEFT ARM, ELEVATED ON PILLOW. NO C/O PAIN OR DISTRESS AT THIS TIME. PATIENT STANDBY ASSIST INTO & OUT OF BED. ON & OFF COMMODE. PATIENT HAD VOID & BM. RETURNED TO LOW BED. ALARM ON. BEDSIDE TABLE & CALL LIGHT WITHIN REACH. WILL CONTINUE TO MONITOR.
--- NOTE | 2020-04-27 00:33 | NUR ---
I have reviewed this patient and I concur with the Shift Assessment completed by the Licensed Practical Nurse today this shift.
--- NOTE | 2020-04-27 02:30 | NUR ---
PATIENT EYES CLOSED. RESPIRATIONS 18 & EVEN. ALARM ON. BEDSIDE TABLE, & CALL LIGHT WITHIN REACH. WILL CONTINUE TO MONITOR.
--- NOTE | 2020-04-27 07:37 | NUR ---
PT RESTING IN BED WITH EYES OPEN CALL LIGHT IN REACH WILL MONITER
[2020-04-27 07:51] VITALS: BP 149/70
[2020-04-27 09:04] LABS: ANION GAP 12.7 mmol/L (8-16); CALCIUM 8.9 mg/dL (8.5-10.1); CARBON DIOXIDE 24.9 mmol/L (21.0-32.0); CREATININE - SERUM 0.8 mg/dL (0.6-1.3); POTASSIUM - SERUM 4.6 mmol/L (3.5-5.1)
[2020-04-27 09:18] LABS: BASOPHILS 0.8 % (0-2); EOSINOPHILS 3.7 % (0-7); HEMATOCRIT 34.4 % (36.0-48.0); IMMATURE GRANULOCYTES 0.7 % (0-5); LYMPHOCYTE ABS# 1.56 10x3/uL (1.18-3.74); LYMPHOCYTES 20.8 % (15-50); MCH 30.2 pg (26.0-34.0); MCV 94.5 fL (80.0-100.0); MEAN PLATELET VOLUME 8.8 fL (7.4-10.4); MONOCYTES 10.9 % (2-11); NEUTROPHIL ABS# 4.74 10x3/uL (1.56-6.13); NEUTROPHILS 63.1 % (40-80); PLATELET COUNT 263 10x3/uL (130-400); RBC 3.64 10x6/uL (4.00-5.40); RDW 16.4 % (11.5-14.5); WBC 7.5 10x3/uL (4.8-10.8)
--- NOTE | 2020-04-27 13:06 | NUR ---
Nutrition Follow-up: Diet: Regular + Ensure with meals PO intake: ~72% average x last 9 meals. She states that her appetite is "good." States that she is drinking Ensure. States that the megace she takes is working well and makes her very hungry. Last BM: 04/27/20 x 2. Wt: 82# (04/17/20)- no new weight Meds noted: thiamin, miralax, MVI megace. Labs reviewed Recommendations: -Needs new weight. -Recommend continue current diet and oral nutrition supplements. Encouraged PO intake. -RD will follow-up within 7 days.
[2020-04-27 20:00] VITALS: BP 138/72
--- NOTE | 2020-04-28 01:46 | NUR ---
PT RESTING WITH EYES CLOSED. RESPIRATIONS EVEN AND UNLABORED. HER CALL LIGHT IS WITHIN REACH, BED IS LOW AND BED ALARM ON.
--- NOTE | 2020-04-28 07:26 | NUR ---
PT RESTING IN BED WITH EYES OPEN CALL LIGHT IN REACH WILL MONITER
[2020-04-28 08:06] VITALS: BP 166/76
--- NOTE | 2020-04-28 18:39 | NUR ---
PT RESTING IN BED WITH EYES OPEN CALL LIGHT IN REACH WILL MONITER
--- NOTE | 2020-04-28 19:12 | NUR ---
PT SITTING UP IN WHEELCHAIR. CL IN REACH. DENIES NEEDS AT THIS TIME. BED IN LOW SIDE RAILS X2. RESP EVEN AND UNLABORED. A/O X4. LUNGS CLEAR. BOWEL ACTIVE X4. BED ALARM ON. LEFT ARM IN SLING. CPOC
[2020-04-28 20:15] VITALS: BP 145/74
--- NOTE | 2020-04-29 01:57 | NUR ---
I have reviewed this patient and I concur with the Shift Assessment completed by the Licensed Practical Nurse today this shift.
[2020-04-29 07:40] LABS: BASOPHILS 0.6 % (0-2); EOSINOPHILS 3.6 % (0-7); HEMATOCRIT 35.2 % (36.0-48.0); HEMOGLOBIN 11.3 g/dL (12-16); IMMATURE GRANULOCYTES 0.8 % (0-5); LYMPHOCYTE ABS# 1.62 10x3/uL (1.18-3.74); LYMPHOCYTES 25.1 % (15-50); MCH 30.6 pg (26.0-34.0); MCHC 32.1 g/dL (31.0-37.0); MCV 95.4 fL (80.0-100.0); MEAN PLATELET VOLUME 8.9 fL (7.4-10.4); MONOCYTES 11.3 % (2-11); NEUTROPHIL ABS# 3.79 10x3/uL (1.56-6.13); NEUTROPHILS 58.6 % (40-80); PLATELET COUNT 256 10x3/uL (130-400); RBC 3.69 10x6/uL (4.00-5.40); RDW 16.4 % (11.5-14.5); WBC 6.5 10x3/uL (4.8-10.8)
[2020-04-29 07:49] VITALS: BP 162/71
[2020-04-29 07:51] LABS: CALCIUM 8.8 mg/dL (8.5-10.1); CARBON DIOXIDE 26.5 mmol/L (21.0-32.0); CREATININE - SERUM 0.8 mg/dL (0.6-1.3); POTASSIUM - SERUM 4.5 mmol/L (3.5-5.1)
--- NOTE | 2020-04-29 13:11 | NUR ---
CARE TEAM MEETING: PATIENT IS DOING IN THERAPY AND WILL DISCHARGE IN THE AM 04/30/20. WILL CONTINUE TO FOLLOW WITH PATIENT.
--- NOTE | 2020-04-29 19:12 | NUR ---
RECIEVED PT LYING IN BED WATCHING TV. CL IN REACH. DENIES NEEDS AT THIS TIME. BED IN LOW SIDE RAILS X2. LUNGS CLEAR. BOWEL ACTIVE X4. A/O X4. RESP EVEN AND UNLABORED. LEFT ARM IN SLING. CPOC
[2020-04-29 20:35] VITALS: BP 164/67
--- NOTE | 2020-04-30 07:38 | NUR ---
I WOKE HER UP THIS MORNING. SHE HAS A SLING TO THE LEFT ARM/SHOULDER. HAS A DRESSING TO THE LEFT SHOULDER-CLEAN, DRY, AND INTACT. SHE IS WALKING TO THE BATHROOM. SHE IS DISCHARGING TODAY. THE CALL LIGHT IS WITHIN REACH AND THE BED ALARM IS ON.
[2020-04-30 08:00] VITALS: BP 165/75
[2020-04-30] MEDS ORDERED: HYDROCODON-ACE1 EA10 PO (08:31)
--- NOTE | 2020-04-30 08:33 | RHP ---
PATIENT: CLIFF LINDO MEDICAL RECORD: [id number] ACCOUNT: [id number] LOCATION:[facility] : 45 ADMISSION DATE: 04/16/20 REHABILITATION HISTORY AND PHYSICAL EXAMINATION POST ADMISSION PHYSICIAN EXAMINATION POST ADMISSION PHYSICAL EXAMINATION AND HISTORY AND PHYSICAL ADMITTING DIAGNOSIS: Disuse myopathy. HISTORY OF PRESENT ILLNESS: The patient is a 74-year-old female patient who presented to the ED after a fall at home. She was noted to have purple bruising to her left upper arm. She states that she lives with a friend who assists her with some of her ADLs. She has been having some increased weakness prior to this. Denied hitting her head. She was found to have a displaced left humeral head fracture. Orthopedic surgery was done. She was found to be initially a little bit hypoxic and was placed on supplemental O2. She admitted to alcohol and marijuana usage. She underwent a left total shoulder arthroscopy, reverse total on 04/12/2020 due to that left humeral head fracture. She has had some acute blood loss anemia, status post she has received 1 unit of packed red blood cells. She has been receiving occupational and physical therapy during her stay. She lives at home with a friend who assists her some once again, but she was independent with ADLs and mobility prior to this. Using a rolling walker. She is currently set up for mod assist with her ADLs. She is nonweightbearing to her left upper extremity and a sling is in use. She is moderate assist with her mobility with proximal muscle weakness. She wants to be discharged back home as close to her prior level of functioning as possible. COMORBIDITIES: Include weakness, subacute fall at home with left humeral head fracture. She has got hyponatremia, normocytic anemia. She has had multiple falls in the past, alcohol abuse. She is high risk for DTs. She got anxiety and depression, and acute blood loss anemia. PAST MEDICAL HISTORY: Significant for cataracts. She has got history of emphysema, compression fracture, essential tremor. PAST SURGICAL HISTORY: Includes hysterectomy and shoulder surgery. ALLERGIES: No known drug allergies. CURRENT MEDICATIONS: Thiamine 100 mg daily. She is on Zoloft 25 mg daily, polyethylene glycol 17 grams in 8 ounce of water daily, multivitamin daily, folic acid 1 mg daily, Mysoline 250 mg at bedtime, Colace 100 mg b.i.d., Valium 5 mg b.i.d., Protonix 40 mg b.i.d., Megace 400 mg b.i.d., and [place] 10/325 one tab q.4-6 hours p.r.n. pain. HABITS: Does have history of alcohol, tobacco, and marijuana abuse. FAMILY HISTORY: Noncontributory. SOCIAL HISTORY: The patient hopes to return back home and get back to her prior level of functioning. REVIEW OF SYSTEMS: GENERAL: She does complain of weakness and fatigue. HISTORY AND PHYSICAL [id number] CLIFF LINDO HEENT: Denies cold, cough, or congestion. CARDIOVASCULAR: Denies any chest pain. PHYSICAL EXAMINATION: VITAL SIGNS: Stable, afebrile. GENERAL: A very thin elderly female, in no distress upon exam. HEENT: Normocephalic and atraumatic. Mucosa moist. NECK: Supple. No lymphadenopathy. LUNGS: Clear in upper carrera. No wheeze, rhonchi or rales. HEART: Regular rate and rhythm. She does have a holosystolic murmur. ABDOMEN: Soft, benign, nondistended. Positive bowel sounds times 4. EXTREMITIES: She does have a sling to her place. Postoperative area looks pretty good to her shoulder. NEUROLOGIC: She does have some diffuse weakness. LABORATORY DATA: White count of 7.6, H&H 8.4 and 26.1, and platelet count is 220. Sodium 134, potassium 3.9, BUN and creatinine of 11 and 0.6, and blood sugar is noted to be 84. ASSESSMENT: This is a 74-year-old female patient admitted to rehab with a working diagnosis of disuse myopathy. The patient has potential to make improvement. We instituted the following multidisciplinary therapies including, not limited to physical, occupational, respiratory, speech, nutritional services, prosthetics and orthotics. Given her complex medical condition and risks for more complications, rehabilitation services cannot be provided at a low level of care such as skilled nurse facility. PLAN: 1. [facility] to include the following disciplines; A. Physical therapy to improve gait, all transfer skills and bed mobility to a modified independent level. B. Occupational therapy to improve activities of daily living. C. Case management to help with discharge planning and placement options. D. Nutrition to assist with nutritional needs. E. Rehabilitation nursing to assist in monitoring the patient's underlying medical conditions and to assist with any type of bowel or bladder management. 2. The patient's current medication and medical care will be continued. 3. The patient will be placed on standard fall precautions. 4. The patient's estimated length of stay is approximately 7-10 days. 5. We will discuss this patient during care team staff meeting this week. We will watch for any signs of DT. Continue on supplemental vitamins at this time and I will see again in the a.m. TRANSINT:[id number] Voice Confirmation ID: [id number] DOCUMENT ID: [id number] ALANA notes whether there has been none or any medical/functional change since admission: - No change since preadmission screen. ALANA attests patient continues to be appropriate for IRF: - Continues to be appropriate. HISTORY AND PHYSICAL [id number] CLIFF LINDO,MARCELA GUTIERREZ MD at 0833 CC: [id number] DICTATION DATE: 04/17/2033 BALL ASSEMBLER: 04/17/20 1033 ADM IN [facility] [address] [place] [address]
--- NOTE | 2020-04-30 09:30 | NUR ---
PATIENT DISCHARGING HOME TODAY. [facility] WILL RESUME THERAPY AT HOME. NO NEW DME NEEDED AT THIS TIME. CANDIDA SIGNED, IMM SERVED AND EXPLAINED, ONE GIVEN TO PATTIENT AND ONE FILED IN CHART. DR. HSIEH OFFICE WILL CALL PATIENT WITH AN APPOINTMENT. DR. BURRIS 05/06/20 @ 10:20. DISCHARGE INSTRUCTIONS FAXED TO PCP, [facility] , AUTH. # [id number] AND REVIEWED WITH PATIENT.
--- NOTE | 2020-04-30 13:45 | NUR ---
PAPER WORK GONE OVER WITH. QUESTIONS ANSWERED, FOLLOW UP APPOINTMENTS MADE, WRITEN PRESCRIPTION FOR [facility] GIVEN. TAKEN OUT VIA WHEELCHAIR.
== END 2020-04-30 13:49 | disposition home health service (06) | DRG 92 ==
LOC: D.REHAB 14:48
PROVIDERS: ADMIT Emergency Medicine; ATTEND Emergency Medicine
DX: G72.89 Other specified myopathies (principal); E87.1 Hypo-osmolality and hyponatremia; D62 Acute posthemorrhagic anemia; N17.9 Acute kidney failure, unspecified; N39.0 Urinary tract infection, site not specified; F17.203 Nicotine dependence unspecified, with withdrawal; R53.1 Weakness; D64.9 Anemia, unspecified; F10.10 Alcohol abuse, uncomplicated; F41.9 Anxiety disorder, unspecified; F32.9 Major depressive disorder, single episode, unspecified; S42.302D Unspecified fracture of shaft of humerus, left arm, subsequent encounter for fracture with routine healing; W19.XXXD Unspecified fall, subsequent encounter; M19.90 Unspecified osteoarthritis, unspecified site; J43.9 Emphysema, unspecified; E83.42 Hypomagnesemia